=== PATIENT | male | born 1950 | race Caucasian/White ===

== ENCOUNTER 2016-06-30 15:03 | Inpatient (IN) | payer OTHER ==
[2016-06-30 15:26] VITALS: BMI 39.7
--- NOTE | 2016-06-30 22:45 | HP ---
Admitting History and Physical - Admission Chief Complaint: Lt heel ulcer History of Present Illness: Pt is a 66 y/o morbidly obese male who was transferred from [facility] where he jis being treated fro chronic osteo of lt heel on IV zosyn(bacteroides) . Pt has had this chronic heel ulcer for at least 3 years. He has also been followed by vascular surgeon and it has been recommended that he have a LT BKA wc he has refused in the past but has now agreed. Pt denies any fever/chills. 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 (Peripheral neuropathy) Cardiovascular: Yes: HTN, Hyperlipdemia Gastrointestinal: Yes: GERD Heme/Onc: Yes: Anemia Infectious Disease: Yes: Other (Chronic osteomyelitis) Psych: Yes: Depression Endocrine: Yes: Diabetes Insipidus - Past Surgical History Additional Past Surgical History: LT TKR Cysto/TURP - Advance Directives Advance Directives: Yes: Health Care Proxy - Smoking History Smoking history: Former smoker Have you smoked in the past 12 months: No Aproximately how many cigarettes per day: 0 - Alcohol/Substance Use Hx Alcohol Use: No <Christina Peralta - Last Filed: 07/06/16 13:20> Home Medications <Dominic Levy - Last Filed: 07/04/16 12:16> <Christina Peralta - Last Filed: 07/06/16 13:20> - Allergies Allergies/Adverse Reactions: Allergies Allergy/AdvReac Type Severity Reaction Status Date / Time No Known Allergies Allergy Unverified 02/04/16 16:49 - Home Medications Home Medications: Ambulatory Orders Acetaminophen [Tylenol] 650 mg PO PRN 06/30/16 Amino Acids/Protein Hydrolys [Pro-Stat Sugar Free Liquid Pkt] 30 ml PO TID 06/30 Atorvastatin Calcium [Lipitor] 10 mg PO DAILY 06/30/16 Clonazepam [KlonoPIN -] 1 mg PO BID 06/30/16 Docusate Sodium [Colace -] 300 mg PO HS 06/30/16 Heparin - 5,000 unit SQ BID 06/30/16 Insulin Lispro [Humalog] 12 units SQ TID 06/30/16 Lactobacillus Acidophilus [Acidophilus] 1 each PO BID 06/30/16 Multivit-Min/Iron Fum/Folic AC [Dpoue-Nhungbs-Pdnuptyl Tablet] 1 each PO DAILY 06/30/16 Nifedipine [Procardia Capsule -] 10 mg PO BID 06/30/16 Pantoprazole Sodium [Protonix -] 40 mg PO DAILY 06/30/16 Piperacillin Sodium/Tazobactam [Piperacil-Tazobact 3.375 gm Vl] 3.375 gm IV Q6H 06/30/16 Polyethylene Glycol 3350 [Miralax 119 gm Btl -] 17 gm PO PRN 06/30/16 Quetiapine Fumarate [Seroquel -] 200 mg PO HS 06/30/16 Sennosides [Senokot] 2 tab PO DAILY 06/30/16 Family Disease History - Family Disease History Family History: Unremarkable <Christina Peralta - Last Filed: 07/06/16 13:20> Review of Systems - Review of Systems Constitutional: reports: Malaise HENT: reports: No Symptoms Neck: reports: No Symptoms Cardiovascular: reports: No Symptoms Respiratory: reports: No Symptoms Gastrointestinal: reports: No Symptoms Musculoskeletal: reports: Other (Lt heel ulcer) <Christina Peralta - Last Filed: 07/06/16 13:20> Physical Examination Vital Signs: Vital Signs Temperature 97.4 F L 07/04/16 08:49 Pulse Rate 52 L 07/04/16 08:49 Respiratory Rate 18 07/04/16 08:49 Blood Pressure 121/61 07/04/16 09:08 O2 Sat by Pulse Oximetry (%) 96 07/03/16 21:00 Labs: CBC, BMP 07/03/16 06:30 07/04/16 06:45 <Dominic Levy - Last Filed: 07/04/16 12:16> Vital Signs: Vital Signs Temperature 98.1 F 06/30/16 17:32 Pulse Rate 61 06/30/16 21:44 Respiratory Rate 20 06/30/16 17:32 Blood Pressure 142/80 06/30/16 21:44 O2 Sat by Pulse Oximetry (%) 98 06/30/16 15:35 Constitutional: Yes: Obese Neck: Yes: Supple Cardiovascular: Yes: WNL, Regular Rate and Rhythm Respiratory: Yes: WNL, Regular, CTA Bilaterally Gastrointestinal: Yes: WNL, Normal Bowel Sounds, Soft Musculoskeletal: Yes: Other (Lt heel ulcer about 3 cm) Edema: Yes Edema: LLE: Trace, RLE: Trace Neurological: Yes: WNL, Alert, Oriented <Christina Peralta - Last Filed: 07/06/16 13:20> Problem List - Problems (1) Chronic osteomyelitis involving lower leg Assessment/Plan: ID/surgical consults Cont IV zosyn Cont wound care Code(s): M86.669 - OTHER CHRONIC OSTEOMYELITIS, UNSPECIFIED TIBIA AND FIBULA (2) Diabetes Assessment/Plan: Cont humalog Cont sliding scale Code(s): E11.9 - TYPE 2 DIABETES MELLITUS WITHOUT COMPLICATIONS (3) Diabetic ulcer of ankle associated with type 1 diabetes mellitus Code(s): E10.622 - TYPE 1 DIABETES MELLITUS WITH OTHER SKIN ULCER L97.309 - NON-PRESSURE CHRONIC ULCER OF UNSP ANKLE WITH UNSP SEVERITY (4) HLD (hyperlipidemia) Assessment/Plan: Cont lipitor Code(s): E78.5 - HYPERLIPIDEMIA, UNSPECIFIED (5) HTN (hypertension) Assessment/Plan: Cont procardia Code(s): I10 - ESSENTIAL (PRIMARY) HYPERTENSION (6) Morbid obesity Code(s): E66.01 - MORBID (SEVERE) OBESITY DUE TO EXCESS CALORIES <Christina Peralta - Last Filed: 07/06/16 13:20>
[2016-06-30] MEDS ORDERED: ACETAMINOPHEN 325 MG TABLET (FP) PO SCH (23:00)
[2016-06-30] MEDS ORDERED: [UNRECOGNIZED DRUG - OTHER] IV SCH (23:00)
[2016-06-30] MEDS ORDERED: POLYETHYLENE GLYCOL 3350 119 GM BTL PO SCH (23:00)
[2016-06-30] MEDS ORDERED: NIFEdipine 10 MG CAPSULE (FP) PO SCH (23:15)
[2016-06-30] MEDS ORDERED: PIPERACILLIN/TAZOB 3.375 GM/50 ML PRE-DOCKED IVPB ONE (23:15)
[2016-06-30] MEDS ORDERED: clonazePAM 2 MG TABLET PO SCH (23:15)
[2016-07-01] MEDS: clonazePAM 0.5 MG TABLET PO SCH ×3 (00:26→21:15)
[2016-07-01] MEDS: DOCUSATE SODIUM 100 MG CAPSULE (FP) PO SCH ×2 (00:27→21:16)
[2016-07-01] MEDS: QUEtiapine FUMARATE 200 MG TABLET PO SCH ×2 (00:27→21:15)
[2016-07-01] MEDS ORDERED: PIPERACILLIN/TAZOB 3.375 GM/50 ML PRE-DOCKED IVPB SCH (03:00)
[2016-07-01] MEDS: AMINO ACIDS/PROTEIN HYDROLYS SUGAR-FREE 30 ML PACKET PO SCH ×3 (06:41→21:16)
[2016-07-01] MEDS: INSULIN (NOVOLOG) ASPART 100 UNITS/ML 10ML VIAL SQ SCH ×3 (06:42→16:43)
[2016-07-01 08:08] LABS: BASOPHIL 0.7 % (0-2.0); EOSINOPHIL 4.3 % (0-4.5); MCH 25.8 pg (25.7-33.7); MCHC 32.1 g/dl (32.0-35.9); MEAN CELL VOLUME 80.6 fl (80-96); MEAN PLT VOLUME 8.2 fl (7.5-11.1); NEUTROPHILS 58.6 % (42.8-82.8); PLATELET COUNT 205 K/MM3 (134-434); RDW 16.8 % (11.9-15.9); WHITE BLOOD COUNT 4.6 K/mm3 (4.0-10.0)
--- NOTE | 2016-07-01 08:34 | PN ---
Progress Note (short form) - Note Progress Note: ID Large diabetic left heel ulcer with underlying chronic osteomyelitis calcaneus Transfer to see Dr Wagner advised amputation Selected Entries 07/01/16 05:46 Temperature 97.6 F Pulse Rate 60 Respiratory 20 Rate Blood Pressure 130/70 Laboratory Tests 07/01/16 06:15 WBC 4.6 Hgb 11.3 L D Plt Count 205 D Assessment As above multiple PICC lines Incurable infection over 3 years left heel Plan Agree with amputation No antibiotics need be given now Dr Wagner to see Ishaan LEWIS Problem List - Problems (1) Chronic osteomyelitis involving lower leg Code(s): M86.669 - OTHER CHRONIC OSTEOMYELITIS, UNSPECIFIED TIBIA AND FIBULA (2) Diabetic ulcer of ankle associated with type 1 diabetes mellitus Code(s): E10.622 - TYPE 1 DIABETES MELLITUS WITH OTHER SKIN ULCER L97.309 - NON-PRESSURE CHRONIC ULCER OF UNSP ANKLE WITH UNSP SEVERITY
[2016-07-01 09:17] LABS: BILIRUBIN,TOTAL 0.3 mg/dL (0.2-1.0); CALCIUM 9.1 mg/dL (8.5-10.1); CREATININE 1.3 mg/dL (0.7-1.3); TOT PROT 7.2 g/dl (6.4-8.2)
--- NOTE | 2016-07-01 09:24 | CONS ---
DATE OF CONSULTATION: HISTORY: This is a 66-year-old insulin-dependent diabetic male who I am asked to see after being transferred from [facility] for continued management of a severe left heel chronic soft tissue infection. He is a known insulin diabetic with a history of a chronic osteomyelitis of the left heel, which over the last 3 years has failed to heal despite extensive wound care efforts along with multiple PICC lines for treatment with long-term antibiotics. He was admitted now to [facility] where cultures were obtained, and he was found to be positive for Bacteroides fragilis in the blood. He also had a wound culture with mixed kojo including gram-negative organisms including Morganella, Staphylococcus aureus, and Corynebacterium. He was treated with Infectious Disease input with Zosyn, and given the timing of the blood cultures and initiation of antibiotics on the , now would currently be considered day 9 or 10 of therapy. He is afebrile at this time and basically says he was transferred to [facility] as Dr. Wagner is his wound care physician, and the patient has been advised amputation in the past and now appears accepting of this option. Again, he is not febrile with no chills and was sitting up in bed when I saw him. PAST MEDICAL HISTORY: Includes diabetes, hypertension, morbid obesity, peripheral neuropathy, coronary artery disease, congestive heart failure. MEDICATIONS: Insulin, Flovent, Zyrtec, Coumadin, Zocor, Hytrin, Procardia, Dilaudid, simvastatin, Vasotec. ALLERGIES: None known. SOCIAL HISTORY: . Lives in [place]. Formerly worked for the [employer]. Now retired. No pets. No travel. No HIV risk factors. Former smoker. No history of alcohol abuse. FAMILY HISTORY: Reviewed and noncontributory. REVIEW OF SYSTEMS: Respiratory: No cough or shortness of breath. Cardiac: No chest pain or palpitations. Gastrointestinal: No nausea, vomiting, or diarrhea. Genitourinary: No dysuria, hematuria, urinary frequency. PHYSICAL EXAMINATION: General: He is an obese male weighing 285 pounds in no distress. Vital Signs: Temperature 97.6, pulse 60, blood pressure 136, respirations 20. Neck: Supple. Lungs: Clear to P and A. Heart: S1, S2. Regular rhythm without murmur. Abdomen: Soft and nontender without hepatosplenomegaly. Extremities: With bilateral lower extremity edema. A large, necrotic ulcer involving the left heel, which is deep to probe with minimal drainage. No cellulitis seen. Measuring approximately 7 x 8 cm. No labs currently available though most recent BUN 21, creatinine 1.24, GFR 60, glucose 165. ASSESSMENT: Chronic osteomyelitis of the left heel with recent flare up with complicating bacteremia with Bacteroides fragilis now on Zosyn approximately day 9 or 10. At this point, he may or may not need continuous antibiotics for the bacteremia, but I will continue them through the weekend and plan on stopping in 48-72 hours. Surgical consultation for amputation with Dr. Wagner will be requested. Complete labs have been ordered but not yet available in the medical record as of his transfer here. SABINA PALOMARES M.D. [id number]
[2016-07-01] MEDS: PANTOPRAZOLE 40 MG TABLET (FP) PO SCH (09:28)
[2016-07-01] MEDS: LACTOBACILLUS ACIDOPHILUS 1 EACH TAB (FP) PO SCH ×2 (09:28→21:16)
[2016-07-01] MEDS: ATORVASTATIN CA 10 MG TABLET (FP) PO SCH (09:28)
[2016-07-01] MEDS: PIPERACILLIN/TAZOB 3.375 GM 50 ML IVPB SCH ×3 (09:29→21:05)
[2016-07-01] MEDS: MULTIVITAMINS (DAILY MVI) TABLET (FP) PO SCH (09:29)
[2016-07-01] MEDS: HEPARIN NA (PORCINE) 5,000 UNITS/ML 1ML VIAL SQ SCH ×2 (09:29→21:15)
[2016-07-01] MEDS: SENNOSIDES 8.6MG TABLET (FP) PO SCH (09:29)
[2016-07-01] MEDS ORDERED: NIFEdipine 10 MG CAPSULE (FP) PO SCH (10:00)
[2016-07-01] MEDS ORDERED: INSULIN (NOVOLOG) ASPART 100 UNITS/ML 10ML VIAL ONE ×2 (11:08→16:42)
[2016-07-01] MEDS ORDERED: PT OWN MED DRAWER 7, Y5N ONE (20:58)
[2016-07-01] MEDS ORDERED: DOCUSATE SODIUM 100 MG CAPSULE (FP) PO SCH (22:00)
--- NOTE | 2016-07-01 22:38 | PN ---
Progress Note, Physician History of Present Illness: No new complaints - Current Medication List Current Medications: Active Medications Acetaminophen (Tylenol -) 650 mg PO PRN [facility] Amino Acids (Prostat Sugar-Free Packet -) 30 ml PO TID [facility] Last Admin: 07/01/16 21:16 Dose: Not Given Atorvastatin Calcium (Lipitor -) 10 mg PO DAILY [facility] Last Admin: 07/01/16 09:28 Dose: 10 mg Clonazepam (Klonopin -) 1 mg PO BID [facility] Last Admin: 07/01/16 21:15 Dose: 1 mg Docusate Sodium (Colace -) 300 mg PO HS [facility] Last Admin: 07/01/16 21:16 Dose: 300 mg Heparin Sodium (Porcine) (Heparin -) 5,000 unit SQ BID [facility] Last Admin: 07/01/16 21:15 Dose: 5,000 unit Piperacillin Sod/Tazobactam Sod (Zosyn 3.375gm Ivpb (Pre-Docked)) 50 mls @ 100 mls/hr IVPB Q6H-IV [facility] Last Admin: 07/01/16 21:05 Dose: 100 mls/hr Insulin Aspart (Novolog Vial) 12 units SQ TIDAC [facility] Last Admin: 07/01/16 16:43 Dose: 12 units Lactobacillus Acidophilus (Bacid -) 1 tab PO BID [facility] Last Admin: 07/01/16 21:16 Dose: 1 tab Multivitamins/Minerals/Vitamin C (Tab-A-Vit -) 1 tab PO DAILY [facility] Last Admin: 07/01/16 09:29 Dose: 1 tab Nifedipine (Procardia Capsule -) 10 mg PO BID [facility] Pantoprazole Sodium (Protonix -) 40 mg PO DAILY [facility] Last Admin: 07/01/16 09:28 Dose: 40 mg Polyethylene Glycol (Miralax (For Daily Use) -) 17 gm PO PRN [facility] Quetiapine Fumarate (Seroquel -) 200 mg PO HS [facility] Last Admin: 07/01/16 21:15 Dose: 200 mg Senna (Senna -) 2 tab PO DAILY [facility] Last Admin: 07/01/16 09:29 Dose: Not Given - Objective Vital Signs: Vital Signs Temperature 98.2 F 07/01/16 18:00 Pulse Rate 51 L 07/01/16 18:00 Respiratory Rate 20 07/01/16 18:00 Blood Pressure 124/67 07/01/16 18:00 O2 Sat by Pulse Oximetry (%) 98 06/30/16 21:00 Constitutional: Yes: Well Nourished Cardiovascular: Yes: WNL, Regular Rate and Rhythm Respiratory: Yes: WNL, Regular, CTA Bilaterally Gastrointestinal: Yes: WNL, Normal Bowel Sounds, Soft, Abdomen, Obese Extremities: Yes: Other (Dressing on Lt heel w/ some oozing) Labs: CBC, BMP 07/01/16 06:15 07/01/16 06:15 Problem List - Problems (1) Chronic osteomyelitis involving lower leg Assessment/Plan: ID consult appreciated Vascular consult Probable amputation Cont IV zosyn Code(s): M86.669 - OTHER CHRONIC OSTEOMYELITIS, UNSPECIFIED TIBIA AND FIBULA (2) Diabetic ulcer of ankle associated with type 1 diabetes mellitus Code(s): E10.622 - TYPE 1 DIABETES MELLITUS WITH OTHER SKIN ULCER L97.309 - NON-PRESSURE CHRONIC ULCER OF UNSP ANKLE WITH UNSP SEVERITY
[2016-07-02] MEDS: PIPERACILLIN/TAZOB 3.375 GM 50 ML IVPB SCH ×4 (03:28→21:05)
[2016-07-02] MEDS: AMINO ACIDS/PROTEIN HYDROLYS SUGAR-FREE 30 ML PACKET PO SCH ×3 (06:28→21:19)
[2016-07-02] MEDS: INSULIN (NOVOLOG) ASPART 100 UNITS/ML 10ML VIAL SQ SCH ×3 (06:28→17:13)
[2016-07-02] MEDS: MULTIVITAMINS (DAILY MVI) TABLET (FP) PO SCH (09:13)
[2016-07-02] MEDS: HEPARIN NA (PORCINE) 5,000 UNITS/ML 1ML VIAL SQ SCH ×2 (09:13→21:19)
[2016-07-02] MEDS: clonazePAM 0.5 MG TABLET PO SCH ×2 (09:13→21:18)
[2016-07-02] MEDS: ATORVASTATIN CA 10 MG TABLET (FP) PO SCH (09:13)
[2016-07-02] MEDS: LACTOBACILLUS ACIDOPHILUS 1 EACH TAB (FP) PO SCH ×2 (09:13→21:18)
[2016-07-02] MEDS: PANTOPRAZOLE 40 MG TABLET (FP) PO SCH (09:13)
[2016-07-02] MEDS: SENNOSIDES 8.6MG TABLET (FP) PO SCH (09:13)
--- NOTE | 2016-07-02 09:33 | CONSULT ---
Addendum entered and electronically signed by Karel Collins PA 07/03/16 11:14: f/u LLE tib/fib xray to identify tibial stem (h/o TKR) Original Note: - Consultation REQUESTING PROVIDER: Bryant Wagner - Vascular Surgery / Wound Care CONSULT REQUEST: We have been asked to surgically evaluate this patient for diabetic left heel ulcer. PCP: Christina Peralta HISTORY OF PRESENT ILLNESS: Called to eval 66yo male with PMHx noted below. Admitted to [facility] with chronic left heel (diabteic ulcer). Patient states he's had this ulcer for 3 years and still hasn't been able to close. He informs me that he has had multiple PICC lines to treat the associated calcaneal osteomyelitis. He tried wound VAC therapy without success. ID note appreciated. Patient states he's had a converation with Dr. Wagner regarding LLE BKA and wishes to proceed if it's deemed the most prudent. A elizabeth cath was placed in Er as he was in retention. He ambulates with a walker. Denies: diaphoresis, n/v/f, cough, SOB, DUFF, hematuria, flank pain PMHx: Diabetes, peripheral neuropathy, chronic left heel dm ulcer x3 yrs, hyperlipidemia PSHx: Left total knee replacement, Cysto/TURP HOME MEDS Acetaminophen [Tylenol] 650 mg PO PRN 06/30/16 Amino Acids/Protein Hydrolys [Pro-Stat Sugar Free Liquid Pkt] 30 ml PO TID 06/30 Atorvastatin Calcium [Lipitor] 10 mg PO DAILY 06/30/16 Clonazepam [KlonoPIN -] 1 mg PO BID 06/30/16 Docusate Sodium [Colace -] 300 mg PO HS 06/30/16 Heparin - 5,000 unit SQ BID 06/30/16 Insulin Lispro [Humalog] 12 units SQ TID 06/30/16 Lactobacillus Acidophilus [Acidophilus] 1 each PO BID 06/30/16 Multivit-Min/Iron Fum/Folic AC [Goxmd-Hxuzoss-Kegphuqh Tablet] 1 each PO DAILY 06/30/16 Nifedipine [Procardia Capsule -] 10 mg PO BID 06/30/16 Pantoprazole Sodium [Protonix -] 40 mg PO DAILY 06/30/16 Piperacillin Sodium/Tazobactam [Piperacil-Tazobact 3.375 gm Vl] 3.375 gm IV Q6H 06/30/16 Polyethylene Glycol 3350 [Miralax 119 gm Btl -] 17 gm PO PRN 06/30/16 Quetiapine Fumarate [Seroquel -] 200 mg PO HS 06/30/16 Sennosides [Senokot] 2 tab PO DAILY 06/30/16 Allergies: NKDA ROS: CONSTITUTIONAL: Absent: See above. generalized weakness, malaise, loss of appetite, weight change CARDIOVASCULAR: Absent: See above. irregular heart rate, lightheadedness RESPIRATORY: Absent: See above. wheezing, stridor, hemoptysis GASTROINTESTINAL: Absent: See above. abdominal pain, abdominal distension, constipation, melena, hematochezia GENITOURINARY: Absent: See above. dysuria, frequency, urgency, hesitancy, genital pain MUSCULOSKELETAL: Absent: myalgia, arthralgia, joint swelling, back pain, neck pain SKIN: Absent: rash, itching, pallor HEMATOLOGIC/IMMUNOLOGIC: Absent: easy bleeding, easy bruising, lymphadenopathy NEUROLOGIC: Absent: See above. headache, focal weakness, paresthesias, dizziness , seizure, mental status changes PSYCHIATRIC: Absent: anxiety, depression, suicidal or homicidal ideation, hallucinations. PE: GENERAL: Awake, alert, and fully oriented, in no acute distress. HEAD: Normal with no signs of trauma. EYES: PERRL, sclera anicteric, conjunctiva clear. NECK: Normal ROM, supple without lymphadenopathy, JVD, or masses. LUNGS: CTA b/l anteriorly HEART: RRR ABDOMEN: Obese. Soft, nt. nd. MUSCULOSKELETAL: Normal ROM at all joints. No bony deformities or tenderness. No CVA tenderness. UE: 2+ pulses, warm, well-perfused. No cyanosis. Cap refill <2 seconds. No peripheral edema. LE: 2+ pulses, warm, well-perfused. No calf tenderness. No peripheral edema. Chronic left heel dm ulcer, pink granulation tissue to base. Centrally, it probes down to calcaneous. Little bit of slough to center of wound. Evidence of wound contacture to edges. No foul odor. No induration bogginess appreciated. No purulent drainage. NEUROLOGICAL: Normal speech, gait not observed. PSYCH: Cooperative. Good eye contact. Appropriate mood and affect. SKIN: Warm, dry, normal turgor, no rashes or lesions noted. Last Vital Signs Temp Pulse Resp BP Pulse Ox 97.6 F 54 L 20 110/60 99 07/02/16 05:49 07/02/16 05:49 07/02/16 05:49 07/02/16 05:49 07/01/16 21:00 Lab Results WBC 4.6 K/mm3 (4.0-10.0) 07/01/16 06:15 RBC 4.37 M/mm3 (4.00-5.60) 07/01/16 06:15 Hgb 11.3 GM/dL (11.7-16.9) L D 07/01/16 06:15 Hct 35.2 % (35.4-49) L 07/01/16 06:15 MCV 80.6 fl (80-96) 07/01/16 06:15 MCHC 32.1 g/dl (32.0-35.9) 07/01/16 06:15 RDW 16.8 % (11.9-15.9) H 07/01/16 06:15 Plt Count 205 K/MM3 (134-434) D 07/01/16 06:15 Sodium 138 mmol/L (136-145) 07/01/16 06:15 Potassium 4.7 mmol/L (3.5-5.1) 07/01/16 06:15 Chloride 98 mmol/L (98-107) 07/01/16 06:15 Carbon Dioxide 32 mmol/L (21-32) 07/01/16 06:15 Anion Gap 8 (8-16) 07/01/16 06:15 BUN 26 mg/dL (7-18) H D 07/01/16 06:15 Creatinine 1.3 mg/dL (0.7-1.3) 07/01/16 06:15 Random Glucose 148 mg/dL (74-106) H 07/01/16 06:15 Calcium 9.1 mg/dL (8.5-10.1) 07/01/16 06:15 Problem List - Problems (1) Chronic osteomyelitis involving lower leg Assessment/Plan: Daily dressing changes with santyl to central portion. Offload all pressure sensitive areas ID note appreciated Cont medical management at this time. Cardio clearance Type and screen [facility] Medical optimization / clearance for possible LLE BKA Above plan discussed with Dr. Wagner states he will see patient first thing in the morning and decide on definitive plan. Code(s): M86.669 - OTHER CHRONIC OSTEOMYELITIS, UNSPECIFIED TIBIA AND FIBULA Visit type - Case Type Case Type: ED Admission - Emergency Emergency Visit: Yes ED Registration Date: 06/30/16 Care time: The patient presented to the Emergency Department on the above date and was hospitalized for further evaluation of their emergent condition. - New patient This patient is new to me today: Yes Date on this admission: 07/02/16
[2016-07-02] MEDS ORDERED: INSULIN (NOVOLOG) ASPART 100 UNITS/ML 10ML VIAL ONE (11:03)
--- NOTE | 2016-07-02 11:33 | PN ---
Progress Note, Physician History of Present Illness: Awake, alert No c/o heel pain No fever/ chills - Current Medication List Current Medications: Active Medications Acetaminophen (Tylenol -) 650 mg PO PRN [facility] Amino Acids (Prostat Sugar-Free Packet -) 30 ml PO TID [facility] Last Admin: 07/02/16 06:28 Dose: Not Given Atorvastatin Calcium (Lipitor -) 10 mg PO DAILY [facility] Last Admin: 07/02/16 09:13 Dose: 10 mg Clonazepam (Klonopin -) 1 mg PO BID [facility] Last Admin: 07/02/16 09:13 Dose: 1 mg Docusate Sodium (Colace -) 300 mg PO HS [facility] Last Admin: 07/01/16 21:16 Dose: 300 mg Heparin Sodium (Porcine) (Heparin -) 5,000 unit SQ BID [facility] Last Admin: 07/02/16 09:13 Dose: 5,000 unit Piperacillin Sod/Tazobactam Sod (Zosyn 3.375gm Ivpb (Pre-Docked)) 50 mls @ 100 mls/hr IVPB Q6H-IV [facility] Last Admin: 07/02/16 09:13 Dose: 100 mls/hr Insulin Aspart (Novolog Vial) 12 units SQ TIDAC [facility] Last Admin: 07/02/16 11:04 Dose: 12 units Lactobacillus Acidophilus (Bacid -) 1 tab PO BID [facility] Last Admin: 07/02/16 09:13 Dose: 1 tab Multivitamins/Minerals/Vitamin C (Tab-A-Vit -) 1 tab PO DAILY [facility] Last Admin: 07/02/16 09:13 Dose: 1 tab Nifedipine (Procardia Capsule -) 10 mg PO BID [facility] Pantoprazole Sodium (Protonix -) 40 mg PO DAILY [facility] Last Admin: 07/02/16 09:13 Dose: 40 mg Polyethylene Glycol (Miralax (For Daily Use) -) 17 gm PO PRN [facility] Quetiapine Fumarate (Seroquel -) 200 mg PO HS [facility] Last Admin: 07/01/16 21:15 Dose: 200 mg Senna (Senna -) 2 tab PO DAILY [facility] Last Admin: 07/02/16 09:13 Dose: Not Given - Objective Vital Signs: Vital Signs Temperature 97.9 F 07/02/16 10:00 Pulse Rate 83 07/02/16 10:00 Respiratory Rate 20 07/02/16 10:00 Blood Pressure 121/68 07/02/16 10:00 O2 Sat by Pulse Oximetry (%) 99 07/01/16 21:00 Constitutional: Yes: No Distress, Obese Eyes: Yes: Conjunctiva Clear Cardiovascular: Yes: Regular Rate and Rhythm, S1, S2 Respiratory: Yes: CTA Bilaterally Gastrointestinal: Yes: Normal Bowel Sounds, Soft, Abdomen, Obese. No: Tenderness Edema: Yes Integumentary: Yes: Other (+ L heel ulcer ; no purulent drainage) Labs: CBC, BMP 07/01/16 06:15 07/01/16 06:15 Assessment/Plan Infected non-healing L heel ulcer Chronic osteomyelitis L heel Bacteroides bacteremia by hx IDDM Continue Zosyn Local wound care Surgical follow up
[2016-07-02 13:21] LABS: INR 1.16 (0.82-1.09); PROTHROMBIN TIME (PATIENT) 12.8 SEC (9.98-11.88)
--- NOTE | 2016-07-02 20:44 | PN ---
Progress Note, Physician History of Present Illness: No new complaints - Current Medication List Current Medications: Active Medications Acetaminophen (Tylenol -) 650 mg PO PRN [facility] Amino Acids (Prostat Sugar-Free Packet -) 30 ml PO TID [facility] Last Admin: 07/02/16 13:36 Dose: Not Given Atorvastatin Calcium (Lipitor -) 10 mg PO DAILY [facility] Last Admin: 07/02/16 09:13 Dose: 10 mg Clonazepam (Klonopin -) 1 mg PO BID [facility] Last Admin: 07/02/16 09:13 Dose: 1 mg Docusate Sodium (Colace -) 300 mg PO HS [facility] Last Admin: 07/01/16 21:16 Dose: 300 mg Heparin Sodium (Porcine) (Heparin -) 5,000 unit SQ BID [facility] Last Admin: 07/02/16 09:13 Dose: 5,000 unit Piperacillin Sod/Tazobactam Sod (Zosyn 3.375gm Ivpb (Pre-Docked)) 50 mls @ 100 mls/hr IVPB Q6H-IV [facility] Last Admin: 07/02/16 15:05 Dose: 100 mls/hr Insulin Aspart (Novolog Vial) 12 units SQ TIDAC [facility] Last Admin: 07/02/16 17:13 Dose: 12 units Lactobacillus Acidophilus (Bacid -) 1 tab PO BID [facility] Last Admin: 07/02/16 09:13 Dose: 1 tab Multivitamins/Minerals/Vitamin C (Tab-A-Vit -) 1 tab PO DAILY [facility] Last Admin: 07/02/16 09:13 Dose: 1 tab Nifedipine (Procardia Capsule -) 10 mg PO BID [facility] Pantoprazole Sodium (Protonix -) 40 mg PO DAILY [facility] Last Admin: 07/02/16 09:13 Dose: 40 mg Polyethylene Glycol (Miralax (For Daily Use) -) 17 gm PO PRN [facility] Quetiapine Fumarate (Seroquel -) 200 mg PO HS [facility] Last Admin: 07/01/16 21:15 Dose: 200 mg Senna (Senna -) 2 tab PO DAILY [facility] Last Admin: 07/02/16 09:13 Dose: Not Given - Objective Vital Signs: Vital Signs Temperature 97.7 F 07/02/16 18:00 Pulse Rate 62 07/02/16 18:00 Respiratory Rate 20 07/02/16 18:00 Blood Pressure 98/54 07/02/16 18:00 O2 Sat by Pulse Oximetry (%) 99 07/01/16 21:00 Constitutional: Yes: Well Nourished Neck: Yes: Supple Cardiovascular: Yes: WNL, Regular Rate and Rhythm Respiratory: Yes: WNL, Regular, CTA Bilaterally Gastrointestinal: Yes: WNL, Normal Bowel Sounds, Soft Musculoskeletal: Yes: Other (LT heel ulcer) Labs: CBC, BMP 07/01/16 06:15 07/01/16 06:15 INR, PTT INR 1.16 (0.82-1.09) H 07/02/16 12:40 Problem List - Problems (1) Chronic osteomyelitis involving lower leg Assessment/Plan: ID/surgical consults appreciated Probable amputation Cont IV zosyn Will get cardio consult for clearance Check echo Code(s): M86.669 - OTHER CHRONIC OSTEOMYELITIS, UNSPECIFIED TIBIA AND FIBULA (2) Diabetic ulcer of ankle associated with type 1 diabetes mellitus Code(s): E10.622 - TYPE 1 DIABETES MELLITUS WITH OTHER SKIN ULCER L97.309 - NON-PRESSURE CHRONIC ULCER OF UNSP ANKLE WITH UNSP SEVERITY Assessment/Plan 1.HTN BP stable Check echo DC asa for surgery 2.HLD Cont lipitor 3.Diabetes Cont novalog/sliding scale 4.Morbid obesity 5.Depression Cont seroquel
[2016-07-02] MEDS ORDERED: PT OWN MED DRAWER 7, Y5N ONE (21:00)
[2016-07-02] MEDS: DOCUSATE SODIUM 100 MG CAPSULE (FP) PO SCH (21:18)
[2016-07-02] MEDS: QUEtiapine FUMARATE 200 MG TABLET PO SCH (21:18)
[2016-07-03] MEDS: PIPERACILLIN/TAZOB 3.375 GM 50 ML IVPB SCH ×2 (02:36→09:10)
[2016-07-03] MEDS: AMINO ACIDS/PROTEIN HYDROLYS SUGAR-FREE 30 ML PACKET PO SCH ×3 (06:13→21:32)
[2016-07-03] MEDS: INSULIN (NOVOLOG) ASPART 100 UNITS/ML 10ML VIAL SQ SCH ×3 (06:15→17:20)
[2016-07-03 07:24] LABS: EOSINOPHIL 5.2 % (0-4.5); MEAN PLT VOLUME 7.9 fl (7.5-11.1); NEUTROPHILS 68.9 % (42.8-82.8); PLATELET COUNT 180 K/MM3 (134-434); RDW 17.4 % (11.9-15.9); WHITE BLOOD COUNT 5.7 K/mm3 (4.0-10.0)
[2016-07-03] MEDS: PANTOPRAZOLE 40 MG TABLET (FP) PO SCH (09:13)
[2016-07-03] MEDS: SENNOSIDES 8.6MG TABLET (FP) PO SCH (09:13)
[2016-07-03] MEDS: LACTOBACILLUS ACIDOPHILUS 1 EACH TAB (FP) PO SCH ×2 (09:13→21:31)
[2016-07-03] MEDS: MULTIVITAMINS (DAILY MVI) TABLET (FP) PO SCH (09:13)
[2016-07-03] MEDS: ATORVASTATIN CA 10 MG TABLET (FP) PO SCH (09:13)
[2016-07-03] MEDS: HEPARIN NA (PORCINE) 5,000 UNITS/ML 1ML VIAL SQ SCH ×2 (09:14→21:32)
[2016-07-03] MEDS: clonazePAM 0.5 MG TABLET PO SCH ×2 (09:14→21:31)
--- NOTE | 2016-07-03 09:26 | CON.CARD ---
Consult Consult Specialty:: Cardiology Reason for Consultation:: preop clearence - History of Present Illness History of Present Illness: 66yo male with PMHx Diabetes, peripheral neuropathy, chronic left heel dm ulcer x3 yrs, hyperlipidemia. Admitted to [facility] with chronic left heel (diabteic ulcer) . Patient states he's had this ulcer for 3 years and still hasn't been able to close. He informs me that he has had multiple PICC lines to treat the associated calcaneal osteomyelitis. He tried wound VAC therapy without success. ID note appreciated. Patient states he's had a converation with Dr. Wagner regarding LLE BKA and wishes to proceed if it's deemed the most prudent. A elizabeth cath was placed in [place] as he was in retention. He ambulates with a walker. - Past Medical History Cardio/Vascular: Yes: HTN, Hyperlipdemia - Alcohol/Substance Use Hx Alcohol Use: No - Smoking History Smoking history: Former smoker Have you smoked in the past 12 months: No Aproximately how many cigarettes per day: 0 Home Medications - Allergies Allergies/Adverse Reactions: Allergies Allergy/AdvReac Type Severity Reaction Status Date / Time No Known Allergies Allergy Unverified 02/04/16 16:49 - Home Medications Home Medications: Ambulatory Orders Acetaminophen [Tylenol] 650 mg PO PRN 06/30/16 Amino Acids/Protein Hydrolys [Pro-Stat Sugar Free Liquid Pkt] 30 ml PO TID 06/30 Atorvastatin Calcium [Lipitor] 10 mg PO DAILY 06/30/16 Clonazepam [KlonoPIN -] 1 mg PO BID 06/30/16 Docusate Sodium [Colace -] 300 mg PO HS 06/30/16 Heparin - 5,000 unit SQ BID 06/30/16 Insulin Lispro [Humalog] 12 units SQ TID 06/30/16 Lactobacillus Acidophilus [Acidophilus] 1 each PO BID 06/30/16 Multivit-Min/Iron Fum/Folic AC [Ecnha-Kagnepe-Yhkcghhf Tablet] 1 each PO DAILY 06/30/16 Nifedipine [Procardia Capsule -] 10 mg PO BID 06/30/16 Pantoprazole Sodium [Protonix -] 40 mg PO DAILY 06/30/16 Piperacillin Sodium/Tazobactam [Piperacil-Tazobact 3.375 gm Vl] 3.375 gm IV Q6H 06/30/16 Polyethylene Glycol 3350 [Miralax 119 gm Btl -] 17 gm PO PRN 06/30/16 Quetiapine Fumarate [Seroquel -] 200 mg PO HS 06/30/16 Sennosides [Senokot] 2 tab PO DAILY 06/30/16 Review of Systems - Review of Systems Constitutional: reports: No Symptoms Eyes: reports: No Symptoms HENT: reports: No Symptoms Neck: reports: No Symptoms Cardiovascular: reports: Edema Gastrointestinal: reports: No Symptoms Genitourinary: reports: No Symptoms Breasts: reports: No Symptoms Reported Musculoskeletal: reports: No Symptoms Integumentary: reports: No Symptoms Neurological: reports: No Symptoms Endocrine: reports: No Symptoms Hematology/Lymphatic: reports: No Symptoms Psychiatric: reports: No Symptoms Vital Signs: Vital Signs Temperature 97.1 F L 07/03/16 08:07 Pulse Rate 56 L 07/03/16 08:07 Respiratory Rate 20 07/03/16 08:07 Blood Pressure 118/69 07/03/16 08:07 O2 Sat by Pulse Oximetry (%) 99 07/01/16 21:00 - Other Data Labs, Other Data: CBC, BMP 07/03/16 06:30 07/01/16 06:15 INR, PTT INR 1.16 (0.82-1.09) H 07/02/16 12:40 Imaging - Results Chest X-ray: Pending EKG: Pending Problem List - Problems (1) Chronic osteomyelitis involving lower leg Code(s): M86.669 - OTHER CHRONIC OSTEOMYELITIS, UNSPECIFIED TIBIA AND FIBULA (2) Diabetic ulcer of ankle associated with type 1 diabetes mellitus Code(s): E10.622 - TYPE 1 DIABETES MELLITUS WITH OTHER SKIN ULCER L97.309 - NON-PRESSURE CHRONIC ULCER OF UNSP ANKLE WITH UNSP SEVERITY (3) Closed head injury Code(s): S09.90XA - UNSPECIFIED INJURY OF HEAD, INITIAL ENCOUNTER (4) Osteomyelitis Code(s): M86.9 - OSTEOMYELITIS, UNSPECIFIED Qualifiers: Osteomyelitis location: foot Laterality: left Chronicity: chronic Qualified Code(s): M86.672 - Other chronic osteomyelitis, left ankle and foot (5) Pseudomonas aeruginosa infection Code(s): A49.8 - OTHER BACTERIAL INFECTIONS OF UNSPECIFIED SITE Assessment/Plan ostio dm htn hld r/o ashd preop eval for possible LL ext BKA Plan echo ekg lipid profile - keep ldl below 70 persantine MIBI stress test
--- NOTE | 2016-07-03 10:49 | PN ---
Progress Note, Physician Chief Complaint: ID Zosyn day 12 therapy IV antibiotics for bacteremia Bacteroides Remains stable - Current Medication List Current Medications: Active Medications Acetaminophen (Tylenol -) 650 mg PO PRN [facility] Amino Acids (Prostat Sugar-Free Packet -) 30 ml PO TID [facility] Last Admin: 07/03/16 06:13 Dose: Not Given Atorvastatin Calcium (Lipitor -) 10 mg PO DAILY [facility] Last Admin: 07/03/16 09:13 Dose: 10 mg Clonazepam (Klonopin -) 1 mg PO BID [facility] Last Admin: 07/03/16 09:14 Dose: Not Given Docusate Sodium (Colace -) 300 mg PO HS [facility] Last Admin: 07/02/16 21:18 Dose: 300 mg Heparin Sodium (Porcine) (Heparin -) 5,000 unit SQ BID [facility] Last Admin: 07/03/16 09:14 Dose: 5,000 unit Piperacillin Sod/Tazobactam Sod (Zosyn 3.375gm Ivpb (Pre-Docked)) 50 mls @ 100 mls/hr IVPB Q6H-IV [facility] Last Admin: 07/03/16 09:10 Dose: 100 mls/hr Insulin Aspart (Novolog Vial) 12 units SQ TIDAC [facility] Last Admin: 07/03/16 06:15 Dose: 12 units Lactobacillus Acidophilus (Bacid -) 1 tab PO BID [facility] Last Admin: 07/03/16 09:13 Dose: 1 tab Multivitamins/Minerals/Vitamin C (Tab-A-Vit -) 1 tab PO DAILY [facility] Last Admin: 07/03/16 09:13 Dose: 1 tab Nifedipine (Procardia Capsule -) 10 mg PO BID [facility] Pantoprazole Sodium (Protonix -) 40 mg PO DAILY [facility] Last Admin: 07/03/16 09:13 Dose: 40 mg Polyethylene Glycol (Miralax (For Daily Use) -) 17 gm PO PRN [facility] Quetiapine Fumarate (Seroquel -) 200 mg PO HS [facility] Last Admin: 07/02/16 21:18 Dose: 200 mg Senna (Senna -) 2 tab PO DAILY [facility] Last Admin: 07/03/16 09:13 Dose: 2 tab - Objective Vital Signs: Vital Signs Temperature 97.1 F L 07/03/16 08:07 Pulse Rate 56 L 07/03/16 08:07 Respiratory Rate 20 07/03/16 08:07 Blood Pressure 118/69 07/03/16 08:07 O2 Sat by Pulse Oximetry (%) 99 07/01/16 21:00 Constitutional: Yes: Well Nourished, No Distress, Obese Neck: Yes: WNL, Supple Cardiovascular: Yes: Regular Rate and Rhythm, S1, S2 Respiratory: Yes: WNL, Regular, CTA Bilaterally Gastrointestinal: Yes: WNL, Normal Bowel Sounds, Soft. No: Tenderness, Tenderness, Rebound Extremities: Yes: Other (LE chronic nonhealing wound heel) Labs: CBC, BMP 07/03/16 06:30 07/01/16 06:15 INR, PTT INR 1.16 (0.82-1.09) H 07/02/16 12:40 Problem List - Problems (1) Chronic osteomyelitis involving lower leg Code(s): M86.669 - OTHER CHRONIC OSTEOMYELITIS, UNSPECIFIED TIBIA AND FIBULA (2) Diabetic ulcer of ankle associated with type 1 diabetes mellitus Code(s): E10.622 - TYPE 1 DIABETES MELLITUS WITH OTHER SKIN ULCER L97.309 - NON-PRESSURE CHRONIC ULCER OF UNSP ANKLE WITH UNSP SEVERITY Assessment/Plan Laboratory Tests 07/01/16 07/02/16 07/03/16 06:15 06:20 06:30 WBC 5.7 Hgb 11.3 L Hct 35.2 L Plt Count 180 ESR 66 H BUN 26 H D Creatinine 1.3 Assessment Chronically infected heel wound calcaneous with underlying osteomyelitis 2-3 years with this and multiple PICC lines to no avail. Recent episode of bactermia sepsis at [place]. Plan Stop antibiotics Vascular consult I feel the wound not going to heel and consideration to be given to an amputation Ishaan LEWIS
--- NOTE | 2016-07-03 17:01 | PN ---
Progress Note (short form) - Note Progress Note: Vascular Surgery Pt seen and examined. Left heel Diabetic foot ulcer with chronic osteo. Pt has had this for 2-3 years. Spoke to pt about risks and benefits of amputation. Pt asked me if he can get hyperbaric along with apligraf skin grafts. He has not had those treatments as of yet. He has had insurance issues covering him for these modalities. Hospital looking into his insurance and his secondary. Can consider HBO and apligraf. If that does not help him, he understands he needs a bka. Bryant Wagner DO
[2016-07-03] MEDS ORDERED: INSULIN (NOVOLOG) ASPART 100 UNITS/ML 10ML VIAL ONE (17:17)
--- NOTE | 2016-07-03 19:32 | PN ---
Progress Note, Physician History of Present Illness: Pt w/ wound on lt thumb from hot water burn - Current Medication List Current Medications: Active Medications Acetaminophen (Tylenol -) 650 mg PO PRN [facility] Amino Acids (Prostat Sugar-Free Packet -) 30 ml PO TID [facility] Last Admin: 07/03/16 13:20 Dose: Not Given Atorvastatin Calcium (Lipitor -) 10 mg PO DAILY [facility] Last Admin: 07/03/16 09:13 Dose: 10 mg Clonazepam (Klonopin -) 1 mg PO BID [facility] Last Admin: 07/03/16 09:14 Dose: Not Given Collagenase (Santyl -) 1 applic TP DAILY [facility] Docusate Sodium (Colace -) 300 mg PO HS [facility] Last Admin: 07/02/16 21:18 Dose: 300 mg Heparin Sodium (Porcine) (Heparin -) 5,000 unit SQ BID [facility] Last Admin: 07/03/16 09:14 Dose: 5,000 unit Insulin Aspart (Novolog Vial) 12 units SQ TIDAC [facility] Last Admin: 07/03/16 17:20 Dose: 12 units Lactobacillus Acidophilus (Bacid -) 1 tab PO BID [facility] Last Admin: 07/03/16 09:13 Dose: 1 tab Multivitamins/Minerals/Vitamin C (Tab-A-Vit -) 1 tab PO DAILY [facility] Last Admin: 07/03/16 09:13 Dose: 1 tab Nifedipine (Procardia Capsule -) 10 mg PO BID [facility] Pantoprazole Sodium (Protonix -) 40 mg PO DAILY [facility] Last Admin: 07/03/16 09:13 Dose: 40 mg Polyethylene Glycol (Miralax (For Daily Use) -) 17 gm PO PRN [facility] Quetiapine Fumarate (Seroquel -) 200 mg PO HS [facility] Last Admin: 07/02/16 21:18 Dose: 200 mg Senna (Senna -) 2 tab PO DAILY [facility] Last Admin: 07/03/16 09:13 Dose: 2 tab Silver Sulfadiazine (Silvadene -) 1 applic TP BID [facility] - Objective Vital Signs: Vital Signs Temperature 97.7 F 07/03/16 13:48 Pulse Rate 72 07/03/16 13:48 Respiratory Rate 20 07/03/16 08:07 Blood Pressure 129/74 07/03/16 13:48 O2 Sat by Pulse Oximetry (%) 99 07/01/16 21:00 Constitutional: Yes: Well Nourished Neck: Yes: Supple Cardiovascular: Yes: WNL, Regular Rate and Rhythm Respiratory: Yes: WNL, Regular Gastrointestinal: Yes: WNL, Normal Bowel Sounds, Soft Extremities: Yes: Other (LT heel ulcer (+) burn lt thumb w/ dressing) Labs: CBC, BMP 07/03/16 06:30 07/01/16 06:15 INR, PTT INR 1.16 (0.82-1.09) H 07/02/16 12:40 Problem List - Problems (1) Chronic osteomyelitis involving lower leg Assessment/Plan: ID/surgical consults appreciated Vascular recommendations probably apligraf/HBO first and if treatment failure than amputation However will need approval by insurance Will start PT kimberly frey dc'ed Code(s): M86.669 - OTHER CHRONIC OSTEOMYELITIS, UNSPECIFIED TIBIA AND FIBULA (2) 1St deg burn finger Assessment/Plan: Cont silvadene/dressing/wound care Code(s): T23.129A - BURN FIRST DEGREE OF UNSP SINGLE FINGER EXCEPT THUMB, INIT (3) Diabetic ulcer of ankle associated with type 1 diabetes mellitus Code(s): E10.622 - TYPE 1 DIABETES MELLITUS WITH OTHER SKIN ULCER L97.309 - NON-PRESSURE CHRONIC ULCER OF UNSP ANKLE WITH UNSP SEVERITY (4) HTN (hypertension) Code(s): I10 - ESSENTIAL (PRIMARY) HYPERTENSION (5) Diabetes Code(s): E11.9 - TYPE 2 DIABETES MELLITUS WITHOUT COMPLICATIONS (6) HLD (hyperlipidemia) Code(s): E78.5 - HYPERLIPIDEMIA, UNSPECIFIED (7) Morbid obesity Code(s): E66.01 - MORBID (SEVERE) OBESITY DUE TO EXCESS CALORIES
[2016-07-03] MEDS: QUEtiapine FUMARATE 200 MG TABLET PO SCH (21:31)
[2016-07-03] MEDS: DOCUSATE SODIUM 100 MG CAPSULE (FP) PO SCH (21:32)
[2016-07-03] MEDS: COLLAGENASE CLOSTRIDIUM HIST. 30 GRAMS TUBE TP SCH (22:28)
[2016-07-03] MEDS: SILVER SULFADIAZINE 1% TOP CREAM 50 GM JAR TP SCH (22:29)
--- NOTE | 2016-07-04 00:24 | EKG ---
Test Reason : Blood Pressure : / mmHG Vent. Rate : 075 BPM Atrial Rate : 075 BPM P-R Int : 160 ms QRS Dur : 098 ms QT Int : 396 ms P-R-T Axes : 020 -38 036 degrees QTc Int : 442 ms NORMAL SINUS RHYTHM LEFT AXIS DEVIATION MODERATE VOLTAGE CRITERIA FOR LVH, MAY BE NORMAL VARIANT ABNORMAL ECG WHEN COMPARED WITH ECG OF 04-FEB-2016 20:30, NO SIGNIFICANT CHANGE WAS FOUND Confirmed by UBALDO LEWIS, ADRIÁN ([id number]) on 07/04/2016 12:24:28 AM Referred By: SONY LOZANO Confirmed By:ADRIÁN CONNER MD
[2016-07-04] MEDS: AMINO ACIDS/PROTEIN HYDROLYS SUGAR-FREE 30 ML PACKET PO SCH ×3 (06:25→21:34)
[2016-07-04] MEDS: INSULIN (NOVOLOG) ASPART 100 UNITS/ML 10ML VIAL SQ SCH ×3 (06:28→17:01)
[2016-07-04 08:39] LABS: ALK PHOS 112 U/L (45-117); ANION GAP 8 (8-16); BILIRUBIN,TOTAL 0.3 mg/dL (0.2-1.0); CALCIUM 9.1 mg/dL (8.5-10.1); CO2 30 mmol/L (21-32); CREATININE 1.2 mg/dL (0.7-1.3); GLUCOSE,RANDOM 182 mg/dL (74-106); SGOT/AST 15 U/L (15-37); SGPT/ALT 17 U/L (12-78); TOT PROT 6.9 g/dl (6.4-8.2)
[2016-07-04] MEDS ORDERED: DIPYRIDAMOLE STRESS TEST 50 MG in DEXTROSE 5%-WATER - 40 ML IVPB ONE (10:00)
--- NOTE | 2016-07-04 12:15 | PN ---
Progress Note, Physician Chief Complaint: Pt returned from Stress MIBI; no chest pain or dyspnea. - Current Medication List Current Medications: Active Medications Acetaminophen (Tylenol -) 650 mg PO PRN [facility] Amino Acids (Prostat Sugar-Free Packet -) 30 ml PO TID [facility] Last Admin: 07/04/16 06:25 Dose: Not Given Atorvastatin Calcium (Lipitor -) 10 mg PO DAILY [facility] Last Admin: 07/03/16 09:13 Dose: 10 mg Clonazepam (Klonopin -) 1 mg PO BID [facility] Last Admin: 07/03/16 21:31 Dose: 1 mg Collagenase (Santyl -) 1 applic TP DAILY [facility] Last Admin: 07/03/16 22:28 Dose: 1 applic Docusate Sodium (Colace -) 300 mg PO HS [facility] Last Admin: 07/03/16 21:32 Dose: 300 mg Heparin Sodium (Porcine) (Heparin -) 5,000 unit SQ BID [facility] Last Admin: 07/03/16 21:32 Dose: 5,000 unit Insulin Aspart (Novolog Vial) 12 units SQ TIDAC [facility] Last Admin: 07/04/16 06:28 Dose: Not Given Lactobacillus Acidophilus (Bacid -) 1 tab PO BID [facility] Last Admin: 07/03/16 21:31 Dose: 1 tab Multivitamins/Minerals/Vitamin C (Tab-A-Vit -) 1 tab PO DAILY [facility] Last Admin: 07/03/16 09:13 Dose: 1 tab Nifedipine (Procardia Capsule -) 10 mg PO BID [facility] Pantoprazole Sodium (Protonix -) 40 mg PO DAILY [facility] Last Admin: 07/03/16 09:13 Dose: 40 mg Polyethylene Glycol (Miralax (For Daily Use) -) 17 gm PO PRN [facility] Quetiapine Fumarate (Seroquel -) 200 mg PO HS [facility] Last Admin: 07/03/16 21:31 Dose: 200 mg Senna (Senna -) 2 tab PO DAILY [facility] Last Admin: 07/03/16 09:13 Dose: 2 tab Silver Sulfadiazine (Silvadene -) 1 applic TP BID [facility] Last Admin: 07/03/16 22:29 Dose: 1 applic - Objective Vital Signs: Vital Signs Temperature 97.4 F L 07/04/16 08:49 Pulse Rate 52 L 07/04/16 08:49 Respiratory Rate 18 07/04/16 08:49 Blood Pressure 121/61 07/04/16 09:08 O2 Sat by Pulse Oximetry (%) 96 07/03/16 21:00 Constitutional: Yes: Calm, Obese Eyes: Yes: WNL HENT: Yes: WNL Neck: Yes: WNL Cardiovascular: Yes: Regular Rate and Rhythm Respiratory: Yes: Regular Gastrointestinal: Yes: Soft, Abdomen, Obese ...Rectal Exam: Yes: Deferred Genitourinary: No: Anuria Breast(s): Yes: WNL Musculoskeletal: Yes: Other Extremities: Yes: Cool Peripheral Pulses WNL: Yes Peripheral Pulses: Right Dorsalis Pedis: 1+ Integumentary: Yes: Other Wound/Incision: Yes: Dressing Dry and Intact (left heel) Neurological: Yes: Alert, Oriented, Unsteady Gait, Weakness Psychiatric: Yes: Alert, Oriented Labs: CBC, BMP 07/03/16 06:30 07/04/16 06:45 INR, PTT INR 1.16 (0.82-1.09) H 07/02/16 12:40 Abnormal Lab Results 07/04/16 06:45 BUN 26 H Random Glucose 182 H D Albumin 3.0 L - ....Imaging Ultrasound: Report Reviewed (ECHO: normal LVEF; mild TR; trace MR; borderline LVH.) Problem List - Problems (1) Chronic osteomyelitis involving lower leg Assessment/Plan: as noted by Dr. Wagner, vascular surgeon, pt may have trial of hyperbaric therapy and apligraft skin graft; if this is unsuccessful, will require BKA of LLE. Code(s): M86.669 - OTHER CHRONIC OSTEOMYELITIS, UNSPECIFIED TIBIA AND FIBULA (2) Diabetes Code(s): E11.9 - TYPE 2 DIABETES MELLITUS WITHOUT COMPLICATIONS (3) HLD (hyperlipidemia) Assessment/Plan: on statin; total cholesterol 110 mg/dL , with LDL cholesterol 70 mg/dL on 02/11. Code(s): E78.5 - HYPERLIPIDEMIA, UNSPECIFIED (4) HTN (hypertension) Assessment/Plan: Change nifedipine to lisinopril (HTN; DM); f/u serial BP; BUN/Cr and electrolytes. Code(s): I10 - ESSENTIAL (PRIMARY) HYPERTENSION (5) Morbid obesity Assessment/Plan: diet modification, portion control. (Pt has done almost no exercise for years; blames it on neuropathy that started years before being diagnosed with DM, and espeically from LE issues he has been having). Code(s): E66.01 - MORBID (SEVERE) OBESITY DUE TO EXCESS CALORIES (6) Terry cardiac risk >20% in next 10 years Assessment/Plan: On statin. Started lisinopril. ECHO: normal LVEF; borderline LVH. Stress MIBI results pending. Code(s): Z91.89 - OTH PERSONAL RISK FACTORS, NOT ELSEWHERE CLASSIFIED
[2016-07-04] MEDS: PANTOPRAZOLE 40 MG TABLET (FP) PO SCH (12:29)
[2016-07-04] MEDS: clonazePAM 0.5 MG TABLET PO SCH ×2 (12:29→21:34)
[2016-07-04] MEDS: HEPARIN NA (PORCINE) 5,000 UNITS/ML 1ML VIAL SQ SCH ×2 (12:29→21:34)
[2016-07-04] MEDS: MULTIVITAMINS (DAILY MVI) TABLET (FP) PO SCH (12:29)
[2016-07-04] MEDS: LACTOBACILLUS ACIDOPHILUS 1 EACH TAB (FP) PO SCH ×2 (12:29→21:32)
[2016-07-04] MEDS: ATORVASTATIN CA 10 MG TABLET (FP) PO SCH (12:29)
[2016-07-04] MEDS: SENNOSIDES 8.6MG TABLET (FP) PO SCH (12:30)
[2016-07-04] MEDS: SILVER SULFADIAZINE 1% TOP CREAM 50 GM JAR TP SCH ×2 (15:19→21:34)
[2016-07-04] MEDS: COLLAGENASE CLOSTRIDIUM HIST. 30 GRAMS TUBE TP SCH (15:21)
--- NOTE | 2016-07-04 15:28 | PN ---
Progress Note, Physician History of Present Illness: No c/o heel pain No fever/ chills Off antibiotics- BKA planned per pt - Current Medication List Current Medications: Active Medications Acetaminophen (Tylenol -) 650 mg PO PRN [facility] Amino Acids (Prostat Sugar-Free Packet -) 30 ml PO TID [facility] Last Admin: 07/04/16 15:21 Dose: Not Given Atorvastatin Calcium (Lipitor -) 10 mg PO DAILY [facility] Last Admin: 07/04/16 12:29 Dose: 10 mg Clonazepam (Klonopin -) 1 mg PO BID [facility] Last Admin: 07/04/16 12:29 Dose: 1 mg Collagenase (Santyl -) 1 applic TP DAILY [facility] Last Admin: 07/04/16 15:21 Dose: 1 applic Docusate Sodium (Colace -) 300 mg PO HS [facility] Last Admin: 07/03/16 21:32 Dose: 300 mg Heparin Sodium (Porcine) (Heparin -) 5,000 unit SQ BID [facility] Last Admin: 07/04/16 12:29 Dose: 5,000 unit Insulin Aspart (Novolog Vial) 12 units SQ TIDAC [facility] Last Admin: 07/04/16 12:30 Dose: 12 units Lactobacillus Acidophilus (Bacid -) 1 tab PO BID [facility] Last Admin: 07/04/16 12:29 Dose: 1 tab Lisinopril (Prinivil) 5 mg PO DAILY [facility] Multivitamins/Minerals/Vitamin C (Tab-A-Vit -) 1 tab PO DAILY [facility] Last Admin: 07/04/16 12:29 Dose: 1 tab Pantoprazole Sodium (Protonix -) 40 mg PO DAILY [facility] Last Admin: 07/04/16 12:29 Dose: 40 mg Polyethylene Glycol (Miralax (For Daily Use) -) 17 gm PO PRN [facility] Quetiapine Fumarate (Seroquel -) 200 mg PO HS [facility] Last Admin: 07/03/16 21:31 Dose: 200 mg Senna (Senna -) 2 tab PO DAILY [facility] Last Admin: 07/04/16 12:30 Dose: Not Given Silver Sulfadiazine (Silvadene -) 1 applic TP BID [facility] Last Admin: 07/04/16 15:19 Dose: 1 applic - Objective Vital Signs: Vital Signs Temperature 97.5 F L 07/04/16 14:16 Pulse Rate 54 L 07/04/16 14:16 Respiratory Rate 18 07/04/16 09:00 Blood Pressure 123/63 07/04/16 14:16 O2 Sat by Pulse Oximetry (%) 96 07/04/16 09:00 Constitutional: Yes: No Distress, Obese Cardiovascular: Yes: Regular Rate and Rhythm, S1, S2 Respiratory: Yes: CTA Bilaterally Gastrointestinal: Yes: Normal Bowel Sounds, Soft. No: Tenderness Extremities: Yes: Other (L heel ulcer with granulation tissue; no purulent drainage) Labs: CBC, BMP 07/03/16 06:30 07/04/16 06:45 INR, PTT INR 1.16 (0.82-1.09) H 07/02/16 12:40 Assessment/Plan Infected non-healing L heel ulcer Chronic osteomyelitis L heel Bacteroides bacteremia by hx IDDM Off antibiotics BKA planned per pt Local wound care Surgical follow up
[2016-07-04] MEDS: LISINOPRIL 5 MG TABLET (FP) PO SCH (15:52)
[2016-07-04] MEDS: DOCUSATE SODIUM 100 MG CAPSULE (FP) PO SCH (21:32)
[2016-07-04] MEDS: QUEtiapine FUMARATE 200 MG TABLET PO SCH (21:34)
--- NOTE | 2016-07-04 23:15 | PN ---
Progress Note, Physician History of Present Illness: No new change - Current Medication List Current Medications: Active Medications Acetaminophen (Tylenol -) 650 mg PO PRN [facility] Amino Acids (Prostat Sugar-Free Packet -) 30 ml PO TID [facility] Last Admin: 07/04/16 21:34 Dose: Not Given Atorvastatin Calcium (Lipitor -) 10 mg PO DAILY [facility] Last Admin: 07/04/16 12:29 Dose: 10 mg Clonazepam (Klonopin -) 1 mg PO BID [facility] Last Admin: 07/04/16 21:34 Dose: 1 mg Collagenase (Santyl -) 1 applic TP DAILY [facility] Last Admin: 07/04/16 15:21 Dose: 1 applic Docusate Sodium (Colace -) 300 mg PO HS [facility] Last Admin: 07/04/16 21:32 Dose: 300 mg Heparin Sodium (Porcine) (Heparin -) 5,000 unit SQ BID [facility] Last Admin: 07/04/16 21:34 Dose: 5,000 unit Insulin Aspart (Novolog Vial) 12 units SQ TIDAC [facility] Last Admin: 07/04/16 17:01 Dose: 12 units Lactobacillus Acidophilus (Bacid -) 1 tab PO BID [facility] Last Admin: 07/04/16 21:32 Dose: 1 tab Lisinopril (Prinivil) 5 mg PO DAILY [facility] Last Admin: 07/04/16 15:52 Dose: 5 mg Multivitamins/Minerals/Vitamin C (Tab-A-Vit -) 1 tab PO DAILY [facility] Last Admin: 07/04/16 12:29 Dose: 1 tab Pantoprazole Sodium (Protonix -) 40 mg PO DAILY [facility] Last Admin: 07/04/16 12:29 Dose: 40 mg Polyethylene Glycol (Miralax (For Daily Use) -) 17 gm PO PRN [facility] Quetiapine Fumarate (Seroquel -) 200 mg PO HS [facility] Last Admin: 07/04/16 21:34 Dose: 200 mg Senna (Senna -) 2 tab PO DAILY [facility] Last Admin: 07/04/16 12:30 Dose: Not Given Silver Sulfadiazine (Silvadene -) 1 applic TP BID [facility] Last Admin: 07/04/16 21:34 Dose: Not Given - Objective Vital Signs: Vital Signs Temperature 97.7 F 07/04/16 19:37 Pulse Rate 48 L 07/04/16 19:37 Respiratory Rate 21 07/04/16 19:37 Blood Pressure 128/63 07/04/16 19:37 O2 Sat by Pulse Oximetry (%) 96 07/04/16 09:00 Neck: Yes: Supple Cardiovascular: Yes: WNL, Regular Rate and Rhythm Respiratory: Yes: WNL, Regular, CTA Bilaterally Gastrointestinal: Yes: WNL, Normal Bowel Sounds, Soft Labs: CBC, BMP 07/03/16 06:30 07/04/16 06:45 INR, PTT INR 1.16 (0.82-1.09) H 07/02/16 12:40 Problem List - Problems (1) Chronic osteomyelitis involving lower leg Assessment/Plan: ID/surgical consults appreciated Vascular recommendations probably apligraf/HBO first and if treatment failure than amputation However will need approval by insurance Code(s): M86.669 - OTHER CHRONIC OSTEOMYELITIS, UNSPECIFIED TIBIA AND FIBULA (2) 1St deg burn finger Assessment/Plan: Cont silvadene/dressing/wound care Code(s): T23.129A - BURN FIRST DEGREE OF UNSP SINGLE FINGER EXCEPT THUMB, INIT (3) Diabetic ulcer of ankle associated with type 1 diabetes mellitus Code(s): E10.622 - TYPE 1 DIABETES MELLITUS WITH OTHER SKIN ULCER L97.309 - NON-PRESSURE CHRONIC ULCER OF UNSP ANKLE WITH UNSP SEVERITY (4) HTN (hypertension) Code(s): I10 - ESSENTIAL (PRIMARY) HYPERTENSION (5) Diabetes Code(s): E11.9 - TYPE 2 DIABETES MELLITUS WITHOUT COMPLICATIONS (6) HLD (hyperlipidemia) Code(s): E78.5 - HYPERLIPIDEMIA, UNSPECIFIED (7) Morbid obesity Code(s): E66.01 - MORBID (SEVERE) OBESITY DUE TO EXCESS CALORIES
[2016-07-05] MEDS: AMINO ACIDS/PROTEIN HYDROLYS SUGAR-FREE 30 ML PACKET PO SCH ×3 (06:03→21:14)
[2016-07-05] MEDS: INSULIN (NOVOLOG) ASPART 100 UNITS/ML 10ML VIAL SQ SCH ×3 (06:22→17:08)
[2016-07-05] MEDS: LACTOBACILLUS ACIDOPHILUS 1 EACH TAB (FP) PO SCH ×2 (09:44→21:12)
[2016-07-05] MEDS: clonazePAM 0.5 MG TABLET PO SCH ×2 (09:44→21:10)
[2016-07-05] MEDS: PANTOPRAZOLE 40 MG TABLET (FP) PO SCH (09:44)
[2016-07-05] MEDS: MULTIVITAMINS (DAILY MVI) TABLET (FP) PO SCH (09:44)
[2016-07-05] MEDS: ATORVASTATIN CA 10 MG TABLET (FP) PO SCH (09:44)
[2016-07-05] MEDS: SENNOSIDES 8.6MG TABLET (FP) PO SCH (09:45)
[2016-07-05] MEDS: LISINOPRIL 5 MG TABLET (FP) PO SCH (09:45)
[2016-07-05] MEDS: HEPARIN NA (PORCINE) 5,000 UNITS/ML 1ML VIAL SQ SCH ×2 (10:48→21:40)
[2016-07-05] MEDS: COLLAGENASE CLOSTRIDIUM HIST. 30 GRAMS TUBE TP SCH (11:02)
[2016-07-05] MEDS: SILVER SULFADIAZINE 1% TOP CREAM 50 GM JAR TP SCH ×2 (11:02→21:13)
--- NOTE | 2016-07-05 13:07 | PN ---
Progress Note, Physician History of Present Illness: 66yo male with PMHx Diabetes, peripheral neuropathy, chronic left heel dm ulcer x3 yrs, hyperlipidemia. Admitted to [facility] with chronic left heel (diabteic ulcer) . Patient states he's had this ulcer for 3 years and still hasn't been able to close. He informs me that he has had multiple PICC lines to treat the associated calcaneal osteomyelitis. He tried wound VAC therapy without success. ID note appreciated. Patient states he's had a converation with Dr. Wagner regarding LLE BKA and wishes to proceed if it's deemed the most prudent. A elizabeth cath was placed in Er as he was in retention. He ambulates with a walker. - Current Medication List Current Medications: Active Medications Acetaminophen (Tylenol -) 650 mg PO PRN [facility] Amino Acids (Prostat Sugar-Free Packet -) 30 ml PO TID [facility] Last Admin: 07/05/16 06:03 Dose: Not Given Atorvastatin Calcium (Lipitor -) 10 mg PO DAILY [facility] Last Admin: 07/05/16 09:44 Dose: 10 mg Clonazepam (Klonopin -) 1 mg PO BID [facility] Last Admin: 07/05/16 09:44 Dose: Not Given Collagenase (Santyl -) 1 applic TP DAILY [facility] Last Admin: 07/05/16 11:02 Dose: 1 applic Docusate Sodium (Colace -) 300 mg PO HS [facility] Last Admin: 07/04/16 21:32 Dose: 300 mg Heparin Sodium (Porcine) (Heparin -) 5,000 unit SQ BID [facility] Last Admin: 07/05/16 10:48 Dose: 5,000 unit Insulin Aspart (Novolog Vial) 12 units SQ TIDAC [facility] Last Admin: 07/05/16 11:00 Dose: 12 units Lactobacillus Acidophilus (Bacid -) 1 tab PO BID [facility] Last Admin: 07/05/16 09:44 Dose: 1 tab Lisinopril (Prinivil) 5 mg PO DAILY [facility] [place] Last Admin: 07/05/16 09:45 Dose: Not Given Multivitamins/Minerals/Vitamin C (Tab-A-Vit -) 1 tab PO DAILY [facility] Last Admin: 07/05/16 09:44 Dose: 1 tab Pantoprazole Sodium (Protonix -) 40 mg PO DAILY [facility] [place] Last Admin: 07/05/16 09:44 Dose: 40 mg Polyethylene Glycol (Miralax (For Daily Use) -) 17 gm PO PRN [facility] [place] Quetiapine Fumarate (Seroquel -) 200 mg PO HS [facility] [place] Last Admin: 07/04/16 21:34 Dose: 200 mg Senna (Senna -) 2 tab PO DAILY [facility] [place] Last Admin: 07/05/16 09:45 Dose: Not Given Silver Sulfadiazine (Silvadene -) 1 applic TP BID [facility] Last Admin: 07/05/16 11:02 Dose: 1 applic - Objective Vital Signs: Vital Signs Temperature 97.6 F 07/05/16 13:03 Pulse Rate 64 07/05/16 13:03 Respiratory Rate 18 07/05/16 13:03 Blood Pressure 113/48 07/05/16 13:03 O2 Sat by Pulse Oximetry (%) 98 07/05/16 09:00 Eyes: Yes: WNL, Conjunctiva Clear, EOM Intact HENT: Yes: WNL, Atraumatic, Normocephalic Neck: Yes: WNL, Supple, Trachea Midline Cardiovascular: Yes: WNL, Regular Rate and Rhythm Respiratory: Yes: WNL, Regular, CTA Bilaterally Gastrointestinal: Yes: WNL, Normal Bowel Sounds Genitourinary: Yes: WNL Musculoskeletal: Yes: WNL Extremities: Yes: WNL Edema: No Edema: RLE: 2+ Integumentary: Yes: WNL Neurological: Yes: WNL, Alert, Oriented ...Motor Strength: WNL Psychiatric: Yes: WNL Labs: CBC, BMP 07/03/16 06:30 07/04/16 06:45 INR, PTT INR 1.16 (0.82-1.09) H 07/02/16 12:40 Problem List - Problems (1) Chronic osteomyelitis involving lower leg Code(s): M86.669 - OTHER CHRONIC OSTEOMYELITIS, UNSPECIFIED TIBIA AND FIBULA (2) Diabetic ulcer of ankle associated with type 1 diabetes mellitus Code(s): E10.622 - TYPE 1 DIABETES MELLITUS WITH OTHER SKIN ULCER L97.309 - NON-PRESSURE CHRONIC ULCER OF UNSP ANKLE WITH UNSP SEVERITY (3) Closed head injury Code(s): S09.90XA - UNSPECIFIED INJURY OF HEAD, INITIAL ENCOUNTER (4) Osteomyelitis Code(s): M86.9 - OSTEOMYELITIS, UNSPECIFIED Qualifiers: Osteomyelitis location: foot Laterality: left Chronicity: chronic Qualified Code(s): M86.672 - Other chronic osteomyelitis, left ankle and foot (5) Pseudomonas aeruginosa infection Code(s): A49.8 - OTHER BACTERIAL INFECTIONS OF UNSPECIFIED SITE Assessment/Plan (1) Chronic osteomyelitis involving lower leg Assessment/Plan: as noted by Dr. Wagner, vascular surgeon, pt may have trial of hyperbaric therapy and apligraft skin graft; if this is unsuccessful, will require BKA of LLE. Code(s): M86.669 - OTHER CHRONIC OSTEOMYELITIS, UNSPECIFIED TIBIA AND FIBULA (2) Diabetes Code(s): E11.9 - TYPE 2 DIABETES MELLITUS WITHOUT COMPLICATIONS (3) HLD (hyperlipidemia) Assessment/Plan: on statin; total cholesterol 110 mg/dL , with LDL cholesterol 70 mg/dL on 02/11. Code(s): E78.5 - HYPERLIPIDEMIA, UNSPECIFIED (4) HTN (hypertension) Assessment/Plan: Change nifedipine to lisinopril (HTN; DM); f/u serial BP; BUN/Cr and electrolytes. Code(s): I10 - ESSENTIAL (PRIMARY) HYPERTENSION (5) Morbid obesity Assessment/Plan: diet modification, portion control. (Pt has done almost no exercise for years; blames it on neuropathy that started years before being diagnosed with DM, and espeically from LE issues he has been having). Code(s): E66.01 - MORBID (SEVERE) OBESITY DUE TO EXCESS CALORIES (6) [place] cardiac risk >20% in next 10 years Assessment/Plan: On statin. Started lisinopril. ECHO: normal LVEF; borderline LVH. MIBI stress test mild inferior wall ischemia Patient is moderate risks for BKA and cleared for the procedure. Coronary evaluation/c cath after BKA when infection resolves.
--- NOTE | 2016-07-05 17:23 | SPA.PREOP ---
- PRE-OP NOTE Dx: Chronic calcaneal osteomylitis (Left heel) Planned Procedure: Left BKA Surgeon: Bryant Wagner Consent: To be obtained surgeon after he explains all risks, benefits and alternatives. Last Vital Signs Temp Pulse Resp BP Pulse Ox 97.6 F 64 18 113/48 98 07/05/16 13:03 07/05/16 13:03 07/05/16 13:03 07/05/16 13:03 07/05/16 09:00 Lab Results WBC 5.7 K/mm3 (4.0-10.0) 07/03/16 06:30 RBC 4.34 M/mm3 (4.00-5.60) 07/03/16 06:30 Hgb 11.3 GM/dL (11.7-16.9) L 07/03/16 06:30 Hct 35.2 % (35.4-49) L 07/03/16 06:30 MCV 81.0 fl (80-96) 07/03/16 06:30 MCHC 32.0 g/dl (32.0-35.9) 07/03/16 06:30 RDW 17.4 % (11.9-15.9) H 07/03/16 06:30 Plt Count 180 K/MM3 (134-434) 07/03/16 06:30 Sodium 138 mmol/L (136-145) 07/04/16 06:45 Potassium 4.5 mmol/L (3.5-5.1) 07/04/16 06:45 Chloride 100 mmol/L (98-107) 07/04/16 06:45 Carbon Dioxide 30 mmol/L (21-32) 07/04/16 06:45 Anion Gap 8 (8-16) 07/04/16 06:45 BUN 26 mg/dL (7-18) H 07/04/16 06:45 Creatinine 1.2 mg/dL (0.7-1.3) 07/04/16 06:45 Random Glucose 182 mg/dL (74-106) H D 07/04/16 06:45 Calcium 9.1 mg/dL (8.5-10.1) 07/04/16 06:45 Blood Type A POSITIVE 07/02/16 12:55 Antibody Screen Negative 07/02/16 12:40 INR 1.16 (0.82-1.09) H 07/02/16 12:40 - ASSESSMENT/PLAN 1. Make NPO after midnight except po meds 2. GI/DVT PPX 3. Medical optimization / clearance Problem List - Problems (1) Chronic osteomyelitis involving lower leg Assessment/Plan: 1. NPO after midnight except po meds 2. gi/dvt ppx 3. medical optimization/clearance Code(s): M86.669 - OTHER CHRONIC OSTEOMYELITIS, UNSPECIFIED TIBIA AND FIBULA Visit type - Case Type Case Type: ED Admission - New patient This patient is new to me today: No
--- NOTE | 2016-07-05 18:52 | CON.PSY ---
Psychiatry Consult Chief Complaint: Asked to see this patient, a 66 year old male who is scheduled for a BKA in the am History of Present Problem: Patient reports that he is tired of going to clinics, hospitals and different MD and they all same the same thing i.e he should amputate. He verbalizes that his quality of life has deteriorated and he now has concrete plans now to sell his home and travel after he gets better post surgery He is able to speak Khmer and he expressed an understanding of the surgery and that he is looking forward to a prosthesis in the near future Patient responses at one time was delayed but he is awake, alert and fully oriented Symptoms: reports: Other (Neutral mood appropriate affect) - Reason for Previous Treatment Reason for Previous Treatment: Other - Current Medications Current Medications: Active Medications Acetaminophen (Tylenol -) 650 mg PO PRN [facility] Amino Acids (Prostat Sugar-Free Packet -) 30 ml PO TID [facility] Last Admin: 07/05/16 14:14 Dose: Not Given Atorvastatin Calcium (Lipitor -) 10 mg PO DAILY [facility] Last Admin: 07/05/16 09:44 Dose: 10 mg Clonazepam (Klonopin -) 1 mg PO BID [facility] Last Admin: 07/05/16 09:44 Dose: Not Given Collagenase (Santyl -) 1 applic TP DAILY [facility] Last Admin: 07/05/16 11:02 Dose: 1 applic Docusate Sodium (Colace -) 300 mg PO HS [facility] Last Admin: 07/04/16 21:32 Dose: 300 mg Heparin Sodium (Porcine) (Heparin -) 5,000 unit SQ BID [facility] Last Admin: 07/05/16 10:48 Dose: 5,000 unit Insulin Aspart (Novolog Vial) 12 units SQ TIDAC [facility] Last Admin: 07/05/16 17:08 Dose: 12 units Lactobacillus Acidophilus (Bacid -) 1 tab PO BID [facility] Last Admin: 07/05/16 09:44 Dose: 1 tab Lisinopril (Prinivil) 5 mg PO DAILY [facility] Last Admin: 07/05/16 09:45 Dose: Not Given Multivitamins/Minerals/Vitamin C (Tab-A-Vit -) 1 tab PO DAILY [facility] Last Admin: 07/05/16 09:44 Dose: 1 tab Pantoprazole Sodium (Protonix -) 40 mg PO DAILY [facility] Last Admin: 07/05/16 09:44 Dose: 40 mg Polyethylene Glycol (Miralax (For Daily Use) -) 17 gm PO PRN [facility] Quetiapine Fumarate (Seroquel -) 200 mg PO HS [facility] Last Admin: 07/04/16 21:34 Dose: 200 mg Senna (Senna -) 2 tab PO DAILY [facility] Last Admin: 07/05/16 09:45 Dose: Not Given Silver Sulfadiazine (Silvadene -) 1 applic TP BID [facility] Last Admin: 07/05/16 11:02 Dose: 1 applic - Allergies Allergies: Allergies Allergy/AdvReac Type Severity Reaction Status Date / Time No Known Allergies Allergy Unverified 02/04/16 16:49 - Current Living Status Usual Living Arrangement: With Significant Other (clean and tidy in appearance) - Current Mental Status Evaluation Attitude: Cooperative - Affect Affect: Constrictive - Mood Mood: Other (neutral mood) - Speech/Language Expressive: Coherent Receptive: Age Appropriate Comprehension of Spoken Words - Psychomotor Activity Psychomotor Activity: Normal - Thought Process Thought Process: Intact - Thought Content Hallucinations: Absent Delusions: Absent - Self Perception Self Perception: No Impairment - Cognition Attention: Alert Orientation: Time, Person, Place Memory, Short Term: 2/3 - Abstraction Proverb Interpretation: Intact Judgement: Intact - Insight Insight: Intact - Suicidal Ideation Suicidal Ideation: No - Homicidal Ideation Homicidal Ideation: No Assessment/Plan Patient has the capacity to make his own decisions with regard to his health care and surgery pending in am He expressed relief that he has finally made the decision to amputate
--- NOTE | 2016-07-05 19:30 | PN ---
Progress Note (short form) - Note Progress Note: Vascular Surgery Psychiatry note appreciated. Will do amputation tomorrow. Pt has capacity to sign his own consent. NPO past midnight. Bryant Wagner DO
--- NOTE | 2016-07-05 20:00 | HOSP ---
Physical Examination Vital Signs: Vital Signs Temperature 97.6 F 07/05/16 13:03 Pulse Rate 64 07/05/16 13:03 Respiratory Rate 18 07/05/16 13:03 Blood Pressure 113/48 07/05/16 13:03 O2 Sat by Pulse Oximetry (%) 98 07/05/16 09:00 Labs: CBC, BMP 07/03/16 06:30 07/04/16 06:45 Hospitalist Encounter Assessment: HOSPITALIST ENCOUNTER on 07/01/2016. Was paged by the nurse to inform that patient burned the top of the hand while having a cup of tea. Immediately went to examine the patient. A/c to the patient , he has a h/o peripheral neuropathy (more than 15 years). Usually pours 1/2 a glass at a time since he is unable to hold a full glass of liquid. But unfortunately, he forgot and tried to picker tender the full cup of tea, squeezed the cup and burned the top the the upper right thumb. On Examination Vitals:BP- 100/57 mmHg P- 82bpm RR-20 Temp-97.7 General: Patient sitting on bed, awake, alert, oriented x 3, in no respiratory distress HEAD: Normal with no signs of trauma. EYES: PERRL, sclera anicteric, conjunctiva clear. NECK: Normal ROM, supple without lymphadenopathy, JVD, or masses. LUNGS: B/L lungs clear, no wheeze or added sounds HEART: regular rate and rhythm, S1, S2 ABDOMEN: Obese. Soft, nt. nd. MUSCULOSKELETAL: Erythema over the right dorsal area,no blisters, tender to touch, normal range of motion at all joints. No bony deformities or tenderness. No CVA tenderness. A/P Superficial Burn Apply cold compression on the involved area. Please call if pain is severe. Plan of care explained to the patient. He verbalized understanding. Case discussed with Dr. Tse. Visit type - Emergency Visit Emergency Visit: Yes ED Registration Date: 06/30/16 Care time: The patient presented to the Emergency Department on the above date and was hospitalized for further evaluation of their emergent condition. - New Patient This patient is new to me today: Yes Date on this admission: 07/01/16 - Critical Care Critical Care patient: No
[2016-07-05] MEDS ORDERED: PT OWN MED DRAWER 7, Y5N ONE (21:09)
[2016-07-05] MEDS: DOCUSATE SODIUM 100 MG CAPSULE (FP) PO SCH (21:10)
[2016-07-05] MEDS: QUEtiapine FUMARATE 200 MG TABLET PO SCH (21:12)
--- NOTE | 2016-07-05 23:59 | PN ---
Progress Note, Physician History of Present Illness: No new change - Current Medication List Current Medications: Active Medications Acetaminophen (Tylenol -) 650 mg PO PRN [facility] Amino Acids (Prostat Sugar-Free Packet -) 30 ml PO TID [facility] Last Admin: 07/05/16 21:14 Dose: Not Given Atorvastatin Calcium (Lipitor -) 10 mg PO DAILY [facility] Last Admin: 07/05/16 09:44 Dose: 10 mg Clonazepam (Klonopin -) 1 mg PO BID [facility] Last Admin: 07/05/16 21:10 Dose: 1 mg Collagenase (Santyl -) 1 applic TP DAILY [facility] Last Admin: 07/05/16 11:02 Dose: 1 applic Docusate Sodium (Colace -) 300 mg PO HS [facility] Last Admin: 07/05/16 21:10 Dose: 300 mg Heparin Sodium (Porcine) (Heparin -) 5,000 unit SQ BID [facility] Last Admin: 07/05/16 21:40 Dose: 5,000 unit Insulin Aspart (Novolog Vial) 12 units SQ TIDAC [facility] Last Admin: 07/05/16 17:08 Dose: 12 units Lactobacillus Acidophilus (Bacid -) 1 tab PO BID [facility] Last Admin: 07/05/16 21:12 Dose: 1 tab Lisinopril (Prinivil) 5 mg PO DAILY [facility] Last Admin: 07/05/16 09:45 Dose: Not Given Multivitamins/Minerals/Vitamin C (Tab-A-Vit -) 1 tab PO DAILY [facility] Last Admin: 07/05/16 09:44 Dose: 1 tab Pantoprazole Sodium (Protonix -) 40 mg PO DAILY [facility] Last Admin: 07/05/16 09:44 Dose: 40 mg Polyethylene Glycol (Miralax (For Daily Use) -) 17 gm PO PRN [facility] Quetiapine Fumarate (Seroquel -) 200 mg PO HS [facility] Last Admin: 07/05/16 21:12 Dose: 200 mg Senna (Senna -) 2 tab PO DAILY [facility] Last Admin: 07/05/16 09:45 Dose: Not Given Silver Sulfadiazine (Silvadene -) 1 applic TP BID [facility] Last Admin: 07/05/16 21:13 Dose: 1 applic - Objective Vital Signs: Vital Signs Temperature 97.3 F L 07/05/16 22:46 Pulse Rate 53 L 07/05/16 22:46 Respiratory Rate 21 07/05/16 22:46 Blood Pressure 130/75 07/05/16 22:46 O2 Sat by Pulse Oximetry (%) 98 07/05/16 20:32 Constitutional: Yes: Obese Neck: Yes: Supple Cardiovascular: Yes: WNL, Regular Rate and Rhythm Respiratory: Yes: WNL, Regular, CTA Bilaterally Gastrointestinal: Yes: WNL, Normal Bowel Sounds, Soft, Abdomen, Obese Extremities: Yes: Other ((+) lt heel ulcer) Labs: CBC, BMP 07/03/16 06:30 07/04/16 06:45 INR, PTT INR 1.16 (0.82-1.09) H 07/02/16 12:40 Problem List - Problems (1) Chronic osteomyelitis involving lower leg Assessment/Plan: At this point will need to determine if pt to have amputation? Pt is off antibxs Cont wound care As per vascular surgery Code(s): M86.669 - OTHER CHRONIC OSTEOMYELITIS, UNSPECIFIED TIBIA AND FIBULA (2) 1St deg burn finger Assessment/Plan: Cont silvadene/dressing/wound care Code(s): T23.129A - BURN FIRST DEGREE OF UNSP SINGLE FINGER EXCEPT THUMB, INIT (3) Diabetic ulcer of ankle associated with type 1 diabetes mellitus Code(s): E10.622 - TYPE 1 DIABETES MELLITUS WITH OTHER SKIN ULCER L97.309 - NON-PRESSURE CHRONIC ULCER OF UNSP ANKLE WITH UNSP SEVERITY (4) HTN (hypertension) Assessment/Plan: Cont procardia Code(s): I10 - ESSENTIAL (PRIMARY) HYPERTENSION (5) Diabetes Assessment/Plan: Cont humalog Cont sliding scale Code(s): E11.9 - TYPE 2 DIABETES MELLITUS WITHOUT COMPLICATIONS (6) HLD (hyperlipidemia) Assessment/Plan: Cont lipitor Code(s): E78.5 - HYPERLIPIDEMIA, UNSPECIFIED (7) Morbid obesity Code(s): E66.01 - MORBID (SEVERE) OBESITY DUE TO EXCESS CALORIES
[2016-07-06] MEDS: INSULIN (NOVOLOG) ASPART 100 UNITS/ML 10ML VIAL SQ SCH ×4 (06:21→17:39)
[2016-07-06] MEDS: AMINO ACIDS/PROTEIN HYDROLYS SUGAR-FREE 30 ML PACKET PO SCH ×4 (06:21→17:39)
[2016-07-06] MEDS: clonazePAM 0.5 MG TABLET PO SCH ×2 (09:09→21:33)
[2016-07-06] MEDS: HEPARIN NA (PORCINE) 5,000 UNITS/ML 1ML VIAL SQ SCH ×2 (09:09→21:34)
[2016-07-06] MEDS: ATORVASTATIN CA 10 MG TABLET (FP) PO SCH (09:09)
[2016-07-06] MEDS: LACTOBACILLUS ACIDOPHILUS 1 EACH TAB (FP) PO SCH ×2 (09:09→21:33)
[2016-07-06] MEDS: SENNOSIDES 8.6MG TABLET (FP) PO SCH (09:10)
[2016-07-06] MEDS: MULTIVITAMINS (DAILY MVI) TABLET (FP) PO SCH (09:10)
[2016-07-06] MEDS: LISINOPRIL 5 MG TABLET (FP) PO SCH (09:10)
[2016-07-06] MEDS: PANTOPRAZOLE 40 MG TABLET (FP) PO SCH (09:10)
[2016-07-06] MEDS ORDERED: ceFAZolin SODIUM 1 GM VIAL IVPB ONE ×2 (11:15)
[2016-07-06] MEDS: COLLAGENASE CLOSTRIDIUM HIST. 30 GRAMS TUBE TP SCH (11:24)
[2016-07-06] MEDS: SILVER SULFADIAZINE 1% TOP CREAM 50 GM JAR TP SCH ×2 (11:25→21:38)
--- NOTE | 2016-07-06 13:58 | OP ---
Operative Note - Note: Operative Date: 07/06/16 Pre-Operative Diagnosis: Left foot chronic osteomyelitis/diabetic foot ulcer Operation: Left below knee amputation Post-Operative Diagnosis: Same as Pre-op Surgeon: Bryant Wagner Anesthesia: General Estimated Blood Loss (mls): 600 Blood Volume Replaced (mls): 250 Operative Report Dictated: Yes
[2016-07-06] MEDS: HYDROmorphone HCL CARPU-JECT 2 MG/1 ML DISP.SYRIN IVPUSH PRN ×3 (14:00→14:30)
[2016-07-06] MEDS ORDERED: HYDROmorphone HCL CARPU-JECT 2 MG/1 ML DISP.SYRIN ONE ×2 (14:00→14:11)
[2016-07-06] MEDS ORDERED: HYDROmorphone HCL CARPU-JECT 2 MG/1 ML DISP.SYRIN IVPB PRN (14:02)
[2016-07-06] MEDS ORDERED: LORAZEPAM CARPU-JECT 2 MG/ML DISP.SYRIN ONE (14:06)
[2016-07-06] MEDS ORDERED: POLYETHYLENE GLYCOL 3350 119 GM BTL PO SCH (14:10)
[2016-07-06] MEDS ORDERED: LORAZEPAM CARPU-JECT 2 MG/ML DISP.SYRIN IVPUSH ONE (14:15)
--- NOTE | 2016-07-06 14:31 | PN ---
Progress Note, Physician Chief Complaint: Pt s/p left BKA today. History of Present Illness: Pt is a 66 y/o morbidly obese white male who was transferred from [facility] where he jis being treated fro chronic osteo of lt heel on IV zosyn( bacteroides). Pt has had this chronic heel ulcer for at least 3 years. He has also been followed by vascular surgeon and it has been recommended that he have a LT BKA wc he has refused in the past but has now agreed. Pt denies any fever/ chills. - Past Medical History PRODUCT TESTER: Yes: Other (Peripheral neuropathy) Cardiovascular: Yes: HTN, Hyperlipdemia - Current Medication List Current Medications: Active Medications Acetaminophen (Tylenol -) 650 mg PO PRN [facility] Amino Acids (Prostat Sugar-Free Packet -) 30 ml PO TIDCM [facility] Atorvastatin Calcium (Lipitor -) 10 mg PO DAILY [facility] Clonazepam (Klonopin -) 1 mg PO BID [facility] Collagenase (Santyl -) 1 applic TP DAILY [facility] Docusate Sodium (Colace -) 300 mg PO HS [facility] Heparin Sodium (Porcine) (Heparin -) 5,000 unit SQ BID [facility] Hydromorphone HCl (Dilaudid Injection -) 2 mg IVPB Q4H PRN PRN Reason: PAIN Hydromorphone HCl (Dilaudid Community Services Manager -) 0 mg BARREL WASHER BARREL WASHER [facility] PRN Reason: Protocol Stop: 07/09/16 14:20 Hydromorphone HCl (Dilaudid Injection -) 2 mg IVPUSH [id number] PRN PRN Reason: PAIN Stop: 07/09/16 14:20 Lactated Ringer's (Lactated Ringers Solution) 1,000 mls @ 75 mls/hr IV ASDIR [facility] Insulin Aspart (Novolog Vial) 12 units SQ TIDAC [facility] Lactobacillus Acidophilus (Bacid -) 1 tab PO BID [facility] Lisinopril (Prinivil) 5 mg PO DAILY [facility] Multivitamins/Minerals/Vitamin C (Tab-A-Vit -) 1 tab PO DAILY [facility] Pantoprazole Sodium (Protonix -) 40 mg PO DAILY [facility] Polyethylene Glycol (Miralax (For Daily Use) -) 17 gm PO PRN [facility] Quetiapine Fumarate (Seroquel -) 200 mg PO HS [facility] Senna (Senna -) 2 tab PO DAILY [facility] Silver Sulfadiazine (Silvadene -) 1 applic TP BID [facility] - Objective Vital Signs: Vital Signs Temperature 97.8 F 07/06/16 09:39 Pulse Rate 66 07/06/16 09:39 Respiratory Rate 20 07/06/16 09:39 Blood Pressure 134/76 07/06/16 09:39 O2 Sat by Pulse Oximetry (%) 98 07/06/16 09:00 Constitutional: Yes: No Distress Eyes: Yes: WNL HENT: Yes: WNL Neck: Yes: WNL Cardiovascular: Yes: Regular Rate and Rhythm Respiratory: Yes: Regular Gastrointestinal: Yes: Soft, Abdomen, Obese ...Rectal Exam: Yes: Deferred Genitourinary: No: Anuria Breast(s): Yes: WNL Musculoskeletal: Yes: Muscle Weakness Extremities: Yes: Amputation Edema: Yes Edema: RLE: Trace Peripheral Pulses WNL: No Peripheral Pulses: Right Dorsalis Pedis: 1+ Integumentary: Yes: Venous Stasis Changes Wound/Incision: Yes: Dressing Dry and Intact Neurological: Yes: Alert, Oriented, Weakness Psychiatric: Yes: Alert, Oriented Labs: CBC, BMP 07/03/16 06:30 07/04/16 06:45 INR, PTT INR 1.16 (0.82-1.09) H 07/02/16 12:40 Problem List - Problems (1) Chronic osteomyelitis involving lower leg Assessment/Plan: S/p Lt BKA today. Code(s): M86.669 - OTHER CHRONIC OSTEOMYELITIS, UNSPECIFIED TIBIA AND FIBULA (2) Diabetes Code(s): E11.9 - TYPE 2 DIABETES MELLITUS WITHOUT COMPLICATIONS (3) HLD (hyperlipidemia) Assessment/Plan: on statin; total cholesterol 110 mg/dL , with LDL cholesterol 70 mg/dL on 02/11. Code(s): E78.5 - HYPERLIPIDEMIA, UNSPECIFIED (4) HTN (hypertension) Assessment/Plan: Change nifedipine to lisinopril (HTN; DM); f/u serial BP; BUN/Cr and electrolytes. Code(s): I10 - ESSENTIAL (PRIMARY) HYPERTENSION (5) Morbid obesity Assessment/Plan: diet modification, portion control. (Pt has done almost no exercise for years; blames it on neuropathy that started years before being diagnosed with DM, and espeically from LE issues he has been having). Code(s): E66.01 - MORBID (SEVERE) OBESITY DUE TO EXCESS CALORIES (6) [place] cardiac risk >20% in next 10 years Assessment/Plan: On statin. Started lisinopril. ECHO: normal LVEF; borderline LVH. Stress MIBI: small area of mild myocardial ischemia (base to apex). Aggressive control of lipids, BP, diet, weight. Physical rehabilitation post left BKA, with goal of regular aerobic exercise. Code(s): Z91.89 - OTH PERSONAL RISK FACTORS, NOT ELSEWHERE CLASSIFIED
[2016-07-06] MEDS ORDERED: HYDROmorphone *PCA* 10MG/50ML DISP.SYRIN PCA ONE (15:05)
[2016-07-06] MEDS: LACTATED RINGERS SOLUTION 1,000 ML IV SCH (15:15)
[2016-07-06] MEDS: HYDROmorphone *PCA* 10MG/50ML DISP.SYRIN PCA SCH (15:15)
[2016-07-06] MEDS ORDERED: PT OWN MED DRAWER 7, Y5N ONE (21:11)
[2016-07-06] MEDS: DOCUSATE SODIUM 100 MG CAPSULE (FP) PO SCH (21:34)
[2016-07-06] MEDS: QUEtiapine FUMARATE 200 MG TABLET PO SCH (21:34)
--- NOTE | 2016-07-06 23:15 | PN ---
Progress Note, Physician - Current Medication List Current Medications: Active Medications Acetaminophen (Tylenol -) 650 mg PO PRN [facility] Amino Acids (Prostat Sugar-Free Packet -) 30 ml PO TIDCM [facility] Last Admin: 07/06/16 17:39 Dose: Not Given Atorvastatin Calcium (Lipitor -) 10 mg PO DAILY [facility] Clonazepam (Klonopin -) 1 mg PO BID [facility] Last Admin: 07/06/16 21:33 Dose: 1 mg Collagenase (Santyl -) 1 applic TP DAILY [facility] Docusate Sodium (Colace -) 300 mg PO HS [facility] Last Admin: 07/06/16 21:34 Dose: 300 mg Heparin Sodium (Porcine) (Heparin -) 5,000 unit SQ BID [facility] Last Admin: 07/06/16 21:34 Dose: 5,000 unit Hydromorphone HCl (Dilaudid Injection -) 2 mg IVPB Q4H PRN PRN Reason: PAIN Hydromorphone HCl (Dilaudid Vending Machine Repairer -) 0 mg PARTS DELIVERY DRIVER PARTS DELIVERY DRIVER [facility] PRN Reason: Protocol Stop: 07/09/16 14:20 Last Admin: 07/06/16 15:15 Dose: 10 mg Hydromorphone HCl (Dilaudid Injection -) 2 mg IVPUSH [id number] PRN PRN Reason: PAIN Stop: 07/09/16 14:20 Last Admin: 07/06/16 14:30 Dose: 1 mg Lactated Ringer's (Lactated Ringers Solution) 1,000 mls @ 75 mls/hr IV ASDIR [facility] Last Admin: 07/06/16 15:15 Dose: 65 mls Insulin Aspart (Novolog Vial) 12 units SQ TIDAC [facility] Last Admin: 07/06/16 17:39 Dose: 12 units Lactobacillus Acidophilus (Bacid -) 1 tab PO BID [facility] Last Admin: 07/06/16 21:33 Dose: 1 tab Lisinopril (Prinivil) 5 mg PO DAILY [facility] Multivitamins/Minerals/Vitamin C (Tab-A-Vit -) 1 tab PO DAILY [facility] Pantoprazole Sodium (Protonix -) 40 mg PO DAILY [facility] Polyethylene Glycol (Miralax (For Daily Use) -) 17 gm PO PRN [facility] Quetiapine Fumarate (Seroquel -) 200 mg PO HS [facility] Last Admin: 07/06/16 21:34 Dose: 200 mg Senna (Senna -) 2 tab PO DAILY [facility] Silver Sulfadiazine (Silvadene -) 1 applic TP BID [facility] Last Admin: 07/06/16 21:38 Dose: 1 applic - Objective Vital Signs: Vital Signs Temperature 98.0 F 07/06/16 16:24 Pulse Rate 92 H 07/06/16 16:24 Respiratory Rate 18 07/06/16 20:38 Blood Pressure 107/71 07/06/16 16:24 O2 Sat by Pulse Oximetry (%) 99 07/06/16 20:38 Labs: CBC, BMP 07/03/16 06:30 07/04/16 06:45 INR, PTT INR 1.16 (0.82-1.09) H 07/02/16 12:40 Problem List - Problems (1) Chronic osteomyelitis involving lower leg Code(s): M86.669 - OTHER CHRONIC OSTEOMYELITIS, UNSPECIFIED TIBIA AND FIBULA (2) Diabetes Code(s): E11.9 - TYPE 2 DIABETES MELLITUS WITHOUT COMPLICATIONS (3) Diabetic ulcer of ankle associated with type 1 diabetes mellitus Code(s): E10.622 - TYPE 1 DIABETES MELLITUS WITH OTHER SKIN ULCER L97.309 - NON-PRESSURE CHRONIC ULCER OF UNSP ANKLE WITH UNSP SEVERITY (4) HLD (hyperlipidemia) Code(s): E78.5 - HYPERLIPIDEMIA, UNSPECIFIED (5) HTN (hypertension) Code(s): I10 - ESSENTIAL (PRIMARY) HYPERTENSION (6) Morbid obesity Code(s): E66.01 - MORBID (SEVERE) OBESITY DUE TO EXCESS CALORIES
[2016-07-07] MEDS: LACTATED RINGERS SOLUTION 1,000 ML IV SCH ×2 (03:15→16:15)
[2016-07-07] MEDS: INSULIN (NOVOLOG) ASPART 100 UNITS/ML 10ML VIAL SQ SCH ×3 (06:39→17:37)
[2016-07-07 07:14] LABS: BASOPHIL 0.3 % (0-2.0); EOSINOPHIL 0.2 % (0-4.5); MCH 26.9 pg (25.7-33.7); MCHC 33.3 g/dl (32.0-35.9); MEAN CELL VOLUME 80.9 fl (80-96); MEAN PLT VOLUME 8.9 fl (7.5-11.1); NEUTROPHILS 71.7 % (42.8-82.8); PLATELET COUNT 151 K/MM3 (134-434); RDW 18.2 % (11.9-15.9); WHITE BLOOD COUNT 5.4 K/mm3 (4.0-10.0)
[2016-07-07] MEDS: AMINO ACIDS/PROTEIN HYDROLYS SUGAR-FREE 30 ML PACKET PO SCH ×3 (09:32→17:18)
[2016-07-07] MEDS: COLLAGENASE CLOSTRIDIUM HIST. 30 GRAMS TUBE TP SCH (09:32)
[2016-07-07] MEDS: HEPARIN NA (PORCINE) 5,000 UNITS/ML 1ML VIAL SQ SCH ×2 (09:38→21:47)
[2016-07-07] MEDS: MULTIVITAMINS (DAILY MVI) TABLET (FP) PO SCH (09:39)
[2016-07-07] MEDS: ATORVASTATIN CA 10 MG TABLET (FP) PO SCH (09:39)
[2016-07-07] MEDS: LISINOPRIL 5 MG TABLET (FP) PO SCH (09:40)
[2016-07-07] MEDS: clonazePAM 0.5 MG TABLET PO SCH ×3 (09:40→21:48)
[2016-07-07] MEDS: LACTOBACILLUS ACIDOPHILUS 1 EACH TAB (FP) PO SCH ×2 (09:41→21:47)
[2016-07-07] MEDS: PANTOPRAZOLE 40 MG TABLET (FP) PO SCH (09:41)
[2016-07-07] MEDS: SENNOSIDES 8.6MG TABLET (FP) PO SCH (09:41)
--- NOTE | 2016-07-07 09:45 | PN ---
Progress Note (short form) - Note Progress Note: Patient seen and examined this morning. 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 He is tolerating his diet. Denies fever, chills , nausea, vomiting. Last Vital Signs Temp Pulse Resp BP Pulse Ox 98.0 F 88 20 114/64 98 07/07/16 08:04 07/07/16 08:04 07/07/16 08:04 07/07/16 08:04 07/07/16 09:00 CBC, BMP 07/07/16 05:35 07/04/16 06:45 Exam: Gen: NAD LLE: knee immobilizer in place, dressing clean/dry/intact Problem List - Problems (1) Chronic osteomyelitis involving lower leg Assessment/Plan: POD#1 Left below knee amputation Continue knee immobilizer, will take down dressing on POD#3 Pain control Code(s): M86.669 - OTHER CHRONIC OSTEOMYELITIS, UNSPECIFIED TIBIA AND FIBULA
[2016-07-07] MEDS: SILVER SULFADIAZINE 1% TOP CREAM 50 GM JAR TP SCH ×2 (09:52→21:51)
[2016-07-07] MEDS ORDERED: HYDROmorphone *PCA* 10MG/50ML DISP.SYRIN PCA ONE (11:03)
[2016-07-07] MEDS ORDERED: IBUPROFEN 800 MG/8 ML IJ IVPB PRN (12:52)
--- NOTE | 2016-07-07 12:52 | PN ---
Progress Note (short form) - Note Progress Note: Post op day#1.S/P Left BKA under GA uneventful.Patient stable and is on Dilaudid FLY RAISER LOCKSTITCH for pain management.Patient c/o pain score of 7-8/10.So will add iv caldolor to it.Will continue parts chaser and will f/u.
[2016-07-07] MEDS: HYDROmorphone *PCA* 10MG/50ML DISP.SYRIN PCA SCH (16:13)
--- NOTE | 2016-07-07 17:19 | PN ---
Progress Note, Physician Chief Complaint: Pt s/p left BKA; denies chest pain or dyspnea. No LE pain presently. History of Present Illness: Pt is a 66 y/o morbidly obese white male who was transferred from [facility] where he jis being treated fro chronic osteo of lt heel on IV zosyn( bacteroides). Pt has had this chronic heel ulcer for at least 3 years. He has also been followed by vascular surgeon and it has been recommended that he have a LT BKA wc he has refused in the past but has now agreed. Pt denies any fever/ chills. 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: Yes: Other (Peripheral neuropathy) Cardiovascular: Yes: HTN, Hyperlipdemia - Current Medication List Current Medications: Active Medications Acetaminophen (Tylenol -) 650 mg PO PRN [facility] Amino Acids (Prostat Sugar-Free Packet -) 30 ml PO TIDCM [facility] Last Admin: 07/07/16 17:18 Dose: Not Given Atorvastatin Calcium (Lipitor -) 10 mg PO DAILY [facility] Last Admin: 07/07/16 09:39 Dose: 10 mg Clonazepam (Klonopin -) 1 mg PO BID [facility] Last Admin: 07/07/16 09:49 Dose: Not Given Collagenase (Santyl -) 1 applic TP DAILY [facility] Last Admin: 07/07/16 09:32 Dose: Not Given Docusate Sodium (Colace -) 300 mg PO HS [facility] Last Admin: 07/06/16 21:34 Dose: 300 mg Heparin Sodium (Porcine) (Heparin -) 5,000 unit SQ BID [facility] Last Admin: 07/07/16 09:38 Dose: 5,000 unit Hydromorphone HCl (Dilaudid Injection -) 2 mg IVPB Q4H PRN PRN Reason: PAIN Hydromorphone HCl (Dilaudid Waist Cutter -) 0 mg RISK MANAGEMENT DIRECTOR RISK MANAGEMENT DIRECTOR [facility] PRN Reason: Protocol Stop: 07/09/16 14:20 Last Admin: 07/07/16 16:13 Dose: Not Given Hydromorphone HCl (Dilaudid Injection -) 2 mg IVPUSH [id number] PRN PRN Reason: PAIN Stop: 07/09/16 14:20 Last Admin: 07/06/16 14:30 Dose: 1 mg Lactated Ringer's (Lactated Ringers Solution) 1,000 mls @ 75 mls/hr IV ASDIR [facility] Last Admin: 07/07/16 16:15 Dose: 75 mls/hr Ibuprofen (Caldolor Injection -) 800 mg IVPB Q8H PRN PRN Reason: FEVER Stop: 07/10/16 12:51 Insulin Aspart (Novolog Vial) 12 units SQ TIDAC [facility] Last Admin: 07/07/16 12:19 Dose: 12 units Lactobacillus Acidophilus (Bacid -) 1 tab PO BID [facility] Last Admin: 07/07/16 09:41 Dose: 1 tab Lisinopril (Prinivil) 5 mg PO DAILY [facility] Last Admin: 07/07/16 09:40 Dose: 5 mg Multivitamins/Minerals/Vitamin C (Tab-A-Vit -) 1 tab PO DAILY [facility] Last Admin: 07/07/16 09:39 Dose: 1 tab Pantoprazole Sodium (Protonix -) 40 mg PO DAILY [facility] Last Admin: 07/07/16 09:41 Dose: 40 mg Polyethylene Glycol (Miralax (For Daily Use) -) 17 gm PO PRN [facility] Quetiapine Fumarate (Seroquel -) 200 mg PO HS [facility] Last Admin: 07/06/16 21:34 Dose: 200 mg Senna (Senna -) 2 tab PO DAILY [facility] Last Admin: 07/07/16 09:41 Dose: 2 tab Silver Sulfadiazine (Silvadene -) 1 applic TP BID [facility] Last Admin: 07/07/16 09:52 Dose: 1 applic - Objective Vital Signs: Vital Signs Temperature 97.7 F 07/07/16 14:26 Pulse Rate 66 07/07/16 16:13 Respiratory Rate 16 07/07/16 16:13 Blood Pressure 114/56 07/07/16 16:13 O2 Sat by Pulse Oximetry (%) 98 07/07/16 09:00 Constitutional: Yes: Calm Eyes: Yes: WNL HENT: Yes: WNL Neck: Yes: WNL Cardiovascular: Yes: Regular Rate and Rhythm Respiratory: Yes: Regular Gastrointestinal: Yes: Soft, Abdomen, Obese ...Rectal Exam: Yes: Deferred Genitourinary: Yes: Anuria Breast(s): Yes: WNL Musculoskeletal: Yes: Muscle Weakness Extremities: Yes: Amputation, Cool Edema: Yes Edema: RLE: Trace Peripheral Pulses WNL: No Peripheral Pulses: Right Dorsalis Pedis: 1+ Integumentary: Yes: Venous Stasis Changes Wound/Incision: Yes: Dressing Dry and Intact Neurological: Yes: Alert, Oriented, Weakness Psychiatric: Yes: Alert, Oriented Labs: CBC, BMP 07/07/16 05:35 07/04/16 06:45 INR, PTT INR 1.16 (0.82-1.09) H 07/02/16 12:40 Abnormal Lab Results 07/07/16 05:35 RBC 3.72 L Hgb 10.0 L D Hct 30.1 L RDW 18.2 H Monocytes % 10.9 H Problem List - Problems (1) Chronic osteomyelitis involving lower leg Assessment/Plan: S/p Lt BKA. Code(s): M86.669 - OTHER CHRONIC OSTEOMYELITIS, UNSPECIFIED TIBIA AND FIBULA (2) Diabetes Assessment/Plan: On Novolog. Diet modification; weight loss are important, but compliance has been difficult. Code(s): E11.9 - TYPE 2 DIABETES MELLITUS WITHOUT COMPLICATIONS (3) HLD (hyperlipidemia) Assessment/Plan: on statin; total cholesterol 110 mg/dL , with LDL cholesterol 70 mg/dL on 02/11. Code(s): E78.5 - HYPERLIPIDEMIA, UNSPECIFIED (4) HTN (hypertension) Assessment/Plan: Changed nifedipine to lisinopril (HTN; DM); f/u serial BP; BUN/Cr and electrolytes. Code(s): I10 - ESSENTIAL (PRIMARY) HYPERTENSION (5) Morbid obesity Assessment/Plan: diet modification, portion control. (Pt has done almost no exercise for years; blames it on neuropathy that started years before being diagnosed with DM, and espeically from LE issues he has been having). Code(s): E66.01 - MORBID (SEVERE) OBESITY DUE TO EXCESS CALORIES (6) [place] cardiac risk >20% in next 10 years Assessment/Plan: On statin. Started lisinopril. ECHO: normal LVEF; borderline LVH. Stress MIBI: small area of mild myocardial ischemia (base to apex). Aggressive control of lipids, glucose, BP, diet, weight. Physical rehabilitation post left BKA, with goal of regular aerobic exercise. Code(s): Z91.89 - OTH PERSONAL RISK FACTORS, NOT ELSEWHERE CLASSIFIED
[2016-07-07] MEDS: DOCUSATE SODIUM 100 MG CAPSULE (FP) PO SCH (21:47)
[2016-07-07] MEDS: QUEtiapine FUMARATE 200 MG TABLET PO SCH (21:47)
--- NOTE | 2016-07-08 03:16 | PN ---
Progress Note, Physician History of Present Illness: Pt seen and examined 07/07/16 however note is being entered now - Current Medication List Current Medications: Active Medications Acetaminophen (Tylenol -) 650 mg PO PRN [facility] Amino Acids (Prostat Sugar-Free Packet -) 30 ml PO TIDCM [facility] Last Admin: 07/07/16 17:18 Dose: Not Given Atorvastatin Calcium (Lipitor -) 10 mg PO DAILY [facility] Last Admin: 07/07/16 09:39 Dose: 10 mg Clonazepam (Klonopin -) 1 mg PO BID [facility] Last Admin: 07/07/16 21:48 Dose: 1 mg Collagenase (Santyl -) 1 applic TP DAILY [facility] Last Admin: 07/07/16 09:32 Dose: Not Given Docusate Sodium (Colace -) 300 mg PO HS [facility] Last Admin: 07/07/16 21:47 Dose: 300 mg Heparin Sodium (Porcine) (Heparin -) 5,000 unit SQ BID [facility] Last Admin: 07/07/16 21:47 Dose: 5,000 unit Hydromorphone HCl (Dilaudid Injection -) 2 mg IVPB Q4H PRN PRN Reason: PAIN Hydromorphone HCl (Dilaudid Counseling Services Director -) 0 mg BUILDING SERVICE WORKER BUILDING SERVICE WORKER [facility] PRN Reason: Protocol Stop: 07/09/16 14:20 Last Admin: 07/07/16 16:13 Dose: Not Given Hydromorphone HCl (Dilaudid Injection -) 2 mg IVPUSH [id number] PRN PRN Reason: PAIN Stop: 07/09/16 14:20 Last Admin: 07/06/16 14:30 Dose: 1 mg Lactated Ringer's (Lactated Ringers Solution) 1,000 mls @ 75 mls/hr IV ASDIR [facility] Last Admin: 07/07/16 16:15 Dose: 75 mls/hr Ibuprofen (Caldolor Injection -) 800 mg IVPB Q8H PRN PRN Reason: FEVER Stop: 07/10/16 12:51 Insulin Aspart (Novolog Vial) 12 units SQ TIDAC [facility] Last Admin: 07/07/16 17:37 Dose: 12 units Lactobacillus Acidophilus (Bacid -) 1 tab PO BID [facility] Last Admin: 07/07/16 21:47 Dose: 1 tab Lisinopril (Prinivil) 5 mg PO DAILY [facility] Last Admin: 07/07/16 09:40 Dose: 5 mg Multivitamins/Minerals/Vitamin C (Tab-A-Vit -) 1 tab PO DAILY [facility] Last Admin: 07/07/16 09:39 Dose: 1 tab Pantoprazole Sodium (Protonix -) 40 mg PO DAILY [facility] Last Admin: 07/07/16 09:41 Dose: 40 mg Polyethylene Glycol (Miralax (For Daily Use) -) 17 gm PO PRN [facility] Quetiapine Fumarate (Seroquel -) 200 mg PO HS [facility] Last Admin: 07/07/16 21:47 Dose: 200 mg Senna (Senna -) 2 tab PO DAILY [facility] Last Admin: 07/07/16 09:41 Dose: 2 tab Silver Sulfadiazine (Silvadene -) 1 applic TP BID [facility] Last Admin: 07/07/16 21:51 Dose: 1 applic - Objective Vital Signs: Vital Signs Temperature 98.3 F 07/07/16 18:38 Pulse Rate 65 07/07/16 18:38 Respiratory Rate 18 07/07/16 18:38 Blood Pressure 107/55 07/07/16 18:38 O2 Sat by Pulse Oximetry (%) 97 07/07/16 21:00 Labs: CBC, BMP 07/07/16 05:35 07/04/16 06:45 INR, PTT INR 1.16 (0.82-1.09) H 07/02/16 12:40 Problem List - Problems (1) Chronic osteomyelitis involving lower leg Code(s): M86.669 - OTHER CHRONIC OSTEOMYELITIS, UNSPECIFIED TIBIA AND FIBULA (2) Diabetes Code(s): E11.9 - TYPE 2 DIABETES MELLITUS WITHOUT COMPLICATIONS (3) Diabetic ulcer of ankle associated with type 1 diabetes mellitus Code(s): E10.622 - TYPE 1 DIABETES MELLITUS WITH OTHER SKIN ULCER L97.309 - NON-PRESSURE CHRONIC ULCER OF UNSP ANKLE WITH UNSP SEVERITY (4) HLD (hyperlipidemia) Code(s): E78.5 - HYPERLIPIDEMIA, UNSPECIFIED (5) HTN (hypertension) Code(s): I10 - ESSENTIAL (PRIMARY) HYPERTENSION (6) Morbid obesity Code(s): E66.01 - MORBID (SEVERE) OBESITY DUE TO EXCESS CALORIES
[2016-07-08] MEDS: INSULIN (NOVOLOG) ASPART 100 UNITS/ML 10ML VIAL SQ SCH ×3 (06:21→16:52)
[2016-07-08] MEDS: AMINO ACIDS/PROTEIN HYDROLYS SUGAR-FREE 30 ML PACKET PO SCH ×3 (08:12→16:48)
[2016-07-08] MEDS: LACTOBACILLUS ACIDOPHILUS 1 EACH TAB (FP) PO SCH ×2 (09:44→22:35)
[2016-07-08] MEDS: HEPARIN NA (PORCINE) 5,000 UNITS/ML 1ML VIAL SQ SCH ×2 (09:45→22:38)
[2016-07-08] MEDS: PANTOPRAZOLE 40 MG TABLET (FP) PO SCH (09:46)
[2016-07-08] MEDS: clonazePAM 0.5 MG TABLET PO SCH ×2 (09:46→22:37)
[2016-07-08] MEDS: ATORVASTATIN CA 10 MG TABLET (FP) PO SCH (09:47)
[2016-07-08] MEDS: COLLAGENASE CLOSTRIDIUM HIST. 30 GRAMS TUBE TP SCH (09:48)
[2016-07-08] MEDS: MULTIVITAMINS (DAILY MVI) TABLET (FP) PO SCH (09:48)
[2016-07-08] MEDS: SILVER SULFADIAZINE 1% TOP CREAM 50 GM JAR TP SCH ×2 (09:48→22:38)
[2016-07-08] MEDS: SENNOSIDES 8.6MG TABLET (FP) PO SCH (09:51)
[2016-07-08] MEDS: LISINOPRIL 5 MG TABLET (FP) PO SCH (09:54)
--- NOTE | 2016-07-08 10:20 | PN ---
Progress Note (short form) - Note Progress Note: Patient seen this morning. Patient is having some pain, using FLIGHT AGENT for pain control. Last Vital Signs Temp Pulse Resp BP Pulse Ox 98.5 F 83 18 108/59 97 07/08/16 09:08 07/08/16 09:08 07/08/16 09:08 07/08/16 09:08 07/07/16 21:00 Exam: Gen: NAD LLE: knee immobilizer in place, dressings clean/dry/intact Problem List - Problems (1) Chronic osteomyelitis involving lower leg Assessment/Plan: POD#2 Left below knee amputation Continue knee immobilizer, will take down dressing tomorrow Code(s): M86.669 - OTHER CHRONIC OSTEOMYELITIS, UNSPECIFIED TIBIA AND FIBULA
--- NOTE | 2016-07-08 10:34 | PN ---
Progress Note (short form) - Note Progress Note: POD #2 - s/p left below knee amputation under general anesthesia with dilaudid tone regulator for postop pain control. Pt. doing well, sitting up comfortably in bed. No complaints. Tolerating po, so will discontinue tone regulator and order po oxycodone at this time. Reconsult if needed.
[2016-07-08] MEDS: LACTATED RINGERS SOLUTION 1,000 ML IV SCH (14:30)
[2016-07-08] MEDS ORDERED: PT OWN MED DRAWER 7, Y5N ONE (22:21)
[2016-07-08] MEDS: ACETAMINOPHEN 325 MG TABLET (FP) PO SCH (22:35)
[2016-07-08] MEDS: oxyCODONE HCL 5 MG TABLET PO PRN (22:36)
[2016-07-08] MEDS: DOCUSATE SODIUM 100 MG CAPSULE (FP) PO SCH (22:36)
[2016-07-08] MEDS: QUEtiapine FUMARATE 200 MG TABLET PO SCH (22:37)
--- NOTE | 2016-07-08 23:58 | PN ---
Progress Note, Physician - Current Medication List Current Medications: Active Medications Acetaminophen (Tylenol -) 650 mg PO PRN [facility] Last Admin: 07/08/16 22:35 Dose: 650 mg Amino Acids (Prostat Sugar-Free Packet -) 30 ml PO TIDCM [facility] Last Admin: 07/08/16 16:48 Dose: Not Given Atorvastatin Calcium (Lipitor -) 10 mg PO DAILY [facility] Last Admin: 07/08/16 09:47 Dose: 10 mg Clonazepam (Klonopin -) 1 mg PO BID [facility] Last Admin: 07/08/16 22:37 Dose: 1 mg Collagenase (Santyl -) 1 applic TP DAILY [facility] Last Admin: 07/08/16 09:48 Dose: Not Given Docusate Sodium (Colace -) 300 mg PO HS [facility] Last Admin: 07/08/16 22:36 Dose: 300 mg Heparin Sodium (Porcine) (Heparin -) 5,000 unit SQ BID [facility] Last Admin: 07/08/16 22:38 Dose: 5,000 unit Hydromorphone HCl (Dilaudid Injection -) 2 mg IVPB Q4H PRN PRN Reason: PAIN Hydromorphone HCl (Dilaudid Injection -) 2 mg IVPUSH [id number] PRN PRN Reason: PAIN Stop: 07/09/16 14:20 Last Admin: 07/06/16 14:30 Dose: 1 mg Ibuprofen (Caldolor Injection -) 800 mg IVPB Q8H PRN PRN Reason: FEVER Stop: 07/10/16 12:51 Insulin Aspart (Novolog Vial) 12 units SQ TIDAC [facility] Last Admin: 07/08/16 16:52 Dose: 12 units Lactobacillus Acidophilus (Bacid -) 1 tab PO BID [facility] Last Admin: 07/08/16 22:35 Dose: 1 tab Lisinopril (Prinivil) 5 mg PO DAILY [facility] Last Admin: 07/08/16 09:54 Dose: Not Given Multivitamins/Minerals/Vitamin C (Tab-A-Vit -) 1 tab PO DAILY [facility] Last Admin: 07/08/16 09:48 Dose: 1 tab Oxycodone HCl (Roxicodone -) 10 mg PO Q4H PRN PRN Reason: PAIN Last Admin: 07/08/16 22:36 Dose: 10 mg Pantoprazole Sodium (Protonix -) 40 mg PO DAILY [facility] Last Admin: 07/08/16 09:46 Dose: 40 mg Polyethylene Glycol (Miralax (For Daily Use) -) 17 gm PO PRN [facility] Quetiapine Fumarate (Seroquel -) 200 mg PO HS [facility] Last Admin: 07/08/16 22:37 Dose: 200 mg Senna (Senna -) 2 tab PO DAILY [facility] Last Admin: 07/08/16 09:51 Dose: Not Given Silver Sulfadiazine (Silvadene -) 1 applic TP BID [facility] Last Admin: 07/08/16 22:38 Dose: 1 applic - Objective Vital Signs: Vital Signs Temperature 97.8 F 07/08/16 22:15 Pulse Rate 69 07/08/16 22:15 Respiratory Rate 20 07/08/16 22:15 Blood Pressure 134/60 07/08/16 22:15 O2 Sat by Pulse Oximetry (%) 94 L 07/08/16 09:00 Labs: CBC, BMP 07/07/16 05:35 07/04/16 06:45 INR, PTT INR 1.16 (0.82-1.09) H 07/02/16 12:40 Problem List - Problems (1) Chronic osteomyelitis involving lower leg Code(s): M86.669 - OTHER CHRONIC OSTEOMYELITIS, UNSPECIFIED TIBIA AND FIBULA (2) Diabetes Code(s): E11.9 - TYPE 2 DIABETES MELLITUS WITHOUT COMPLICATIONS (3) Diabetic ulcer of ankle associated with type 1 diabetes mellitus Code(s): E10.622 - TYPE 1 DIABETES MELLITUS WITH OTHER SKIN ULCER L97.309 - NON-PRESSURE CHRONIC ULCER OF UNSP ANKLE WITH UNSP SEVERITY (4) HLD (hyperlipidemia) Code(s): E78.5 - HYPERLIPIDEMIA, UNSPECIFIED (5) HTN (hypertension) Code(s): I10 - ESSENTIAL (PRIMARY) HYPERTENSION (6) Morbid obesity Code(s): E66.01 - MORBID (SEVERE) OBESITY DUE TO EXCESS CALORIES
[2016-07-09] MEDS: INSULIN (NOVOLOG) ASPART 100 UNITS/ML 10ML VIAL SQ SCH ×3 (06:52→17:07)
[2016-07-09] MEDS: AMINO ACIDS/PROTEIN HYDROLYS SUGAR-FREE 30 ML PACKET PO SCH ×3 (08:20→17:31)
[2016-07-09] MEDS ORDERED: PT OWN MED DRAWER 7, Y5N ONE (09:14)
[2016-07-09] MEDS: ACETAMINOPHEN 325 MG TABLET (FP) PO SCH (09:26)
[2016-07-09] MEDS: MULTIVITAMINS (DAILY MVI) TABLET (FP) PO SCH (09:27)
[2016-07-09] MEDS: PANTOPRAZOLE 40 MG TABLET (FP) PO SCH (09:27)
[2016-07-09] MEDS: oxyCODONE HCL 5 MG TABLET PO PRN ×3 (09:27→23:22)
[2016-07-09] MEDS: clonazePAM 0.5 MG TABLET PO SCH ×2 (09:27→22:21)
[2016-07-09] MEDS: SENNOSIDES 8.6MG TABLET (FP) PO SCH (09:27)
[2016-07-09] MEDS: LACTOBACILLUS ACIDOPHILUS 1 EACH TAB (FP) PO SCH ×2 (09:28→22:22)
[2016-07-09] MEDS: ATORVASTATIN CA 10 MG TABLET (FP) PO SCH (09:28)
[2016-07-09] MEDS: HEPARIN NA (PORCINE) 5,000 UNITS/ML 1ML VIAL SQ SCH ×2 (09:28→22:22)
[2016-07-09] MEDS: LISINOPRIL 5 MG TABLET (FP) PO SCH (09:28)
[2016-07-09] MEDS: SILVER SULFADIAZINE 1% TOP CREAM 50 GM JAR TP SCH ×2 (09:32→23:25)
--- NOTE | 2016-07-09 11:51 | PN ---
Progress Note (short form) - Note Progress Note: Vascular Surgery- Dr. Wagner Patient seen and examined this morning. Patient states he is having some pain, about to receive Oxycodone. Patient is tolerating his diet. Denies fever,chills , nausea, vomiting. Last Vital Signs Temp Pulse Resp BP Pulse Ox 97.8 F 66 16 128/66 98 07/09/16 10:00 07/09/16 10:00 07/09/16 10:00 07/09/16 10:00 07/09/16 09:00 Exam: Gen: NAD LLE: s/p left BKA, dressing taken down on rounds, staple line intact with drainage, erythema, or hematoma. Good cap refill. Skin irritation noted over patella from knee immobilizer- ABD placed for padding, knee immobilizer replaced Problem List - Problems (1) Chronic osteomyelitis involving lower leg Assessment/Plan: POD#3 s/p left BKA Dressing removed and changed on rounds Continue knee immobilizer Pain control Discussed with Dr. Wagner Code(s): M86.669 - OTHER CHRONIC OSTEOMYELITIS, UNSPECIFIED TIBIA AND FIBULA
[2016-07-09] MEDS: QUEtiapine FUMARATE 200 MG TABLET PO SCH (22:21)
[2016-07-09] MEDS: DOCUSATE SODIUM 100 MG CAPSULE (FP) PO SCH (22:22)
[2016-07-09 22:58] LABS: URINE APPEARANCE CLEAR; URINE BILIRUBIN NEGATIVE (NEGATIVE); URINE BLOOD 3+ (NEGATIVE); URINE COLOR YELLOW; URINE GLUCOSE (UA) NEGATIVE (NEGATIVE); URINE KETONE NEGATIVE (NEGATIVE); URINE LEUK ESTERASE TRACE (NEGATIVE); URINE NITRITE NEGATIVE (NEGATIVE); URINE PROTEIN 1+ (NEGATIVE); URINE UROBILINOGEN NEGATIVE E.U./dl (0.2-1.0)
[2016-07-09 23:07] LABS: URINE BACTERIA RARE /hpf (NONE SEEN); URINE MUCUS RARE; URINE RBC 234 /hpf (0-3); URINE WBC 10 /hpf (3-5)
--- NOTE | 2016-07-09 23:43 | PN ---
Progress Note, Physician - Current Medication List Current Medications: Active Medications Acetaminophen (Tylenol -) 650 mg PO PRN [facility] Last Admin: 07/09/16 09:26 Dose: 650 mg Amino Acids (Prostat Sugar-Free Packet -) 30 ml PO TIDCM [facility] Last Admin: 07/09/16 17:31 Dose: Not Given Atorvastatin Calcium (Lipitor -) 10 mg PO DAILY [facility] Last Admin: 07/09/16 09:28 Dose: 10 mg Clonazepam (Klonopin -) 1 mg PO BID [facility] Last Admin: 07/09/16 22:21 Dose: 1 mg Docusate Sodium (Colace -) 300 mg PO HS [facility] Last Admin: 07/09/16 22:22 Dose: 300 mg Heparin Sodium (Porcine) (Heparin -) 5,000 unit SQ BID [facility] Last Admin: 07/09/16 22:22 Dose: 5,000 unit Ibuprofen (Caldolor Injection -) 800 mg IVPB Q8H PRN PRN Reason: FEVER Stop: 07/10/16 12:51 Insulin Aspart (Novolog Vial) 12 units SQ TIDAC [facility] Last Admin: 07/09/16 17:07 Dose: 12 units Lactobacillus Acidophilus (Bacid -) 1 tab PO BID [facility] Last Admin: 07/09/16 22:22 Dose: 1 tab Lisinopril (Prinivil) 5 mg PO DAILY [facility] Last Admin: 07/09/16 09:28 Dose: 5 mg Multivitamins/Minerals/Vitamin C (Tab-A-Vit -) 1 tab PO DAILY [facility] Last Admin: 07/09/16 09:27 Dose: 1 tab Oxycodone HCl (Roxicodone -) 10 mg PO Q4H PRN PRN Reason: PAIN Last Admin: 07/09/16 23:22 Dose: 10 mg Pantoprazole Sodium (Protonix -) 40 mg PO DAILY [facility] Last Admin: 07/09/16 09:27 Dose: 40 mg Polyethylene Glycol (Miralax (For Daily Use) -) 17 gm PO PRN [facility] Quetiapine Fumarate (Seroquel -) 200 mg PO HS [facility] Last Admin: 07/09/16 22:21 Dose: 200 mg Senna (Senna -) 2 tab PO DAILY [facility] Last Admin: 07/09/16 09:27 Dose: 2 tab Silver Sulfadiazine (Silvadene -) 1 applic TP BID [facility] Last Admin: 07/09/16 23:25 Dose: Not Given - Objective Vital Signs: Vital Signs Temperature 97.8 F 07/09/16 18:42 Pulse Rate 47 L 07/09/16 18:42 Respiratory Rate 18 07/09/16 18:42 Blood Pressure 117/52 07/09/16 18:42 O2 Sat by Pulse Oximetry (%) 98 07/09/16 09:00 Labs: CBC, BMP 07/07/16 05:35 07/04/16 06:45 INR, PTT INR 1.16 (0.82-1.09) H 07/02/16 12:40 Problem List - Problems (1) Chronic osteomyelitis involving lower leg Code(s): M86.669 - OTHER CHRONIC OSTEOMYELITIS, UNSPECIFIED TIBIA AND FIBULA (2) Diabetes Code(s): E11.9 - TYPE 2 DIABETES MELLITUS WITHOUT COMPLICATIONS (3) Diabetic ulcer of ankle associated with type 1 diabetes mellitus Code(s): E10.622 - TYPE 1 DIABETES MELLITUS WITH OTHER SKIN ULCER L97.309 - NON-PRESSURE CHRONIC ULCER OF UNSP ANKLE WITH UNSP SEVERITY (4) HLD (hyperlipidemia) Code(s): E78.5 - HYPERLIPIDEMIA, UNSPECIFIED (5) HTN (hypertension) Code(s): I10 - ESSENTIAL (PRIMARY) HYPERTENSION (6) Morbid obesity Code(s): E66.01 - MORBID (SEVERE) OBESITY DUE TO EXCESS CALORIES
[2016-07-10] MEDS: INSULIN (NOVOLOG) ASPART 100 UNITS/ML 10ML VIAL SQ SCH ×3 (06:32→16:20)
[2016-07-10] MEDS: oxyCODONE HCL 5 MG TABLET PO PRN ×2 (06:32→20:21)
[2016-07-10] MEDS: AMINO ACIDS/PROTEIN HYDROLYS SUGAR-FREE 30 ML PACKET PO SCH ×3 (08:36→17:12)
[2016-07-10] MEDS: LISINOPRIL 5 MG TABLET (FP) PO SCH (10:13)
[2016-07-10] MEDS: MULTIVITAMINS (DAILY MVI) TABLET (FP) PO SCH (10:13)
[2016-07-10] MEDS: HEPARIN NA (PORCINE) 5,000 UNITS/ML 1ML VIAL SQ SCH ×2 (10:13→21:19)
[2016-07-10] MEDS: clonazePAM 0.5 MG TABLET PO SCH ×2 (10:13→21:19)
[2016-07-10] MEDS: PANTOPRAZOLE 40 MG TABLET (FP) PO SCH (10:13)
[2016-07-10] MEDS: LACTOBACILLUS ACIDOPHILUS 1 EACH TAB (FP) PO SCH ×2 (10:13→21:19)
[2016-07-10] MEDS: ATORVASTATIN CA 10 MG TABLET (FP) PO SCH (10:13)
[2016-07-10] MEDS: SENNOSIDES 8.6MG TABLET (FP) PO SCH (10:14)
--- NOTE | 2016-07-10 13:29 | PN ---
Progress Note (short form) - Note Progress Note: Vascular Surgery S/P Left BKA Dressing changed. Incision is clean dry and intact. Cont present care. Will go to SNF soon. Will need to follow up in wound care clinic in one week. call for appt upon DC -- [phone] Bryant Wagner DO
[2016-07-10] MEDS: SILVER SULFADIAZINE 1% TOP CREAM 50 GM JAR TP SCH ×2 (13:46→21:22)
--- NOTE | 2016-07-10 13:54 | PATH ---
Surgical Pathology Report Patient Name: GOSIA RATLIFF [facility]. Rec. #: [id number] /Age/Gender: 1950 (Age: 66) / M Account: [id number] Location: [address] [place] [address]/[facility] Taken: 07/06/2016 Received: 07/07/2016 Reported: 07/10/2016 Physicians: Bryant Peralta M.D. Specimen(s) Received BELOW KNEE AMPUTATION LEFT Clinical History Chronic osteomyelitis Final Diagnosis LEG, LEFT, BELOW KNEE AMPUTATION: ULCERATED AND NECROTIC SKIN AND UNDERLYING SOFT TISSUE WITH CHRONIC INFLAMMATION AND FIBROSIS. UNDERLYING BONE WITH CHRONIC OSTEOMYELITIS. 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 SKIN AND SOFT TISSUE AT RESECTION MARGIN APPEAR VIABLE. BONE AT RESECTION MARGIN APPEARS VIABLE. Electronically Signed Jameel Adame M.D. Gross Description Received fresh, labeled "left below knee amputation" is a 28 cm in length portion of a left below the knee amputation specimen. There is a 5 cm in length exposed portion of tibia and a 6 cm in length exposed portion of fibula at the proximal end of the specimen. The foot measures 27.5 cm from heel to toe. The heel displays a 6.5 x 6.0 cm ulcerated lesion possibly involving the underlying bone. There is a 0.6 x 0.4 cm valerio, crusted epidermal lesion on the dorsal aspect of the fourth toe. Additionally, there is a 2.8 x 2.5 cm valerio-brown, crusted lesion on the dorsal aspect of the foot. Sectioning of the vasculature displays focal, segmental, mild to moderate atherosclerosis. Faro Dealer sections are submitted in 9 cassettes as follows: 1-heel ulcer; 2-bone underlying heel ulcer, following decalcification; 3-fourth toe lesion; 4-dorsal foot lesion; 5-skin and soft tissue margin; 6-bone margin, following decalcification; 7-anterior tibial artery; 8-posterior tibial artery; 9-dorsalis pedis. /07/07/201607/07/2016
--- NOTE | 2016-07-10 14:53 | PN ---
Progress Note, Physician History of Present Illness: 66yo male with PMHx Diabetes, peripheral neuropathy, chronic left heel dm ulcer x3 yrs, hyperlipidemia. Admitted to [facility] with chronic left heel (diabteic ulcer) . Patient states he's had this ulcer for 3 years and still hasn't been able to close. He informs me that he has had multiple PICC lines to treat the associated calcaneal osteomyelitis. He tried wound VAC therapy without success. ID note appreciated. Patient states he's had a converation with Dr. Wagner regarding LLE BKA and wishes to proceed if it's deemed the most prudent. A elizabeth cath was placed in Er as he was in retention. He ambulates with a walker. - Current Medication List Current Medications: Active Medications Acetaminophen (Tylenol -) 650 mg PO PRN [facility] Last Admin: 07/09/16 09:26 Dose: 650 mg Amino Acids (Prostat Sugar-Free Packet -) 30 ml PO TIDCM [facility] Last Admin: 07/10/16 13:06 Dose: Not Given Atorvastatin Calcium (Lipitor -) 10 mg PO DAILY [facility] Last Admin: 07/10/16 10:13 Dose: 10 mg Clonazepam (Klonopin -) 1 mg PO BID [facility] Last Admin: 07/10/16 10:13 Dose: 1 mg Docusate Sodium (Colace -) 300 mg PO HS [facility] Last Admin: 07/09/16 22:22 Dose: 300 mg Heparin Sodium (Porcine) (Heparin -) 5,000 unit SQ BID [facility] Last Admin: 07/10/16 10:13 Dose: 5,000 unit Insulin Aspart (Novolog Vial) 12 units SQ TIDAC [facility] Last Admin: 07/10/16 11:27 Dose: 12 units Lactobacillus Acidophilus (Bacid -) 1 tab PO BID [facility] Last Admin: 07/10/16 10:13 Dose: 1 tab Lisinopril (Prinivil) 5 mg PO DAILY [facility] Last Admin: 07/10/16 10:13 Dose: 5 mg Multivitamins/Minerals/Vitamin C (Tab-A-Vit -) 1 tab PO DAILY [facility] Last Admin: 07/10/16 10:13 Dose: 1 tab Oxycodone HCl (Roxicodone -) 10 mg PO Q4H PRN PRN Reason: PAIN Last Admin: 07/10/16 06:32 Dose: 10 mg Pantoprazole Sodium (Protonix -) 40 mg PO DAILY [facility] Last Admin: 07/10/16 10:13 Dose: 40 mg Polyethylene Glycol (Miralax (For Daily Use) -) 17 gm PO PRN [facility] Quetiapine Fumarate (Seroquel -) 200 mg PO HS [facility] Last Admin: 07/09/16 22:21 Dose: 200 mg Senna (Senna -) 2 tab PO DAILY [facility] Last Admin: 07/10/16 10:14 Dose: Not Given Silver Sulfadiazine (Silvadene -) 1 applic TP BID [facility] Last Admin: 07/10/16 13:46 Dose: 1 applic - Objective Vital Signs: Vital Signs Temperature 97.7 F 07/10/16 08:56 Pulse Rate 86 07/10/16 08:56 Respiratory Rate 18 07/10/16 08:56 Blood Pressure 140/80 07/10/16 08:56 O2 Sat by Pulse Oximetry (%) 98 07/10/16 09:00 Eyes: Yes: WNL, Conjunctiva Clear, EOM Intact HENT: Yes: WNL, Atraumatic, Normocephalic Neck: Yes: WNL, Supple, Trachea Midline Cardiovascular: Yes: WNL, Regular Rate and Rhythm Respiratory: Yes: WNL, Regular, CTA Bilaterally Gastrointestinal: Yes: WNL, Normal Bowel Sounds Genitourinary: Yes: WNL Musculoskeletal: Yes: WNL Extremities: Yes: WNL Edema: No Integumentary: Yes: WNL Neurological: Yes: WNL, Alert, Oriented ...Motor Strength: WNL Psychiatric: Yes: WNL Labs: CBC, BMP 07/07/16 05:35 07/04/16 06:45 INR, PTT INR 1.16 (0.82-1.09) H 07/02/16 12:40 Problem List - Problems (1) Chronic osteomyelitis involving lower leg Code(s): M86.669 - OTHER CHRONIC OSTEOMYELITIS, UNSPECIFIED TIBIA AND FIBULA (2) Diabetic ulcer of ankle associated with type 1 diabetes mellitus Code(s): E10.622 - TYPE 1 DIABETES MELLITUS WITH OTHER SKIN ULCER L97.309 - NON-PRESSURE CHRONIC ULCER OF UNSP ANKLE WITH UNSP SEVERITY (3) Closed head injury Code(s): S09.90XA - UNSPECIFIED INJURY OF HEAD, INITIAL ENCOUNTER (4) Osteomyelitis Code(s): M86.9 - OSTEOMYELITIS, UNSPECIFIED Qualifiers: Osteomyelitis location: foot Laterality: left Chronicity: chronic Qualified Code(s): M86.672 - Other chronic osteomyelitis, left ankle and foot (5) Pseudomonas aeruginosa infection Code(s): A49.8 - OTHER BACTERIAL INFECTIONS OF UNSPECIFIED SITE Assessment/Plan - Problems (1) Chronic osteomyelitis involving lower leg Assessment/Plan: S/p Lt BKA. Code(s): M86.669 - OTHER CHRONIC OSTEOMYELITIS, UNSPECIFIED TIBIA AND FIBULA (2) Diabetes Assessment/Plan: On Novolog. Diet modification; weight loss are important, but compliance has been difficult. Code(s): E11.9 - TYPE 2 DIABETES MELLITUS WITHOUT COMPLICATIONS (3) HLD (hyperlipidemia) Assessment/Plan: on statin; total cholesterol 110 mg/dL , with LDL cholesterol 70 mg/dL on 02/11. Code(s): E78.5 - HYPERLIPIDEMIA, UNSPECIFIED (4) HTN (hypertension) Assessment/Plan: Changed nifedipine to lisinopril (HTN; DM); f/u serial BP; BUN/Cr and electrolytes. Code(s): I10 - ESSENTIAL (PRIMARY) HYPERTENSION (5) Morbid obesity Assessment/Plan: diet modification, portion control. (Pt has done almost no exercise for years; blames it on neuropathy that started years before being diagnosed with DM, and espeically from LE issues he has been having). Code(s): E66.01 - MORBID (SEVERE) OBESITY DUE TO EXCESS CALORIES (6) [place] cardiac risk >20% in next 10 years Assessment/Plan: On statin. Started lisinopril. ECHO: normal LVEF; borderline LVH. Stress MIBI: small area of mild myocardial ischemia (base to apex). ASA 325 qd if OK by surgery Aggressive control of lipids, glucose, BP, diet, weight. Physical rehabilitation post left BKA, with goal of regular aerobic exercise. Code(s): Z91.89 - OTH PERSONAL RISK FACTORS, NOT ELSEWHERE CLASSIFIED
[2016-07-10] MEDS: QUEtiapine FUMARATE 200 MG TABLET PO SCH (21:19)
[2016-07-10] MEDS: DOCUSATE SODIUM 100 MG CAPSULE (FP) PO SCH (21:19)
[2016-07-10] MEDS ORDERED: LACTULOSE 20 GM/30 ML UDC (FOR ORAL USE ONLY) PO ONE (22:00)
--- NOTE | 2016-07-10 22:28 | PN ---
Progress Note, Physician History of Present Illness: No new change Pt is constipated - Current Medication List Current Medications: Active Medications Acetaminophen (Tylenol -) 650 mg PO PRN [facility] Last Admin: 07/09/16 09:26 Dose: 650 mg Amino Acids (Prostat Sugar-Free Packet -) 30 ml PO TIDCM [facility] Last Admin: 07/10/16 17:12 Dose: Not Given Atorvastatin Calcium (Lipitor -) 10 mg PO DAILY [facility] Last Admin: 07/10/16 10:13 Dose: 10 mg Clonazepam (Klonopin -) 1 mg PO BID [facility] Last Admin: 07/10/16 21:19 Dose: 1 mg Docusate Sodium (Colace -) 300 mg PO HS [facility] Last Admin: 07/10/16 21:19 Dose: 300 mg Heparin Sodium (Porcine) (Heparin -) 5,000 unit SQ BID [facility] Last Admin: 07/10/16 21:19 Dose: 5,000 unit Insulin Aspart (Novolog Vial) 12 units SQ TIDAC [facility] Last Admin: 07/10/16 16:20 Dose: 12 units Lactobacillus Acidophilus (Bacid -) 1 tab PO BID [facility] Last Admin: 07/10/16 21:19 Dose: 1 tab Lisinopril (Prinivil) 5 mg PO DAILY [facility] Last Admin: 07/10/16 10:13 Dose: 5 mg Multivitamins/Minerals/Vitamin C (Tab-A-Vit -) 1 tab PO DAILY [facility] Last Admin: 07/10/16 10:13 Dose: 1 tab Oxycodone HCl (Roxicodone -) 10 mg PO Q4H PRN PRN Reason: PAIN Last Admin: 07/10/16 20:21 Dose: 10 mg Pantoprazole Sodium (Protonix -) 40 mg PO DAILY [facility] Last Admin: 07/10/16 10:13 Dose: 40 mg Polyethylene Glycol (Miralax (For Daily Use) -) 17 gm PO PRN [facility] Quetiapine Fumarate (Seroquel -) 200 mg PO HS [facility] Last Admin: 07/10/16 21:19 Dose: 200 mg Senna (Senna -) 2 tab PO DAILY [facility] Last Admin: 07/10/16 10:14 Dose: Not Given Silver Sulfadiazine (Silvadene -) 1 applic TP BID [facility] Last Admin: 07/10/16 21:22 Dose: 1 applic - Objective Vital Signs: Vital Signs Temperature 98.6 F 07/10/16 21:30 Pulse Rate 84 07/10/16 21:30 Respiratory Rate 20 07/10/16 21:30 Blood Pressure 140/82 07/10/16 21:30 O2 Sat by Pulse Oximetry (%) 97 07/10/16 20:59 Constitutional: Yes: Well Nourished Neck: Yes: Supple Cardiovascular: Yes: WNL, Regular Rate and Rhythm Respiratory: Yes: WNL, Regular, CTA Bilaterally Gastrointestinal: Yes: Normal Bowel Sounds, Soft, Abdomen, Obese Extremities: Yes: Other (Lt BKA) Labs: CBC, BMP 07/07/16 05:35 07/04/16 06:45 INR, PTT INR 1.16 (0.82-1.09) H 07/02/16 12:40 Problem List - Problems (1) Chronic osteomyelitis involving lower leg Assessment/Plan: S/P BKA Pt toelrating PT Pt still requiring pain meds Will probably need STR Constipation probably due to opoids Will increase bowel regimen Code(s): M86.669 - OTHER CHRONIC OSTEOMYELITIS, UNSPECIFIED TIBIA AND FIBULA (2) Diabetes Assessment/Plan: Cont humalog Cont sliding scale Code(s): E11.9 - TYPE 2 DIABETES MELLITUS WITHOUT COMPLICATIONS (3) HTN (hypertension) Assessment/Plan: Cont procardia Code(s): I10 - ESSENTIAL (PRIMARY) HYPERTENSION (4) HLD (hyperlipidemia) Assessment/Plan: Cont lipitor Code(s): E78.5 - HYPERLIPIDEMIA, UNSPECIFIED (5) Morbid obesity Code(s): E66.01 - MORBID (SEVERE) OBESITY DUE TO EXCESS CALORIES
[2016-07-11] MEDS: INSULIN (NOVOLOG) ASPART 100 UNITS/ML 10ML VIAL SQ SCH ×3 (06:35→16:50)
[2016-07-11 08:24] LABS: ALBUMIN 2.5 g/dl (3.4-5.0); ANION GAP 8 (8-16); CALCIUM 8.6 mg/dL (8.5-10.1); CO2 30 mmol/L (21-32); GLUCOSE,RANDOM 151 mg/dL (74-106)
[2016-07-11 08:28] LABS: ALK PHOS 89 U/L (45-117); BILIRUBIN,TOTAL 0.4 mg/dL (0.2-1.0); CREATININE 1.1 mg/dL (0.7-1.3); SGOT/AST 9 U/L (15-37); SGPT/ALT 11 U/L (12-78); TOT PROT 6.3 g/dl (6.4-8.2)
[2016-07-11] MEDS: AMINO ACIDS/PROTEIN HYDROLYS SUGAR-FREE 30 ML PACKET PO SCH ×3 (08:49→17:07)
[2016-07-11 08:55] LABS: BASOPHIL 0.8 % (0-2.0); EOSINOPHIL 9.1 % (0-4.5); MCH 26.4 pg (25.7-33.7); MEAN CELL VOLUME 82.3 fl (80-96); MEAN PLT VOLUME 9.1 fl (7.5-11.1); NEUTROPHILS 51.8 % (42.8-82.8); PLATELET COUNT 158 K/MM3 (134-434); RDW 17.9 % (11.9-15.9); WHITE BLOOD COUNT 4.2 K/mm3 (4.0-10.0)
[2016-07-11] MEDS: PANTOPRAZOLE 40 MG TABLET (FP) PO SCH (09:36)
[2016-07-11] MEDS: HEPARIN NA (PORCINE) 5,000 UNITS/ML 1ML VIAL SQ SCH ×2 (09:36→21:49)
[2016-07-11] MEDS: LACTOBACILLUS ACIDOPHILUS 1 EACH TAB (FP) PO SCH ×2 (09:36→21:48)
[2016-07-11] MEDS: MULTIVITAMINS (DAILY MVI) TABLET (FP) PO SCH (09:36)
[2016-07-11] MEDS: ATORVASTATIN CA 10 MG TABLET (FP) PO SCH (09:36)
[2016-07-11] MEDS: clonazePAM 0.5 MG TABLET PO SCH ×2 (09:36→21:48)
[2016-07-11] MEDS: LISINOPRIL 5 MG TABLET (FP) PO SCH (09:36)
[2016-07-11] MEDS: POLYETHYLENE GLYCOL 3350 119 GM BTL PO SCH ×4 (09:36→11:22)
[2016-07-11] MEDS: SENNOSIDES 8.6MG TABLET (FP) PO SCH (09:37)
[2016-07-11] MEDS: oxyCODONE HCL 5 MG TABLET PO PRN ×3 (09:43→21:49)
[2016-07-11] MEDS: SILVER SULFADIAZINE 1% TOP CREAM 50 GM JAR TP SCH ×2 (11:47→21:53)
--- NOTE | 2016-07-11 15:04 | PN ---
Progress Note, Physician Chief Complaint: Pt A&Ox3; s/p left BKA; denies chest pain or dyspnea. History of Present Illness: Pt is a 66 y/o morbidly obese white male who was transferred from [facility] where he jis being treated fro chronic osteo of lt heel on IV zosyn( bacteroides). Pt has had this chronic heel ulcer for at least 3 years. He has also been followed by vascular surgeon and it has been recommended that he have a LT BKA wc he has refused in the past but has now agreed. Pt denies any fever/ chills. - Past Medical History VASCULAR MANAGER: Yes: Other (Peripheral neuropathy) Cardiovascular: Yes: HTN, Hyperlipdemia - Current Medication List Current Medications: Active Medications Acetaminophen (Tylenol -) 650 mg PO PRN [facility] Last Admin: 07/09/16 09:26 Dose: 650 mg Amino Acids (Prostat Sugar-Free Packet -) 30 ml PO TIDCM [facility] Last Admin: 07/11/16 11:31 Dose: Not Given Atorvastatin Calcium (Lipitor -) 10 mg PO DAILY [facility] Last Admin: 07/11/16 09:36 Dose: 10 mg Clonazepam (Klonopin -) 1 mg PO BID [facility] Last Admin: 07/11/16 09:36 Dose: 1 mg Docusate Sodium (Colace -) 300 mg PO HS [facility] Last Admin: 07/10/16 21:19 Dose: 300 mg Heparin Sodium (Porcine) (Heparin -) 5,000 unit SQ BID [facility] Last Admin: 07/11/16 09:36 Dose: 5,000 unit Insulin Aspart (Novolog Vial) 12 units SQ TIDAC [facility] Last Admin: 07/11/16 11:09 Dose: 12 units Lactobacillus Acidophilus (Bacid -) 1 tab PO BID [facility] Last Admin: 07/11/16 09:36 Dose: 1 tab Lisinopril (Prinivil) 5 mg PO DAILY [facility] Last Admin: 07/11/16 09:36 Dose: 5 mg Multivitamins/Minerals/Vitamin C (Tab-A-Vit -) 1 tab PO DAILY [facility] Last Admin: 07/11/16 09:36 Dose: 1 tab Pantoprazole Sodium (Protonix -) 40 mg PO DAILY [facility] Last Admin: 07/11/16 09:36 Dose: 40 mg Polyethylene Glycol (Miralax (For Daily Use) -) 17 gm PO DAILY [facility] Last Admin: 07/11/16 11:22 Dose: 17 grams Quetiapine Fumarate (Seroquel -) 200 mg PO HS [facility] Last Admin: 07/10/16 21:19 Dose: 200 mg Senna (Senna -) 2 tab PO DAILY [facility] Last Admin: 07/11/16 09:37 Dose: Not Given Silver Sulfadiazine (Silvadene -) 1 applic TP BID [facility] Last Admin: 07/11/16 11:47 Dose: 1 applic - Objective Vital Signs: Vital Signs Temperature 97.9 F 07/11/16 13:56 Pulse Rate 106 H 07/11/16 13:56 Respiratory Rate 22 07/11/16 13:56 Blood Pressure 105/66 07/11/16 06:00 O2 Sat by Pulse Oximetry (%) 97 07/11/16 09:00 Constitutional: Yes: Calm Eyes: Yes: WNL HENT: Yes: WNL Neck: Yes: WNL Cardiovascular: Yes: Regular Rate and Rhythm Respiratory: Yes: Regular Gastrointestinal: Yes: Soft ...Rectal Exam: Yes: Deferred Genitourinary: No: Anuria Breast(s): Yes: WNL Musculoskeletal: Yes: Muscle Pain, Muscle Weakness Extremities: Yes: Amputation, Cool Edema: No Peripheral Pulses WNL: No Integumentary: Yes: Incision Wound/Incision: Yes: Open to air Neurological: Yes: Alert, Oriented, Weakness Psychiatric: Yes: Other (addictive personality) Labs: CBC, BMP 07/11/16 08:28 07/11/16 07:25 INR, PTT INR 1.16 (0.82-1.09) H 07/02/16 12:40 Problem List - Problems (1) Chronic osteomyelitis involving lower leg Assessment/Plan: S/p Lt BKA. Code(s): M86.669 - OTHER CHRONIC OSTEOMYELITIS, UNSPECIFIED TIBIA AND FIBULA (2) Diabetes Assessment/Plan: On Novolog. Diet modification; weight loss are important, but compliance has been difficult. He says he has lost several pounds since being in hospital. Code(s): E11.9 - TYPE 2 DIABETES MELLITUS WITHOUT COMPLICATIONS (3) HLD (hyperlipidemia) Assessment/Plan: on statin; total cholesterol 110 mg/dL , with LDL cholesterol 70 mg/dL on 02/10. Code(s): E78.5 - HYPERLIPIDEMIA, UNSPECIFIED (4) HTN (hypertension) Assessment/Plan: Changed nifedipine to lisinopril (HTN; DM); f/u serial BP, BUN/Cr and electrolytes (all presently WNL). Code(s): I10 - ESSENTIAL (PRIMARY) HYPERTENSION (5) Morbid obesity Assessment/Plan: diet modification, portion control. (Pt has done almost no exercise for years; blames it on neuropathy that started years before being diagnosed with DM, and espeically from LE issues he has been having). Code(s): E66.01 - MORBID (SEVERE) OBESITY DUE TO EXCESS CALORIES (6) [place] cardiac risk >20% in next 10 years Assessment/Plan: On statin. Started lisinopril. ECHO: normal LVEF; borderline LVH. Stress MIBI: small area of mild myocardial ischemia (base to apex). Aggressive control of lipids, glucose, BP, diet, weight. Physical rehabilitation post left BKA, with goal of regular aerobic exercise. Code(s): Z91.89 - OTH PERSONAL RISK FACTORS, NOT ELSEWHERE CLASSIFIED (7) Opioid dependence Assessment/Plan: On dilaudid pump since 2009 for "peripheral neuropathy: he has had since his 20s. He is calm now, but nurse reports he c/o 10/10 pain at times even with the pump and additional pain medications. +chronic constipation. 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 He says his is also in favor of this plan. Code(s): F11.20 - OPIOID DEPENDENCE, UNCOMPLICATED
[2016-07-11] MEDS: DOCUSATE SODIUM 100 MG CAPSULE (FP) PO SCH (21:48)
[2016-07-11] MEDS: QUEtiapine FUMARATE 200 MG TABLET PO SCH (21:49)
--- NOTE | 2016-07-11 22:22 | PN ---
Progress Note, Physician History of Present Illness: No new change - Current Medication List Current Medications: Active Medications Acetaminophen (Tylenol -) 650 mg PO PRN [facility] Last Admin: 07/09/16 09:26 Dose: 650 mg Amino Acids (Prostat Sugar-Free Packet -) 30 ml PO TIDCM [facility] Last Admin: 07/11/16 17:07 Dose: Not Given Atorvastatin Calcium (Lipitor -) 10 mg PO DAILY [facility] Last Admin: 07/11/16 09:36 Dose: 10 mg Clonazepam (Klonopin -) 1 mg PO BID [facility] Last Admin: 07/11/16 21:48 Dose: 1 mg Docusate Sodium (Colace -) 300 mg PO HS [facility] Last Admin: 07/11/16 21:48 Dose: 300 mg Heparin Sodium (Porcine) (Heparin -) 5,000 unit SQ BID [facility] Last Admin: 07/11/16 21:49 Dose: 5,000 unit Insulin Aspart (Novolog Vial) 12 units SQ TIDAC [facility] Last Admin: 07/11/16 16:50 Dose: 12 units Lactobacillus Acidophilus (Bacid -) 1 tab PO BID [facility] Last Admin: 07/11/16 21:48 Dose: 1 tab Lisinopril (Prinivil) 5 mg PO DAILY [facility] Last Admin: 07/11/16 09:36 Dose: 5 mg Multivitamins/Minerals/Vitamin C (Tab-A-Vit -) 1 tab PO DAILY [facility] Last Admin: 07/11/16 09:36 Dose: 1 tab Oxycodone HCl (Roxicodone -) 10 mg PO Q4H PRN PRN Reason: PAIN Last Admin: 07/11/16 21:49 Dose: 10 mg Pantoprazole Sodium (Protonix -) 40 mg PO DAILY [facility] Last Admin: 07/11/16 09:36 Dose: 40 mg Polyethylene Glycol (Miralax (For Daily Use) -) 17 gm PO DAILY [facility] Last Admin: 07/11/16 11:22 Dose: 17 grams Quetiapine Fumarate (Seroquel -) 200 mg PO HS [facility] Last Admin: 07/11/16 21:49 Dose: 200 mg Senna (Senna -) 2 tab PO DAILY [facility] Last Admin: 07/11/16 09:37 Dose: Not Given Silver Sulfadiazine (Silvadene -) 1 applic TP BID [facility] Last Admin: 07/11/16 21:53 Dose: 1 applic - Objective Vital Signs: Vital Signs Temperature 97.8 F 07/11/16 19:51 Pulse Rate 90 07/11/16 19:51 Respiratory Rate 22 07/11/16 19:51 Blood Pressure 132/70 07/11/16 19:51 O2 Sat by Pulse Oximetry (%) 99 07/11/16 20:23 Neck: Yes: Supple Cardiovascular: Yes: WNL, Regular Rate and Rhythm Respiratory: Yes: WNL, Regular, CTA Bilaterally Gastrointestinal: Yes: WNL, Normal Bowel Sounds, Soft Extremities: Yes: Other ((+) Lt BKA) Labs: CBC, BMP 07/11/16 08:28 07/11/16 07:25 INR, PTT INR 1.16 (0.82-1.09) H 07/02/16 12:40 Problem List - Problems (1) Chronic osteomyelitis involving lower leg Assessment/Plan: S/P BKA DC planning for am Code(s): M86.669 - OTHER CHRONIC OSTEOMYELITIS, UNSPECIFIED TIBIA AND FIBULA (2) Diabetes Assessment/Plan: Cont humalog Cont sliding scale Code(s): E11.9 - TYPE 2 DIABETES MELLITUS WITHOUT COMPLICATIONS (3) HTN (hypertension) Code(s): I10 - ESSENTIAL (PRIMARY) HYPERTENSION (4) HLD (hyperlipidemia) Code(s): E78.5 - HYPERLIPIDEMIA, UNSPECIFIED (5) Morbid obesity Code(s): E66.01 - MORBID (SEVERE) OBESITY DUE TO EXCESS CALORIES
[2016-07-12] MEDS: INSULIN (NOVOLOG) ASPART 100 UNITS/ML 10ML VIAL SQ SCH ×3 (06:28→17:54)
[2016-07-12] MEDS: AMINO ACIDS/PROTEIN HYDROLYS SUGAR-FREE 30 ML PACKET PO SCH ×3 (08:40→17:54)
[2016-07-12] MEDS: oxyCODONE HCL 5 MG TABLET PO PRN ×2 (08:44→16:38)
[2016-07-12] MEDS ORDERED: PT OWN MED DRAWER 7, Y5N ONE (09:11)
[2016-07-12] MEDS: HEPARIN NA (PORCINE) 5,000 UNITS/ML 1ML VIAL SQ SCH (09:12)
[2016-07-12] MEDS: clonazePAM 0.5 MG TABLET PO SCH (09:12)
[2016-07-12] MEDS: LACTOBACILLUS ACIDOPHILUS 1 EACH TAB (FP) PO SCH (09:12)
[2016-07-12] MEDS: POLYETHYLENE GLYCOL 3350 119 GM BTL PO SCH (09:13)
[2016-07-12] MEDS: ATORVASTATIN CA 10 MG TABLET (FP) PO SCH (09:13)
[2016-07-12] MEDS: PANTOPRAZOLE 40 MG TABLET (FP) PO SCH (09:14)
[2016-07-12] MEDS: LISINOPRIL 5 MG TABLET (FP) PO SCH (09:14)
[2016-07-12] MEDS: SENNOSIDES 8.6MG TABLET (FP) PO SCH (09:14)
[2016-07-12] MEDS: MULTIVITAMINS (DAILY MVI) TABLET (FP) PO SCH (09:15)
[2016-07-12] MEDS: SILVER SULFADIAZINE 1% TOP CREAM 50 GM JAR TP SCH (09:15)
--- NOTE | 2016-07-12 09:29 | PN ---
Progress Note (short form) - Note Progress Note: Pt without complaints of pain. March is in place, he states that in the past he had problems with retention but not recently until this admission. Vital Signs Period Temp Pulse Resp BP Sys/Gardner Pulse Ox Last 24 Hr 97.5 F-97.9 F 52-106 20-22 118-135/66-73 99 PE: GEN: appears comfortable Left BKA stump: inc c/d/i with mary. Dressing with serous drainage. Edema to BKA flap with minimal erythema to lateral aspect. Over the patella region there is a 2x2 cm, circular scabbed area without erythema. Good range of motion, 90 degrees flexion and full extension. CBC, BMP // 08:28 07/11/ 07:25 Problem List - Problems (1) Below knee amputation status Assessment/Plan: POD#6 from left BKA Local wound care with xeroform/dry dressing and knee immobilizer Physical therapy Pain managment Will need trial of void, possible medications to help urinary retention Code(s): Z89.519 - ACQUIRED ABSENCE OF UNSPECIFIED LEG BELOW KNEE Qualifiers: Laterality: left Qualified Code(s): Z89.512 - Acquired absence of left leg below knee
[2016-07-12 09:39] VITALS: BP 112/58; TEMP 97.8
--- NOTE | 2016-07-12 11:47 | PN ---
Progress Note, Physician History of Present Illness: 66yo male with PMHx Diabetes, peripheral neuropathy, chronic left heel dm ulcer x3 yrs, hyperlipidemia. Admitted to [facility] with chronic left heel (diabteic ulcer) . Patient states he's had this ulcer for 3 years and still hasn't been able to close. He informs me that he has had multiple PICC lines to treat the associated calcaneal osteomyelitis. He tried wound VAC therapy without success. ID note appreciated. Patient states he's had a converation with Dr. Wagner regarding LLE BKA and wishes to proceed if it's deemed the most prudent. A elizabeth cath was placed in Er as he was in retention. He ambulates with a walker. - Current Medication List Current Medications: Active Medications Acetaminophen (Tylenol -) 650 mg PO PRN [facility] Last Admin: 07/09/16 09:26 Dose: 650 mg Amino Acids (Prostat Sugar-Free Packet -) 30 ml PO TIDCM [facility] Last Admin: 07/12/16 08:40 Dose: Not Given Atorvastatin Calcium (Lipitor -) 10 mg PO DAILY [facility] Last Admin: 07/12/16 09:13 Dose: 10 mg Clonazepam (Klonopin -) 1 mg PO BID [facility] Last Admin: 07/12/16 09:12 Dose: 1 mg Docusate Sodium (Colace -) 300 mg PO HS [facility] Last Admin: 07/11/16 21:48 Dose: 300 mg Heparin Sodium (Porcine) (Heparin -) 5,000 unit SQ BID [facility] Last Admin: 07/12/16 09:12 Dose: 5,000 unit Insulin Aspart (Novolog Vial) 12 units SQ TIDAC [facility] Last Admin: 07/12/16 11:42 Dose: 12 units Lactobacillus Acidophilus (Bacid -) 1 tab PO BID [facility] Last Admin: 07/12/16 09:12 Dose: 1 tab Lisinopril (Prinivil) 5 mg PO DAILY [facility] Last Admin: 07/12/16 09:14 Dose: 5 mg Multivitamins/Minerals/Vitamin C (Tab-A-Vit -) 1 tab PO DAILY [facility] Last Admin: 07/12/16 09:15 Dose: 1 tab Oxycodone HCl (Roxicodone -) 10 mg PO Q4H PRN PRN Reason: PAIN Last Admin: 07/12/16 08:44 Dose: 10 mg Pantoprazole Sodium (Protonix -) 40 mg PO DAILY [facility] Last Admin: 07/12/16 09:14 Dose: 40 mg Polyethylene Glycol (Miralax (For Daily Use) -) 17 gm PO DAILY [facility] Last Admin: 07/12/16 09:13 Dose: Not Given Quetiapine Fumarate (Seroquel -) 200 mg PO HS [facility] Last Admin: 07/11/16 21:49 Dose: 200 mg Senna (Senna -) 2 tab PO DAILY [facility] Last Admin: 07/12/16 09:14 Dose: Not Given Silver Sulfadiazine (Silvadene -) 1 applic TP BID [facility] Last Admin: 07/12/16 09:15 Dose: Not Given - Objective Vital Signs: Vital Signs Temperature 97.8 F 07/12/16 09:38 Pulse Rate 65 07/12/16 09:38 Respiratory Rate 20 07/12/16 09:38 Blood Pressure 112/58 07/12/16 09:38 O2 Sat by Pulse Oximetry (%) 99 07/11/16 20:23 Eyes: Yes: WNL, Conjunctiva Clear, EOM Intact HENT: Yes: WNL, Atraumatic, Normocephalic Neck: Yes: WNL, Supple, Trachea Midline Cardiovascular: Yes: WNL, Regular Rate and Rhythm Respiratory: Yes: WNL, Regular, CTA Bilaterally Gastrointestinal: Yes: WNL, Normal Bowel Sounds Genitourinary: Yes: WNL Musculoskeletal: Yes: WNL Extremities: Yes: Amputation Edema: No Integumentary: Yes: WNL Neurological: Yes: WNL, Alert, Oriented ...Motor Strength: WNL Psychiatric: Yes: WNL Labs: CBC, BMP 07/11/16 08:28 07/11/16 07:25 INR, PTT INR 1.16 (0.82-1.09) H 07/02/16 12:40 Problem List - Problems (1) Chronic osteomyelitis involving lower leg Code(s): M86.669 - OTHER CHRONIC OSTEOMYELITIS, UNSPECIFIED TIBIA AND FIBULA (2) Diabetic ulcer of ankle associated with type 1 diabetes mellitus Code(s): E10.622 - TYPE 1 DIABETES MELLITUS WITH OTHER SKIN ULCER L97.309 - NON-PRESSURE CHRONIC ULCER OF UNSP ANKLE WITH UNSP SEVERITY (3) Closed head injury Code(s): S09.90XA - UNSPECIFIED INJURY OF HEAD, INITIAL ENCOUNTER (4) Osteomyelitis Code(s): M86.9 - OSTEOMYELITIS, UNSPECIFIED Qualifiers: Osteomyelitis location: foot Laterality: left Chronicity: chronic Qualified Code(s): M86.672 - Other chronic osteomyelitis, left ankle and foot (5) Pseudomonas aeruginosa infection Code(s): A49.8 - OTHER BACTERIAL INFECTIONS OF UNSPECIFIED SITE Assessment/Plan - Problems (1) Chronic osteomyelitis involving lower leg Assessment/Plan: S/p Lt BKA. Code(s): M86.669 - OTHER CHRONIC OSTEOMYELITIS, UNSPECIFIED TIBIA AND FIBULA (2) Diabetes Assessment/Plan: On Novolog. Diet modification; weight loss are important, but compliance has been difficult. He says he has lost several pounds since being in hospital. Code(s): E11.9 - TYPE 2 DIABETES MELLITUS WITHOUT COMPLICATIONS (3) HLD (hyperlipidemia) Assessment/Plan: on statin; total cholesterol 110 mg/dL , with LDL cholesterol 70 mg/dL on 02/10. Code(s): E78.5 - HYPERLIPIDEMIA, UNSPECIFIED (4) HTN (hypertension) Assessment/Plan: Changed nifedipine to lisinopril (HTN; DM); f/u serial BP, BUN/Cr and electrolytes (all presently WNL). Code(s): I10 - ESSENTIAL (PRIMARY) HYPERTENSION (5) Morbid obesity Assessment/Plan: diet modification, portion control. (Pt has done almost no exercise for years; blames it on neuropathy that started years before being diagnosed with DM, and espeically from LE issues he has been having). Code(s): E66.01 - MORBID (SEVERE) OBESITY DUE TO EXCESS CALORIES (6) [place] cardiac risk >20% in next 10 years Assessment/Plan: On statin. Started lisinopril. ECHO: normal LVEF; borderline LVH. Stress MIBI: small area of mild myocardial ischemia (base to apex). Aggressive control of lipids, glucose, BP, diet, weight. Physical rehabilitation post left BKA, with goal of regular aerobic exercise. Code(s): Z91.89 - OTH PERSONAL RISK FACTORS, NOT ELSEWHERE CLASSIFIED (7) Opioid dependence Assessment/Plan: On dilaudid pump since 2009 for "peripheral neuropathy: he has had since his 20s. He is calm now, but nurse reports he c/o 10/10 pain at times even with the pump and additional pain medications. +chronic constipation. He says he plans to discuss the possiblilty of gradually coming off of the pump with his production painter when he returns home. He says his is also in favor of this plan. Code(s): F11.20 - OPIOID DEPENDENCE, UNCOMPLICATED
[2016-07-12] MEDS ORDERED: TAMSULOSIN HCL 0.4 MG CAP.ER.24H (FP) PO SCH (13:15)
[2016-07-12 14:07] VITALS: PULSE 59
[2016-07-12] MEDS ORDERED: CEFAZOLIN (PRE-DOCKED) 50 ML IVPB SCH (18:00)
[2016-07-12] MEDS ORDERED: CEFAZOLIN 1 GM/D5W 50 ML IVPB SCH (18:00)
--- NOTE | 2016-07-12 19:28 | PN ---
Progress Note, Physician - Current Medication List Current Medications: Active Medications Acetaminophen (Tylenol -) 650 mg PO PRN [facility] Last Admin: 07/09/16 09:26 Dose: 650 mg Amino Acids (Prostat Sugar-Free Packet -) 30 ml PO TIDCM [facility] Last Admin: 07/12/16 17:54 Dose: Not Given Atorvastatin Calcium (Lipitor -) 10 mg PO DAILY [facility] Last Admin: 07/12/16 09:13 Dose: 10 mg Clonazepam (Klonopin -) 1 mg PO BID [facility] Last Admin: 07/12/16 09:12 Dose: 1 mg Docusate Sodium (Colace -) 300 mg PO HS [facility] Last Admin: 07/11/16 21:48 Dose: 300 mg Heparin Sodium (Porcine) (Heparin -) 5,000 unit SQ BID [facility] Last Admin: 07/12/16 09:12 Dose: 5,000 unit Insulin Aspart (Novolog Vial) 12 units SQ TIDAC [facility] Last Admin: 07/12/16 17:54 Dose: 12 units Lactobacillus Acidophilus (Bacid -) 1 tab PO BID [facility] Last Admin: 07/12/16 09:12 Dose: 1 tab Lisinopril (Prinivil) 5 mg PO DAILY [facility] Last Admin: 07/12/16 09:14 Dose: 5 mg Multivitamins/Minerals/Vitamin C (Tab-A-Vit -) 1 tab PO DAILY [facility] Last Admin: 07/12/16 09:15 Dose: 1 tab Oxycodone HCl (Roxicodone -) 10 mg PO Q4H PRN PRN Reason: PAIN Last Admin: 07/12/16 16:38 Dose: 10 mg Pantoprazole Sodium (Protonix -) 40 mg PO DAILY [facility] Last Admin: 07/12/16 09:14 Dose: 40 mg Polyethylene Glycol (Miralax (For Daily Use) -) 17 gm PO DAILY [facility] Last Admin: 07/12/16 09:13 Dose: Not Given Quetiapine Fumarate (Seroquel -) 200 mg PO HS [facility] Last Admin: 07/11/16 21:49 Dose: 200 mg Senna (Senna -) 2 tab PO DAILY [facility] Last Admin: 07/12/16 09:14 Dose: Not Given Silver Sulfadiazine (Silvadene -) 1 applic TP BID [facility] Last Admin: 07/12/16 09:15 Dose: Not Given Tamsulosin HCl (Flomax -) 0.4 mg PO DAILY@0830 [facility] Last Admin: 07/12/16 13:21 Dose: 0.4 mg - Objective Vital Signs: Vital Signs Temperature 97.8 F 07/12/16 14:00 Pulse Rate 59 L 07/12/16 14:00 Respiratory Rate 17 07/12/16 14:00 Blood Pressure 112/58 07/12/16 09:38 O2 Sat by Pulse Oximetry (%) 100 07/12/16 09:00 Labs: CBC, BMP 07/11/16 08:28 07/11/16 07:25 INR, PTT INR 1.16 (0.82-1.09) H 07/02/16 12:40 Problem List - Problems (1) Chronic osteomyelitis involving lower leg Code(s): M86.669 - OTHER CHRONIC OSTEOMYELITIS, UNSPECIFIED TIBIA AND FIBULA (2) Diabetes Code(s): E11.9 - TYPE 2 DIABETES MELLITUS WITHOUT COMPLICATIONS (3) HTN (hypertension) Code(s): I10 - ESSENTIAL (PRIMARY) HYPERTENSION (4) HLD (hyperlipidemia) Code(s): E78.5 - HYPERLIPIDEMIA, UNSPECIFIED (5) Morbid obesity Code(s): E66.01 - MORBID (SEVERE) OBESITY DUE TO EXCESS CALORIES
== END 2016-07-12 22:04 | DRG 617 ==
LOC: J6S 15:03
PROVIDERS: ADMIT Internal Medicine; ATTEND Internal Medicine
PROC: 30233N1 Transfusion of Nonautologous Red Blood Cells into Peripheral Vein, Percutaneous Approach (ICD-10-PCS; 2016-07-05)
PROC: 0Y6G0ZZ Detachment at Left Knee Region, Open Approach (ICD-10-PCS; principal; 2016-07-06 11:30)
DX: E11.69 Type 2 diabetes mellitus with other specified complication (principal); M86.672 Other chronic osteomyelitis, left ankle and foot; L97.429 Non-pressure chronic ulcer of left heel and midfoot with unspecified severity; F11.20 Opioid dependence, uncomplicated; E11.621 Type 2 diabetes mellitus with foot ulcer; Z79.4 Long term (current) use of insulin; I10 Essential (primary) hypertension; E78.5 Hyperlipidemia, unspecified; E11.42 Type 2 diabetes mellitus with diabetic polyneuropathy; E66.01 Morbid (severe) obesity due to excess calories; Z68.39 Body mass index [BMI] 39.0-39.9, adult; Z71.3 Dietary counseling and surveillance; T23.111A Burn of first degree of right thumb (nail), initial encounter; X11.8XXA Contact with other hot tap-water, initial encounter; Y92.230 Patient room in hospital as the place of occurrence of the external cause; K59.00 Constipation, unspecified
CPT/HCPCS: 36415; 73590-TC-LT; 78452-TC; 80053; 81003; 81015; 84443; 85025; 85610; 85651; 86140; 86850; 86900; 86901; 86922; 87086; 88307-TC; 88311-TC; 93005; 93010; 93017; 93306-TC; 94760; 97116-GP; 97162-PG; A9502; J1245; J1644; P9058

== ENCOUNTER 2018-04-09 15:42 | Inpatient (IN) | payer OTHER ==
--- NOTE | 2018-04-09 16:17 | PDOC ---
Rapid Medical Evaluation Time Seen by Provider: 04/09/18 16:15 Medical Evaluation: Allergies Allergy/AdvReac Type Severity Reaction Status Date / Time No Known Allergies Allergy Unverified 02/04/16 16:49 I have performed a brief in-person evaluation of this patient. The patient presents with a chief complaint of: wound on right buttock x [address] norwood for admission for worsening wound Pertinent physical exam findings: did not assess in triage I have ordered the following: labs The patient will proceed to the ED for further evaluation. Discharge Disposition - Diagnosis Wound infection - Referrals Referrals: Richard Sommers MD [Primary Care Provider] - - Patient Instructions - Post Discharge Activity
[2018-04-09] MEDS ORDERED: VANCOMYCIN 1 GRAM (PRE-DOCKED) 1,000 MG/250 ML BAG IVPB ONE ×2 (16:43→17:29)
[2018-04-09] MEDS ORDERED: PIPERACILLIN/TAZOB 4.5 GM 4.5 GM in DEXTROSE 5%-WATER 100 ML IVPB ONE ×2 (16:43→23:45)
[2018-04-09 17:29] LABS: BASO % 0.6 % (0-2.0); EOS % 2.7 % (0-4.5); HEMATOCRIT 36.4 % (35.4-49); HEMOGLOBIN 11.6 GM/dL (11.7-16.9); LYMPH % 15.7 % (8-40); MCH 26.7 pg (25.7-33.7); MCHC 31.7 g/dl (32.0-35.9); MEAN CELL VOLUME 84.3 fl (80-96); MEAN PLT VOLUME 8.1 fl (7.5-11.1); MONO % 6.5 % (3.8-10.2); NEUT % 74.5 % (42.8-82.8); PLATELET COUNT 148 K/MM3 (134-434); RBC 4.32 M/mm3 (4.00-5.60); RDW 14.4 % (11.9-15.9); WHITE BLOOD COUNT 5.1 K/mm3 (4.0-10.0)
[2018-04-09] MEDS ORDERED: PIPERACILLIN/TAZOB 4.5 GM 4.5 GM/100 ML BAG IVPB ONE (17:29)
--- NOTE | 2018-04-09 17:31 | PDOC ---
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 Wagner's office for infected R buttock wound. No fevers, chills, N/V/D, CP, SOB, abd pain, headache, focal weakness or numbness. - Physicial Exam PE: 04/09/18 17:29 agree with resident exam - Medical Decision Making 04/09/18 17:29 67yo M hx MMP including DM presents to the ED from wound care for admission for infected R buttock wound. Wound is unstagable, with surrounding erythema, overlying eshcar. In light of DM and his osteo, will cover empirically with Vanc /Zosyn and admit. Dr. Wagner consulted. 04/09/18 18:15 Case signed out to hospitalist by Dr. Jacome Case discussed in detail with admitting physician including history, physical exam and ancillary studies. Admitting physician has assumed care for the patient, will follow all pending diagnostics and will complete the evaluation and treatment.
--- NOTE | 2018-04-09 17:32 | PDOC ---
History of Present Illness - General Chief Complaint: Wound Stated Complaint: WOUND, BUTTOCKS Time Seen by Provider: 04/09/18 16:15 History Source: Patient Exam Limitations: No Limitations - History of Present Illness Initial Comments: 04/09/18 17:24 Patient is a 67M with medical history significant for DM, neuropathy, osteomyelitis s/p L BKA, neurogenic bladder here today complaining of one month of a wound to his right buttock. He states that he was sent by Dr Wagner's office for admission. Patient states that he also has an associated wound to his right leg that has been improving. Denies fevers, chills, nausea, vomiting. Denies chest pain, shortness of breath. Past History - Past Medical History Allergies/Adverse Reactions: Allergies Allergy/AdvReac Type Severity Reaction Status Date / Time No Known Allergies Allergy Unverified 04/09/18 16:22 Home Medications: Ambulatory Orders Amino Acids/Protein Hydrolys [Pro-Stat Sugar Free Liquid Pkt] 30 ml PO TID 06/30 Atorvastatin Calcium [Lipitor] 10 mg PO DAILY 06/30/16 Docusate Sodium [Colace -] 300 mg PO HS 06/30/16 Heparin - 5,000 unit SQ BID 06/30/16 Insulin Lispro [Humalog] 12 units SQ TID 06/30/16 Lactobacillus Acidophilus [Acidophilus] 1 each PO BID 06/30/16 Multivit-Min/Iron Fum/Folic AC [Kcfkc-Qkdnetn-Yrjclfzc Tablet] 1 each PO DAILY 06/30/16 Pantoprazole Sodium [Protonix -] 40 mg PO DAILY 06/30/16 Polyethylene Glycol 3350 [Miralax 119 gm Btl -] 17 gm PO PRN 06/30/16 Quetiapine Fumarate [Seroquel -] 200 mg PO HS 06/30/16 Sennosides [Senokot] 2 tab PO DAILY 06/30/16 clonazePAM [KlonoPIN -] 1 mg PO BID 06/30/16 Cephalexin Monohydrate [Keflex -] 500 mg PO Q6H #20 capsule 07/12/16 Lactobacillus Acidophilus [Bacid -] 1 tab PO BID tab 07/12/16 Lisinopril [Prinivil] 5 mg PO DAILY tablet 07/12/16 Polyethylene Glycol 3350 [Miralax 119 gm Btl -] 17 gm PO DAILY bottle 07/12/16 Polyethylene Glycol 3350 [Miralax 119 gm Btl -] 17 gm PO PRN bottle 07/12/16 Tamsulosin HCl [Flomax -] 0.4 mg PO DAILY@0830 cap.er.24h 07/12/16 COPD: No Diabetes: Yes (IDDM) Disorders: Yes (retention) HTN: Yes Hypercholesterolemia: Yes Psychiatric Problems: Yes (anxiety) - Suicide/Smoking/Psychosocial Hx Smoking History: Never smoked Have you smoked in the past 12 months: No Number of Cigarettes Smoked Daily: 0 Cigars Per Day: 0 Information on smoking cessation initiated: No 'Breaking Loose' booklet given: 06/30/16 Hx Alcohol Use: No Drug/Substance Use Hx: No Substance Use Type: None Hx Substance Use Treatment: No Review of Systems - Review of Systems Able to Perform ROS?: Yes Comments:: 04/09/18 17:39 GENERAL/CONSTITUTIONAL: No fever or chills. No weakness. HEAD, EYES, EARS, NOSE AND THROAT: No change in vision. No sore throat. CARDIOVASCULAR: No chest pain or shortness of breath RESPIRATORY: No cough, wheezing, or hemoptysis. GASTROINTESTINAL: No nausea, vomiting, diarrhea or constipation. GENITOURINARY: No dysuria, frequency, or change in urination. MUSCULOSKELETAL: No joint or muscle swelling or pain. No neck or back pain. SKIN: No rash, +ulcer NEUROLOGIC: No headache, vertigo, loss of consciousness, or change in strength/ sensation. ENDOCRINE: No increased thirst. No abnormal weight change HEMATOLOGIC/LYMPHATIC: No anemia, easy bleeding, or history of blood clots. ALLERGIC/IMMUNOLOGIC: No hives or skin allergy. *Physical Exam - Vital Signs Last Vital Signs Temp Pulse Resp BP Pulse Ox 99.2 F 96 H 20 171/86 H 100 04/09/18 16:20 04/09/18 16:20 04/09/18 16:20 04/09/18 16:20 04/09/18 16:20 - Physical Exam Comments: 04/09/18 17:42 GENERAL: Awake, alert, and fully oriented, in no acute distress HEAD: No signs of trauma, normocephalic, atraumatic EYES: PERRLA, EOMI, sclera anicteric, conjunctiva clear ENT: Auricles normal inspection, hearing grossly normal, nares patent, oropharynx clear without exudates. Moist mucosa NECK: Normal ROM, supple, no lymphadenopathy, JVD, or masses LUNGS: No distress, speaks full sentences, clear to auscultation bilaterally HEART: Regular rate and rhythm, normal S1 and S2, no murmurs, rubs or gallops, peripheral pulses normal and equal bilaterally. ABDOMEN: Soft, nontender, normoactive bowel sounds. No guarding, no rebound. No masses R BUTTOCK: 5x4cm unstageable ulcer on superior aspect, no extension towards midline, no evidence of abscess, thick black eschar, no drainage R LEG: Erythematous with swelling along anterior leg, +dp pulse, moving toes, pitting edema in foot L LEG: s/p BKA, no wound along stump NEUROLOGICAL: Cranial nerves II through XII grossly intact. Normal speech, no focal sensorimotor deficits SKIN: Warm, Dry, normal turgor, no rashes or lesions noted. Procedures - Bedside Ultrasound Other: US guided IV ED Treatment Course - LABORATORY CBC & Chemistry Diagram: 04/09/18 16:31 04/09/18 16:31 - RADIOLOGY Radiology Studies Ordered: Category Date Time Status CHEST X-RAY PORTABLE* [RAD] Stat Radiology 04/09/18 16:43 Taken Medical Decision Making - Medical Decision Making 04/09/18 17:48 Patient is a 67M with history of DM, neuropathy, BKA, neurogenic bladder here today with buttock wound and cellulitis to R leg. Vitals stable and normal. Blood cultures drawn. Will treat with vanc/zosyn. IV US placed. 04/09/18 18:02 CXR shows no acute cardiopulmonary process. 04/09/18 18:14 Laboratory Tests 04/09/18 04/09/18 16:31 16:31 WBC 5.1 Hgb 11.6 L Plt Count 148 BUN 17 Creatinine 1.1 Creat Clearance w eGFR > 60 Random Glucose 203 H Labs reassuring. Page out for admission. Patient to be admitted as he requires IV antibiotics for his care. 04/09/18 18:24 Accepted by Elysia Chavira for Dr Kaur. *DC/Admit/Observation/Transfer Diagnosis at time of Disposition: Wound infection - Discharge Dispostion Condition at time of disposition: Stable Decision to Admit order: Yes - Referrals Referrals: Richard Sommers MD [Primary Care Provider] - - Patient Instructions - Post Discharge Activity
[2018-04-09 17:55] LABS: ALBUMIN 3.6 g/dl (3.4-5.0); ALK PHOS 115 U/L (45-117); ANION GAP 6 MMOL/L (8-16); BILIRUBIN,TOTAL 0.4 mg/dL (0.2-1); BLOOD UREA NITROGEN 17 mg/dL (7-18); CALCIUM 8.9 mg/dL (8.5-10.1); CHLORIDE 98 mmol/L (98-107); CO2 33 mmol/L (21-32); CREATININE 1.1 mg/dL (0.55-1.3); GLUCOSE,RANDOM 203 mg/dL (74-106); POTASSIUM 4.3 mmol/L (3.5-5.1); SGOT/AST 31 U/L (15-37); SGPT/ALT 28 U/L (13-61); SODIUM 137 mmol/L (136-145); TOT PROT 7.6 g/dl (6.4-8.2)
[2018-04-09 18:18] LABS: URINE APPEARANCE CLEAR; URINE BILIRUBIN NEGATIVE (<2.0 mg/dL); URINE COLOR STRAW; URINE GLUCOSE (UA) NEGATIVE (NEGATIVE); URINE KETONE NEGATIVE (NEGATIVE); URINE LEUK ESTERASE 3+ (NEGATIVE); URINE NITRITE NEGATIVE (NEGATIVE); URINE PROTEIN NEGATIVE (NEGATIVE); URINE UROBILINOGEN NEGATIVE mg/dL (0.2-1.0)
[2018-04-09 18:43] LABS: URINE BACTERIA MODERATE /hpf (NONE SEEN); URINE MUCUS RARE
[2018-04-09 20:54] VITALS: BMI 41.4
[2018-04-09] MEDS ORDERED: QUEtiapine FUMARATE 25 MG TABLET (FP) ONE (20:58)
[2018-04-09] MEDS: HEPARIN NA (PORCINE) 5,000 UNITS/ML 1ML VIAL SQ SCH (21:06)
[2018-04-09] MEDS: clonazePAM 0.5 MG TABLET PO SCH (21:07)
[2018-04-09] MEDS: QUEtiapine FUMARATE 50 MG TABLET PO SCH (21:09)
[2018-04-09] MEDS: ATORVASTATIN CA 10 MG TABLET (FP) PO SCH (21:10)
[2018-04-09] MEDS: INSULIN (LEVEMIR) 100 UNITS/ML UNITS SQ SCH (21:10)
[2018-04-09] MEDS ORDERED: INSULIN (NOVOLOG) ASPART 100 UNITS/ML 10ML VIAL ONE (21:12)
[2018-04-09] MEDS: IBUPROFEN 400 MG TABLET (FP) PO SCH (21:16)
[2018-04-09] MEDS ORDERED: HEPARIN NA (PORCINE) 5,000 UNITS/ML 1ML VIAL SQ SCH (22:00)
[2018-04-09] MEDS: ZOLPIDEM TARTRATE 5 MG TABLET PO PRN (22:43)
--- NOTE | 2018-04-09 22:53 | HP ---
CHIEF COMPLAINT: Worsening diabetic ulcer to right buttocks PCP: Dr. Richard Sommers HISTORY OF PRESENT ILLNESS: 67 year old male with a PMH significant for DM, HTN, HLD, BPH, depression, neuropathy, osteomyelitis s/p L BKA, morbid obesity was set to the ED from Dr. Wagner's office for worsening wound to right buttocks. He has been treated at the wound clinic for a wound to his right lower leg. He reports the wound to his right lower leg has been improving, but the one to his right buttock is worsening. He denies fever, light-headedness, n/v/d, chest pain, or SOB. Upon admission to the ED, had a low grade temperature of 99.9, WBC WNL, Lactic acid negative, UA +3 esterase and 24 WBC. Patient was given a dose of Vancomycin and Zosyn in the ED. Recent Travel: No PAST MEDICAL HISTORY: IDDM chronic osteomyelitis HTN HLD BPH Depression/anxiety PAST SURGICAL HISTORY: Left BKA Cystoscopy/TURP Social History: Smoking: Former Alcohol: No Drugs: No Allergies No Known Allergies Allergy (Unverified 04/09/18 16:22) HOME MEDICATIONS: Home Medications Medication Instructions Recorded Atorvastatin Calcium [Lipitor] 10 mg PO DAILY 06/30/16 Multivit-Min/Iron Fum/Folic AC 1 each PO DAILY 06/30/16 [Mkjar-Kxlfbqb-Behesafh Tablet] Quetiapine Fumarate [Seroquel -] 50 mg PO PRN 06/30/16 clonazePAM [KlonoPIN -] 1 mg PO BID 06/30/16 Amlodipine Besylate 5 mg PO DAILY 04/09/18 Ibuprofen [Advil -] 600 mg PO TID 04/09/18 Insulin (Novolog) [Novolog] 20 units SQ TID 04/09/18 Insulin Detemir [Levemir Flextouch] 30 unit SQ BID 04/09/18 Lisinopril [Prinivil] 10 mg PO DAILY 04/09/18 Omeprazole 20 mg PO DAILY 04/09/18 Terazosin HCl 2 mg PO DAILY 04/09/18 Zolpidem Tartrate [Ambien] 20 mg PO HS 04/09/18 REVIEW OF SYSTEMS CONSTITUTIONAL: Absent: fever, chills, diaphoresis, generalized weakness, malaise, loss of appetite, weight change HEENT: Absent: rhinorrhea, nasal congestion, throat pain, throat swelling, difficulty swallowing, mouth swelling, ear pain, eye pain, visual changes CARDIOVASCULAR: Absent: chest pain, syncope, palpitations, irregular heart rate, lightheadedness , peripheral edema RESPIRATORY: Absent: cough, shortness of breath, dyspnea with exertion, orthopnea, wheezing, stridor, hemoptysis GASTROINTESTINAL: Absent: abdominal pain, abdominal distension, nausea, vomiting, diarrhea, constipation, melena, hematochezia GENITOURINARY: Absent: dysuria, frequency, urgency, hesitancy, hematuria, flank pain, genital pain MUSCULOSKELETAL: Absent: myalgia, arthralgia, joint swelling, back pain, neck pain SKIN: (+) Ulcer Absent: rash, itching, pallor HEMATOLOGIC/IMMUNOLOGIC: Absent: easy bleeding, easy bruising, lymphadenopathy, frequent infections ENDOCRINE: Absent: unexplained weight gain, unexplained weight loss, heat intolerance, cold intolerance NEUROLOGIC: (+) paresthesias Absent: headache, focal weakness or paresthesias, dizziness, unsteady gait, seizure, mental status changes, bladder or bowel incontinence PSYCHIATRIC: (+) anxiety, depression Absent: suicidal or homicidal ideation, hallucinations. PHYSICAL EXAMINATION Vital Signs - 24 hr 04/09/18 04/09/18 04/09/18 16:20 17:50 19:20 Temperature 99.2 F 99.9 F H Pulse Rate 96 H Pulse Rate [ 75 Radial] Respiratory 20 22 H Rate Blood Pressure 171/86 H Blood Pressure 140/70 [Right Arm] O2 Sat by Pulse 100 99 93 L Oximetry (%) 04/09/18 20:48 Temperature 99.1 F Pulse Rate 77 Pulse Rate [ Radial] Respiratory 19 Rate Blood Pressure 156/80 Blood Pressure [Right Arm] O2 Sat by Pulse Oximetry (%) GENERAL: Obese, awake, alert, and fully oriented, in no acute distress. HEAD: Normal with no signs of trauma. EYES: Pupils equal, round and reactive to light, extraocular movements intact, sclera anicteric, conjunctiva clear. No lid lag. EARS, NOSE, THROAT: Ears normal, nares patent, oropharynx clear without exudates. Moist mucous membranes. NECK: Normal range of motion, supple without lymphadenopathy, JVD, or masses. LUNGS: Breath sounds equal, clear to auscultation bilaterally. No wheezes, and no crackles. No accessory muscle use. HEART: Regular rate and rhythm, normal S1 and S2 without murmur, rub or gallop. ABDOMEN: Obese, soft, nontender, not distended, normoactive bowel sounds, no guarding, no rebound, no masses. No hepatomegaly or splenomegaly. MUSCULOSKELETAL: Normal range of motion at all joints. No bony deformities or tenderness. No CVA tenderness. UPPER EXTREMITIES: 2+ pulses, warm, well-perfused. No cyanosis. No clubbing. No peripheral edema. LOWER EXTREMITIES: Left BKA, redness to RLE with +2 pitting pedal edema. NEUROLOGICAL: No facial droop, tongue midline, normal speech. Normal gait. PSYCHIATRIC: Cooperative. Good eye contact. Appropriate mood and affect. SKIN: Warm, dry, normal turgor, normal capillary refill. Right buttock: 5 x 4 cm, round opening with 100% necrotic tissue, no drainage. Laboratory Results - last 24 hr 04/09/18 04/09/18 04/09/18 16:31 16:31 16:54 WBC 5.1 RBC 4.32 Hgb 11.6 L Hct 36.4 D MCV 84.3 MCH 26.7 MCHC 31.7 L RDW 14.4 D Plt Count 148 MPV 8.1 D Absolute Neuts (auto) 3.8 Neutrophils % 74.5 D Lymphocytes % 15.7 D Monocytes % 6.5 Eosinophils % 2.7 Basophils % 0.6 Nucleated RBC % 0 PT with INR INR Sodium 137 Potassium 4.3 Chloride 98 Carbon Dioxide 33 H Anion Gap 6 L BUN 17 Creatinine 1.1 Creat Clearance w eGFR > 60 POC Glucometer Random Glucose 203 H Lactic Acid Calcium 8.9 Total Bilirubin 0.4 AST 31 ALT 28 Alkaline Phosphatase 115 Total Protein 7.6 Albumin 3.6 Urine Color Straw Urine Appearance Clear Urine pH 7.0 D Ur Specific [place] 1.006 L Urine Protein Negative Urine Glucose (UA) Negative Urine Ketones Negative Urine Blood 1+ H Urine Nitrite Negative Urine Bilirubin Negative Urine Urobilinogen Negative Ur Leukocyte Esterase 3+ H D Urine WBC (Auto) 24 Urine RBC (Auto) 2 Urine Bacteria Moderate Urine Mucus Rare 04/09/18 04/09/18 04/09/18 16:54 16:54 21:05 WBC RBC Hgb Hct MCV MCH MCHC RDW Plt Count MPV Absolute Neuts (auto) Neutrophils % Lymphocytes % Monocytes % Eosinophils % Basophils % Nucleated RBC % PT with INR Cancelled INR Cancelled Sodium Potassium Chloride Carbon Dioxide Anion Gap BUN Creatinine Creat Clearance w eGFR POC Glucometer 224 Random Glucose Lactic Acid 1.7 Calcium Total Bilirubin AST ALT Alkaline Phosphatase Total Protein Albumin Urine Color Urine Appearance Urine pH Ur Specific [place] Urine Protein Urine Glucose (UA) Urine Ketones Urine Blood Urine Nitrite Urine Bilirubin Urine Urobilinogen Ur Leukocyte Esterase Urine WBC (Auto) Urine RBC (Auto) Urine Bacteria Urine Mucus CXR New scarring or atelectasis with persistently elevated right hemidiaphragm since 02/04/2016. ASSESSMENT/PLAN: 67 year old male with a PMH significant for DM, HTN, HLD, BPH, depression, neuropathy, osteomyelitis s/p L BKA, morbid obesity was set to the ED from Dr. Wagner's office for worsening wound to right buttocks. He is admitted for IV antibiotic treatment and wound care. Ulcer to right buttocks - Given vancomycin and zosyn in ed, continue zosyn q6h x 2 doses, appreciate ID consult - Daily wound care with Santyl - T&P q 2 hrs - Wound culture pending - ID consult ordered - Wound consult ordered UTI - UA +3 esterase, WBC 24 - On Zosyn - Urine culture pending IDDM - Levemir 30 U BID - Novolog 20 u SQ TID - Monitor glucose - Diabetic diet HTN - Amlodipine 5 mg qday - Monitor BP HLD - Atorvastatin 10 mg PO QHS BPH - Flomax 2 mg PO qday Depression/anxiety - Seroquel 50 mg PO QHS - Klonopin 1 mg BID Insomnia - Ambien 5 mg QHS PRN Morbid obesity - Dietary counselling FEN - PO intake adequate - Electrolytes replete as indicated - Diabetic diet Prophylaxis - DVT: Heparin SQ - GI: Protonix 20 mg PO qday Dispo: pt currently requires further inpatient care. FULL CODE Visit type - Emergency Visit Emergency Visit: Yes ED Registration Date: 04/09/18 Care time: The patient presented to the Emergency Department on the above date and was hospitalized for further evaluation of their emergent condition. - New Patient This patient is new to me today: Yes Date on this admission: 04/09/18 - Critical Care Critical Care patient: No
[2018-04-09] MEDS ORDERED: DEXTROSE 5%-WATER 100 ML IVPB ONE (23:46)
[2018-04-09] MEDS ORDERED: PIPERACILLIN/TAZOBACTAM 4.5 GM VIAL IVPB ONE (23:46)
[2018-04-10] MEDS ORDERED: DEXTROSE 5%-WATER 100 ML IVPB ONE (05:29)
[2018-04-10] MEDS ORDERED: PIPERACILLIN/TAZOBACTAM 4.5 GM VIAL IVPB ONE (05:29)
[2018-04-10] MEDS: HEPARIN NA (PORCINE) 5,000 UNITS/ML 1ML VIAL SQ SCH ×3 (05:40→21:21)
[2018-04-10] MEDS: IBUPROFEN 400 MG TABLET (FP) PO SCH ×3 (05:44→21:22)
[2018-04-10] MEDS ORDERED: PIPERACILLIN/TAZOB 4.5 GM 4.5 GM in DEXTROSE 5%-WATER 100 ML IVPB ONE (06:00)
[2018-04-10] MEDS: INSULIN (LEVEMIR) 100 UNITS/ML UNITS SQ SCH ×2 (06:16→21:26)
[2018-04-10] MEDS: INSULIN (NOVOLOG) ASPART 100 UNITS/ML 10ML VIAL SQ SCH ×3 (06:16→16:39)
[2018-04-10 07:53] LABS: HEMATOCRIT 31.3 % (35.4-49); HEMOGLOBIN 10.1 GM/dL (11.7-16.9); MCH 27.2 pg (25.7-33.7); MCHC 32.4 g/dl (32.0-35.9); MEAN PLT VOLUME 8.4 fl (7.5-11.1); PLATELET COUNT 125 K/MM3 (134-434); RBC 3.73 M/mm3 (4.00-5.60); RDW 14.4 % (11.9-15.9); WHITE BLOOD COUNT 3.3 K/mm3 (4.0-10.0)
[2018-04-10 08:39] LABS: ANION GAP 8 MMOL/L (8-16); BLOOD UREA NITROGEN 16 mg/dL (7-18); CALCIUM 8.1 mg/dL (8.5-10.1); CHLORIDE 100 mmol/L (98-107); CO2 32 mmol/L (21-32); GLUCOSE,RANDOM 112 mg/dL (74-106); MAGNESIUM 1.7 mg/dL (1.8-2.4); POTASSIUM 3.6 mmol/L (3.5-5.1); SODIUM 139 mmol/L (136-145)
--- NOTE | 2018-04-10 09:02 | PN ---
Progress Note, Physician History of Present Illness: 67 year old male with a PMH significant for DM, HTN, HLD, BPH, depression, neuropathy, osteomyelitis s/p L BKA, morbid obesity was set to the ED from Dr. Wagner's office for worsening wound to right buttocks. He has been treated at the wound clinic for a wound to his right lower leg. He reports the wound to his right lower leg has been improving, but the one to his right buttock is worsening. He denies fever, light-headedness, n/v/d, chest pain, or SOB. - Current Medication List Current Medications: Active Medications Amlodipine Besylate (Norvasc -) 5 mg PO DAILY [facility] Atorvastatin Calcium (Lipitor -) 10 mg PO HS [facility] Last Admin: 04/09/18 21:10 Dose: 10 mg Clonazepam (Klonopin -) 1 mg PO BID [facility] Last Admin: 04/09/18 21:07 Dose: 1 mg Collagenase (Santyl -) 1 applic TP DAILY [facility]; Protocol Heparin Sodium (Porcine) (Heparin -) 5,000 unit SQ TID [facility] Last Admin: 04/10/18 05:40 Dose: 5,000 unit Ibuprofen (Motrin -) 600 mg PO TID [facility] Last Admin: 04/10/18 05:44 Dose: 600 mg Influenza Virus Vaccine Quadrival (Flulaval Quad [id number]) 60 mcg IM .ONCE ONE Stop: 04/10/18 10:01 Insulin Aspart (Novolog Vial) 20 units SQ TIDAC [facility] Last Admin: 04/10/18 06:16 Dose: 20 units Insulin Detemir (Levemir Vial) 30 units SQ 0700,2200 [facility] Last Admin: 04/10/18 06:16 Dose: 30 units Lisinopril (Prinivil) 10 mg PO DAILY [facility] Multivitamins/Minerals/Vitamin C (Tab-A-Vit -) 1 tab PO DAILY [facility] Pantoprazole Sodium (Protonix -) 20 mg PO DAILY [facility] Quetiapine Fumarate (Seroquel -) 50 mg PO HS [facility] Last Admin: 04/09/18 21:09 Dose: 50 mg Terazosin HCl (Hytrin -) 2 mg PO DAILY [facility] Zolpidem Tartrate (Ambien -) 5 mg PO HS PRN PRN Reason: INSOMNIA Last Admin: 04/09/18 22:43 Dose: 5 mg - Objective Vital Signs: Vital Signs Temperature 98.6 F 04/10/18 06:00 Pulse Rate 76 04/10/18 06:00 Respiratory Rate 20 04/10/18 06:00 Blood Pressure 110/73 04/10/18 06:00 O2 Sat by Pulse Oximetry (%) 100 04/09/18 21:00 Cardiovascular: Yes: S1, S2 Respiratory: Yes: Regular, CTA Bilaterally Gastrointestinal: Yes: Normal Bowel Sounds, Soft, Abdomen, Obese Extremities: Yes: Amputation (let lle), Erythema (right leg) Edema: Yes Wound/Incision: Yes: Other (eschar on the back) Neurological: Yes: Alert, Oriented Labs: CBC, BMP 04/10/18 06:30 04/10/18 06:30 INR, PTT INR Cancelled 04/09/18 16:54 Problem List - Problems (1) Buttock wound Assessment/Plan: -IV ABX -ID AND SURGICAL CONSULTS -WOUND CARE Code(s): S31.809A - UNSPECIFIED OPEN WOUND OF UNSPECIFIED BUTTOCK, INIT ENCNTR Qualifiers: Laterality: right (2) Cellulitis Assessment/Plan: -IV ABX Code(s): L03.90 - CELLULITIS, UNSPECIFIED Qualifiers: Site of cellulitis: extremity Site of cellulitis of extremity: lower extremity Laterality: right Qualified Code(s): L03.115 - Cellulitis of right lower limb (3) Neuropathy Assessment/Plan: -CHRONIC Code(s): G62.9 - POLYNEUROPATHY, UNSPECIFIED (4) Diabetes Assessment/Plan: -BGM -ENDO Code(s): E11.9 - TYPE 2 DIABETES MELLITUS WITHOUT COMPLICATIONS (5) Morbid obesity Code(s): E66.01 - MORBID (SEVERE) OBESITY DUE TO EXCESS CALORIES (6) Electrolyte abnormality Assessment/Plan: -REPLACE AND MONITOR Code(s): E87.8 - OTH DISORDERS OF ELECTROLYTE AND FLUID BALANCE, NEC (7) Anemia Assessment/Plan: -W/U ORDERED Code(s): D64.9 - ANEMIA, UNSPECIFIED
--- NOTE | 2018-04-10 09:58 | CON.ID ---
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, noted to have a right buttock ulcer by the visiting nurse, seen by Dr Sommers who referred him to wound care- wound care sent him to ED no fevers no chills some erythema of RLE that has been improving with silvadene reports was unable to void- went to see urologist, wheelchair could not fit through the door, was referred to [place] ED had elizabeth placed, never followed up with urology, elizabeth never changed per patient urologist Dr Sharon yanez/neurologist dr malone - History Source History Provided By: Patient, Medical Record Limitations to Obtaining History: Poor Historian (poor recall for dates) - Past Medical History 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 Place of : [facility] History of Recent Travel: No Home Medications - Allergies Allergies/Adverse Reactions: Allergies Allergy/AdvReac Type Severity Reaction Status Date / Time No Known Allergies Allergy Unverified 04/09/18 16:22 - Home Medications Home Medications: Ambulatory Orders Atorvastatin Calcium [Lipitor] 10 mg PO DAILY 06/30/16 Multivit-Min/Iron Fum/Folic AC [Qxckn-Wjmtxen-Hceudaod Tablet] 1 each PO DAILY 06/30/16 Quetiapine Fumarate [Seroquel -] 50 mg PO PRN 06/30/16 clonazePAM [KlonoPIN -] 1 mg PO BID 06/30/16 Amlodipine Besylate 5 mg PO DAILY 04/09/18 Ibuprofen [Advil -] 600 mg PO TID 04/09/18 Insulin (Novolog) [Novolog] 20 units SQ TID 04/09/18 Insulin Detemir [Levemir Flextouch] 30 unit SQ BID 04/09/18 Lisinopril [Prinivil] 10 mg PO DAILY 04/09/18 Omeprazole 20 mg PO DAILY 04/09/18 Terazosin HCl 2 mg PO DAILY 04/09/18 Zolpidem Tartrate [Ambien] 20 mg PO HS 04/09/18 Family Disease History - Family Disease History Family Disease History: CA: Mother (leukemia) Review of Systems - Review of Systems Constitutional: reports: No Symptoms Eyes: reports: No Symptoms. denies: Blind Spots, Blurred Vision HENT: reports: No Symptoms Neck: reports: No Symptoms Cardiovascular: reports: No Symptoms. denies: Chest Pain Respiratory: reports: No Symptoms. denies: Cough Gastrointestinal: reports: No Symptoms Genitourinary: reports: No Symptoms Physical Exam Vital Signs: Vital Signs Temperature 98.6 F 04/10/18 06:00 Pulse Rate 76 04/10/18 06:00 Respiratory Rate 20 04/10/18 06:00 Blood Pressure 110/73 04/10/18 06:00 O2 Sat by Pulse Oximetry (%) 100 04/09/18 21:00 Constitutional: Yes: Well Nourished, No Distress, Calm, Obese Eyes: Yes: Conjunctiva Clear, EOM Intact HENT: Yes: Atraumatic, Normocephalic Neck: Yes: Supple, Trachea Midline Cardiovascular: Yes: Regular Rate and Rhythm Respiratory: Yes: Regular, CTA Bilaterally Gastrointestinal: Yes: Normal Bowel Sounds, Soft, Other (pump LLQ) Renal/: Yes: Elizabeth Present Extremities: Yes: Amputation (left- well healed right foot with erythema and warmth) Edema: Yes Edema: RLE: 1+ Peripheral Pulses WNL: Yes Wound/Incision: Yes: Other (dry eschar 4 by 4 cm- no drainage, no odor, no cellulitis) Psychiatric: Yes: Alert, Oriented Labs: CBC, BMP 04/10/18 06:30 04/10/18 06:30 Imaging - Results Chest X-ray: Report Reviewed, Image Reviewed Problem List - Problems (1) Buttock wound Code(s): S31.809A - UNSPECIFIED OPEN WOUND OF UNSPECIFIED BUTTOCK, INIT ENCNTR Qualifiers: Laterality: right (2) Cellulitis Code(s): L03.90 - CELLULITIS, UNSPECIFIED Qualifiers: Site of cellulitis: extremity Site of cellulitis of extremity: lower extremity Laterality: right Qualified Code(s): L03.115 - Cellulitis of right lower limb (3) Diabetes Code(s): E11.9 - TYPE 2 DIABETES MELLITUS WITHOUT COMPLICATIONS (4) Neuropathy Code(s): G62.9 - POLYNEUROPATHY, UNSPECIFIED Assessment/Plan doubt infected buttock wound- awaiting surgical eval, no drainage, no cellulitis +eschar RLE cellulitis- can switch to cefazolin, po keflex when ready for discharge chronic elizabeth- consider urology evaluation and elizabeth change DM Neuropathy
[2018-04-10] MEDS: PANTOPRAZOLE 20 MG TABLET (FP) PO SCH (10:00)
[2018-04-10] MEDS: clonazePAM 0.5 MG TABLET PO SCH ×2 (10:00→21:22)
[2018-04-10] MEDS ORDERED: COLLAGENASE CLOSTRIDIUM HIST. 30 GRAMS TUBE TP SCH (10:00)
[2018-04-10] MEDS ORDERED: FLU VACCINE QUAD 60 MCG/0.5 ML (MDV 18-19) IM ONE (10:00)
[2018-04-10] MEDS: LISINOPRIL 5 MG TABLET (FP) PO SCH (10:00)
[2018-04-10] MEDS: amLODIPine BESYLATE 5 MG TABLET (FP) PO SCH (10:00)
[2018-04-10] MEDS: MULTIVITAMINS (DAILY MVI) TABLET (FP) PO SCH (10:00)
[2018-04-10] MEDS ORDERED: POTASSIUM CHLORIDE TABS 20 MEQ TABLET.ER (FP) PO ONE (11:00)
[2018-04-10] MEDS ORDERED: MAGNESIUM SULF 50% (8.12 MEQ/2 ML-1 GM VIAL) IVPB ONE (11:00)
[2018-04-10] MEDS: ceFAZolin 2 GRAM PREMIX BAG IVPB SCH ×2 (11:18→17:34)
[2018-04-10] MEDS: TERAZOSIN HCL 2 MG CAPSULE PO SCH (11:18)
--- NOTE | 2018-04-10 11:32 | EKG ---
Test Reason : Blood Pressure : / mmHG Vent. Rate : 092 BPM Atrial Rate : 092 BPM P-R Int : 160 ms QRS Dur : 092 ms QT Int : 374 ms P-R-T Axes : 035 -38 050 degrees QTc Int : 462 ms NORMAL SINUS RHYTHM LEFT AXIS DEVIATION VOLTAGE CRITERIA FOR LEFT VENTRICULAR HYPERTROPHY ABNORMAL ECG WHEN COMPARED WITH ECG OF 03-JUL-2016 09:17, NO SIGNIFICANT CHANGE WAS FOUND Confirmed by CINDA LEWIS, EMERSON ([id number]) on 04/10/2018 11:32:18 AM Referred By: Confirmed By:EMERSON LOO MD
--- NOTE | 2018-04-10 12:27 | CONSULT ---
- Consultation REQUESTING PROVIDER: CONSULT REQUEST: We have been asked to surgically evaluate this patient for ( specify). PCP:Richard Sommers HISTORY OF PRESENT ILLNESS: 67 y/o M w/ PMHx DM, HTN, HLD, BPH, depression, neuropathy, h/o osteomyelitis s/ p L BKA (Dr Wagner, 07/06/16), morbid obesity now sent from Dr Rod office for admission for R buttock ulcer. Pt states he has not been ambulatory in months due to issues with insurance obtaining a prosthesis for his L BKA. Currently ambulates in a wheelchair. Reports buttock ulcer has been present for the past few weeks, unsure of time frame due to his neuropathy. Pt is followed in wound care clinic by Dr Wagner for prior ulcers to his rle which have healed. Reports allevyn for dressings to right buttock ulcer. Denies fevers/chills, n/v/d, drainage from buttock ulcer. At baseline pt lives home with his who cares for him. Spends most of day in wheelchair. Of note pt has a chronic elizabeth in place which he states was placed by his urologist 4-5 months ago and has not been exchanged as his Urologists office is not handicap accessible and pt reports inability to f/u. PMHx: as above PSHx: b/l tkr, L bka (2017), pain pump Home Medications Medication Instructions Recorded Atorvastatin Calcium [Lipitor] 10 mg PO DAILY 06/30/16 Multivit-Min/Iron Fum/Folic AC 1 each PO DAILY 06/30/16 [Tgaop-Urcggli-Mjrxosdm Tablet] Quetiapine Fumarate [Seroquel -] 50 mg PO PRN 06/30/16 clonazePAM [KlonoPIN -] 1 mg PO BID 06/30/16 Amlodipine Besylate 5 mg PO DAILY 04/09/18 Ibuprofen [Advil -] 600 mg PO TID 04/09/18 Insulin (Novolog) [Novolog] 20 units SQ TID 04/09/18 Insulin Detemir [Levemir Flextouch] 30 unit SQ BID 04/09/18 Lisinopril [Prinivil] 10 mg PO DAILY 04/09/18 Omeprazole 20 mg PO DAILY 04/09/18 Terazosin HCl 2 mg PO DAILY 11/13/18 Zolpidem Tartrate [Ambien] 20 mg PO HS 04/09/18 Allergies Allergy/AdvReac Type Severity Reaction Status Date / Time No Known Allergies Allergy Unverified 04/09/18 16:22 REVIEW OF SYSTEMS: CONSTITUTIONAL: Absent: fever, chills, diaphoresis CARDIOVASCULAR: Absent: chest pain, syncope RESPIRATORY: Absent: cough, shortness of breath PHYSICAL EXAM: GENERAL: Awake, alert, and fully oriented, in no acute distress. HEAD: Normal with no signs of trauma. Buttocks: R lateral buttock with approximately 4x3cm soft eschar noted with no surrounding erythema, no fluctuance, no crepitus, no ttp. LOWER EXTREMITIES: L bka stump well healed no ulcerations noted, no erythema. RLE with nearly circumferential hyperpigmentation with mild overlying erythema, slightly increased warmth. Multiple small superficial scabs present. No drainage noted. 2+ pitting edema to mid calf. Vasc: palpable dp RLE Vital Signs Temperature 98.3 F 04/10/18 10:00 Pulse Rate 73 04/10/18 10:00 Respiratory Rate 18 04/10/18 10:00 Blood Pressure 120/60 04/10/18 10:00 O2 Sat by Pulse Oximetry (%) 95 04/10/18 10:00 Lab Results WBC 3.3 K/mm3 (4.0-10.0) L 04/10/18 06:30 RBC 3.73 M/mm3 (4.00-5.60) L 04/10/18 06:30 Hgb 10.1 GM/dL (11.7-16.9) L 04/10/18 06:30 Hct 31.3 % (35.4-49) L 04/10/18 06:30 MCV 84.0 fl (80-96) 04/10/18 06:30 MCHC 32.4 g/dl (32.0-35.9) 04/10/18 06:30 RDW 14.4 % (11.9-15.9) 04/10/18 06:30 Plt Count 125 K/MM3 (134-434) L 04/10/18 06:30 Sodium 139 mmol/L (136-145) 04/10/18 06:30 Potassium 3.6 mmol/L (3.5-5.1) 04/10/18 06:30 Chloride 100 mmol/L (98-107) 04/10/18 06:30 Carbon Dioxide 32 mmol/L (21-32) 04/10/18 06:30 Anion Gap 8 MMOL/L (8-16) 04/10/18 06:30 BUN 16 mg/dL (7-18) 04/10/18 06:30 Creatinine 1.0 mg/dL (0.55-1.3) 04/10/18 06:30 Random Glucose 112 mg/dL (74-106) H 04/10/18 06:30 Calcium 8.1 mg/dL (8.5-10.1) L 04/10/18 06:30 INR Cancelled 04/09/18 16:54 A/P: 67 y/o M w/ PMHx DM, HTN, HLD, BPH, depression, neuropathy, h/o osteomyelitis s/p L BKA (Dr Wagner, 07/06/16), morbid obesity now sent from Dr Rod office for admission for R buttock ulcer. 4x3cm right buttock unstageable ulcer. Does not appear clinically infected at this time. Pt afebrile, VSS, no leukocytosis -Clean sacral ulcer with normal saline and apply Santyl ointment (do not apply on healthy tissue) and cover with damp to dry 4x4 -Reposition every two hours while in bed -Air mattress recommended -Use drawsheets and Trendelenburg when repositioning to reduce friction and shear -Manageincontinence via timely cleansing, use of appropriate incontinence disposables and use of barrier ointment to intact skin -Ensure adequate hydration/nutrition, supplementation per primary team -Ensure off-loading to all bony areas (heels, ankles, hips and tailbone) with Allevyn/Optifoam -Will follow while in house will d/w attending Dr Wagner
[2018-04-10] MEDS: COLLAGENASE CLOSTRIDIUM HIST. 30 GRAMS TUBE TP SCH (12:46)
[2018-04-10] MEDS ORDERED: QUEtiapine FUMARATE 25 MG TABLET (FP) ONE (20:45)
[2018-04-10] MEDS: ATORVASTATIN CA 10 MG TABLET (FP) PO SCH (21:21)
[2018-04-10] MEDS: QUEtiapine FUMARATE 50 MG TABLET PO SCH (21:21)
[2018-04-10] MEDS: ZOLPIDEM TARTRATE 5 MG TABLET PO PRN (22:32)
--- NOTE | 2018-04-10 23:50 | CONSULT ---
Consult Consult Specialty:: endocrine Referred by:: [email or web address] pate Reason for Consultation:: diabetes mellitus diabetic neuropathy - History of Present Illness Chief Complaint: pain in limbs and high sugars History of Present Illness: 67 year old male with a PMH significant for DM,X 20 years, HTN, HLD, BPH, depression, neuropathy, osteomyelitis s/p L BKA, morbid obesity was set to the ED from Dr. Wagner's office for worsening wound to right buttocks. He has been treated at the wound clinic for a wound to his right lower leg. He reports the wound to his right lower leg has been improving, but the one to his right buttock is worsening. He suffers from diabetic neuropathy,and difficulty with control of blood sugars. 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 History of Recent Travel: No Home Medications - Allergies Allergies/Adverse Reactions: Allergies Allergy/AdvReac Type Severity Reaction Status Date / Time No Known Allergies Allergy Unverified 04/09/18 16:22 - Home Medications Home Medications: Ambulatory Orders Atorvastatin Calcium [Lipitor] 10 mg PO DAILY 06/30/16 Multivit-Min/Iron Fum/Folic AC [Qttpw-Syjstmc-Ymfqrjwr Tablet] 1 each PO DAILY 06/30/16 Quetiapine Fumarate [Seroquel -] 50 mg PO PRN 06/30/16 clonazePAM [KlonoPIN -] 1 mg PO BID 06/30/16 Amlodipine Besylate 5 mg PO DAILY 04/09/18 Ibuprofen [Advil -] 600 mg PO TID 04/09/18 Insulin (Novolog) [Novolog] 20 units SQ TID 04/09/18 Insulin Detemir [Levemir Flextouch] 30 unit SQ BID 04/09/18 Lisinopril [Prinivil] 10 mg PO DAILY 04/09/18 Omeprazole 20 mg PO DAILY 04/09/18 Terazosin HCl 2 mg PO DAILY 04/09/18 Zolpidem Tartrate [Ambien] 20 mg PO HS 04/09/18 Family Disease History - Family Disease History Family Disease History: CA: Mother (leukemia) Review of Systems - Review of Systems Constitutional: reports: Weakness Eyes: reports: Blurred Vision HENT: reports: No Symptoms Neck: reports: No Symptoms Cardiovascular: reports: Shortness of Breath Respiratory: reports: Exercise Intolerance, SOB on Exertion Gastrointestinal: reports: Bloating Breasts: reports: No Symptoms Reported Musculoskeletal: reports: Extremity Pain, Joint Swelling, Muscle Cramps, Muscle Weakness Neurological: reports: Numbness, Unsteady Gait, Weakness Endocrine: reports: Unexplained Weight Gain Physical Exam Vital Signs: Vital Signs Temperature 97.0 F L 04/10/18 18:00 Pulse Rate 80 04/10/18 18:00 Respiratory Rate 20 04/10/18 18:00 Blood Pressure 159/63 04/10/18 18:00 O2 Sat by Pulse Oximetry (%) 95 04/10/18 20:29 Constitutional: Yes: Anxious Eyes: Yes: EOM Intact HENT: Yes: Normocephalic Neck: Yes: Trachea Midline Cardiovascular: Yes: Regular Rate and Rhythm Respiratory: Yes: CTA Bilaterally Gastrointestinal: Yes: Normal Bowel Sounds ...Rectal Exam: Yes: Deferred Renal/: Yes: WNL Musculoskeletal: Yes: Back Pain, Joint Swelling, Muscle Pain Extremities: Yes: Amputation Edema: Yes Edema: RLE: Trace Peripheral Pulses WNL: Yes Neurological: Yes: Alert, Oriented, Loss of Sensation, Numbness, Weakness Labs: CBC, BMP 04/10/18 06:30 04/10/18 06:30 Problem List - Problems (1) Diabetes mellitus with hyperosmolarity Code(s): E11.00 - TYPE 2 DIAB W HYPROSM W/O NONKET HYPRGLY-HYPROS COMA ([facility]) (2) Anemia Code(s): D64.9 - ANEMIA, UNSPECIFIED Qualifiers: Anemia type: B12 deficiency (3) Buttock wound Code(s): S31.809A - UNSPECIFIED OPEN WOUND OF UNSPECIFIED BUTTOCK, INIT ENCNTR Qualifiers: Laterality: right (4) Cellulitis Code(s): L03.90 - CELLULITIS, UNSPECIFIED Qualifiers: Site of cellulitis: extremity Site of cellulitis of extremity: lower extremity Laterality: right Qualified Code(s): L03.115 - Cellulitis of right lower limb (5) Electrolyte abnormality Code(s): E87.8 - OTH DISORDERS OF ELECTROLYTE AND FLUID BALANCE, NEC (6) Neuropathy Code(s): G62.9 - POLYNEUROPATHY, UNSPECIFIED (7) Wound infection Code(s): T14.8XXA - OTHER INJURY OF UNSPECIFIED BODY REGION, INITIAL ENCOUNTER; L08.9 - LOCAL INFECTION OF THE SKIN AND SUBCUTANEOUS TISSUE, UNSP (8) Below knee amputation status Code(s): Z89.519 - ACQUIRED ABSENCE OF UNSPECIFIED LEG BELOW KNEE Qualifiers: Laterality: left Qualified Code(s): Z89.512 - Acquired absence of left leg below knee Assessment/Plan Current Active Problems Anemia (Acute) Buttock wound (Acute) Cellulitis (Acute) Electrolyte abnormality (Acute) Neuropathy (Acute) Wound infection (Acute) diabetic type 2 neuropathy/diabetic Abnormal Lab Results 04/10/18 04/10/18 06:30 06:30 WBC 3.3 L RBC 3.73 L Hgb 10.1 L Hct 31.3 L Plt Count 125 L Random Glucose 112 H Calcium 8.1 L Magnesium 1.7 L Laboratory Results - last 24 hr 04/10/18 04/10/18 04/10/18 05:49 06:30 06:30 WBC 3.3 L RBC 3.73 L Hgb 10.1 L Hct 31.3 L MCV 84.0 MCH 27.2 MCHC 32.4 RDW 14.4 Plt Count 125 L MPV 8.4 Sodium 139 Potassium 3.6 Chloride 100 Carbon Dioxide 32 Anion Gap 8 BUN 16 Creatinine 1.0 Creat Clearance w eGFR > 60 POC Glucometer 170 Random Glucose 112 H Calcium 8.1 L Magnesium 1.7 L 04/10/18 04/10/18 04/10/18 11:29 16:38 21:24 WBC RBC Hgb Hct MCV MCH MCHC RDW Plt Count MPV Sodium Potassium Chloride Carbon Dioxide Anion Gap BUN Creatinine Creat Clearance w eGFR POC Glucometer 110 112 221 Random Glucose Calcium Magnesium plan: bgm qid novolog scale levemir 30 units bid ck hb aic nutrition consult podiatry
[2018-04-11] MEDS: ceFAZolin 2 GRAM PREMIX BAG IVPB SCH ×3 (01:15→18:41)
[2018-04-11] MEDS: IBUPROFEN 400 MG TABLET (FP) PO SCH ×3 (06:17→22:56)
[2018-04-11] MEDS: HEPARIN NA (PORCINE) 5,000 UNITS/ML 1ML VIAL SQ SCH ×3 (06:17→23:00)
[2018-04-11] MEDS: INSULIN SLIDING SCALE (NOVOLOG) 1 VIAL SQ SCH ×4 (06:21→22:59)
[2018-04-11] MEDS: INSULIN (LEVEMIR) 100 UNITS/ML UNITS SQ SCH ×2 (06:40→23:00)
[2018-04-11 08:07] LABS: BASO % 0.9 % (0-2.0); EOS % 9.7 % (0-4.5); HEMATOCRIT 32.3 % (35.4-49); HEMOGLOBIN 10.5 GM/dL (11.7-16.9); LYMPH % 27.2 % (8-40); MCH 27.3 pg (25.7-33.7); MCHC 32.4 g/dl (32.0-35.9); MEAN CELL VOLUME 84.3 fl (80-96); MEAN PLT VOLUME 8.2 fl (7.5-11.1); MONO % 8.3 % (3.8-10.2); NEUT % 53.9 % (42.8-82.8); PLATELET COUNT 122 K/MM3 (134-434); RBC 3.83 M/mm3 (4.00-5.60); RDW 14.5 % (11.9-15.9); WHITE BLOOD COUNT 2.7 K/mm3 (4.0-10.0)
[2018-04-11 08:24] LABS: ALBUMIN 2.8 g/dl (3.4-5.0); ALK PHOS 96 U/L (45-117); ANION GAP 6 MMOL/L (8-16); BILIRUBIN,TOTAL 0.3 mg/dL (0.2-1); BLOOD UREA NITROGEN 18 mg/dL (7-18); CALCIUM 8.2 mg/dL (8.5-10.1); CHLORIDE 101 mmol/L (98-107); CO2 31 mmol/L (21-32); CREATININE 1.2 mg/dL (0.55-1.3); GLUCOSE,RANDOM 115 mg/dL (74-106); POTASSIUM 4.1 mmol/L (3.5-5.1); SGOT/AST 22 U/L (15-37); SGPT/ALT 20 U/L (13-61); SODIUM 139 mmol/L (136-145); TOT PROT 6.2 g/dl (6.4-8.2)
[2018-04-11] MEDS: MULTIVITAMINS (DAILY MVI) TABLET (FP) PO SCH (09:18)
[2018-04-11] MEDS: PANTOPRAZOLE 20 MG TABLET (FP) PO SCH (09:18)
[2018-04-11] MEDS: clonazePAM 0.5 MG TABLET PO SCH ×2 (09:18→22:55)
[2018-04-11] MEDS: LISINOPRIL 5 MG TABLET (FP) PO SCH (09:18)
[2018-04-11] MEDS: amLODIPine BESYLATE 5 MG TABLET (FP) PO SCH (09:19)
[2018-04-11] MEDS: TERAZOSIN HCL 2 MG CAPSULE PO SCH (09:19)
[2018-04-11] MEDS: COLLAGENASE CLOSTRIDIUM HIST. 30 GRAMS TUBE TP SCH (09:19)
--- NOTE | 2018-04-11 10:38 | CONSULT ---
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 History of Recent Travel: No Home Medications - Allergies Allergies/Adverse Reactions: Allergies Allergy/AdvReac Type Severity Reaction Status Date / Time No Known Allergies Allergy Unverified 04/09/18 16:22 - Home Medications Home Medications: Ambulatory Orders Atorvastatin Calcium [Lipitor] 10 mg PO DAILY 06/30/16 Multivit-Min/Iron Fum/Folic AC [Iyrdw-Gxkpfnq-Xdirgafz Tablet] 1 each PO DAILY 06/30/16 Quetiapine Fumarate [Seroquel -] 50 mg PO PRN 06/30/16 clonazePAM [KlonoPIN -] 1 mg PO BID 06/30/16 Amlodipine Besylate 5 mg PO DAILY 04/09/18 Ibuprofen [Advil -] 600 mg PO TID 04/09/18 Insulin (Novolog) [Novolog] 20 units SQ TID 04/09/18 Insulin Detemir [Levemir Flextouch] 30 unit SQ BID 04/09/18 Lisinopril [Prinivil] 10 mg PO DAILY 04/09/18 Omeprazole 20 mg PO DAILY 04/09/18 Terazosin HCl 2 mg PO DAILY 04/09/18 Zolpidem Tartrate [Ambien] 20 mg PO HS 04/09/18 Family Disease History - Family Disease History Family Disease History: CA: Mother (leukemia) Physical Exam Vital Signs: Vital Signs Temperature 98.6 F 04/11/18 05:24 Pulse Rate 62 04/11/18 05:24 Respiratory Rate 20 04/11/18 05:24 Blood Pressure 146/70 04/11/18 05:24 O2 Sat by Pulse Oximetry (%) 96 04/11/18 10:00 Extremities: Yes: Other (bka left, +elongated hypertrophic nails x 5 right, + erythema dorsum of foot, +cellulitis distal leg, -portal of entry of foot,) Labs: CBC, BMP 04/11/18 06:30 04/11/18 06:30 Assessment/Plan elongated nails erythema Discusssed foot care. Advised that his should not be cutting his nails. Should follow up with a dictionary editor. Ammonium lactate BID to right foot.
[2018-04-11] MEDS ORDERED: INSULIN (NOVOLOG) ASPART 100 UNITS/ML 10ML VIAL ONE (10:53)
--- NOTE | 2018-04-11 12:47 | PN ---
Progress Note (short form) - Note Progress Note: Pt seen for f/u. Collagenase ointment ordered yesterday and applied to right buttock ulcer. Ulcer stable, however appears to have start of stage 1 sacral ulcer. Extensive conversation with pt regarding need for frequent repositioning while in bed. D/W RN who will remind/assist pt. Optifoam recommended to sacral area Continue collagenase Will continue to follow d/w attending Dr Wagner
[2018-04-11] MEDS ORDERED: MINERAL OIL 30 ML UNIT-DOSE CUP PO ONE (13:50)
--- NOTE | 2018-04-11 14:10 | PROC ---
Procedure Note Procedure: difficult elizabeth change [id number] paient with an indwelling elizabeth for the last four years. Unable to deflate the balloon. end of elizabeth cut off mineral oil injected into the balloon port balloon delated. 18 slovak coude tip cath placed with clear output. \ follow up as outpatient in four weeks.
[2018-04-11] MEDS ORDERED: oxyCODONE HCL 5 MG TABLET PO ONE (14:11)
--- NOTE | 2018-04-11 16:44 | PN ---
Progress Note (short form) - Note Progress Note: no fevers elizabeth changed today Vital Signs Period Temp Pulse Resp BP Sys/Gardner Pulse Ox Last 24 Hr 97.0 F-98.6 F 54-80 18-20 144-159/63-70 95-96 cor-rrr lungs clear abd soft,nt ext left bka well healed right LE with erythema CBC, BMP 04/11/18 06:30 04/11/18 06:30 Microbiology 04/09/18 16:54 Urine - Urine Clean Catch Urine Culture - Final Contaminated: Please Repeat 04/09/18 16:31 Blood - Peripheral Venous Blood Culture - Preliminary NO GROWTH OBTAINED AFTER 24 HOURS, INCUBATION TO CONTINUE FOR 4 DAYS. 04/09/18 16:31 Blood - Peripheral Venous Blood Culture - Preliminary NO GROWTH OBTAINED AFTER 24 HOURS, INCUBATION TO CONTINUE FOR 4 DAYS. a/p cellulitis versus venous stasis dermatitis- can switch to po keflex in am sacral ulcer- per Dr Wagner please call back if needed Problem List - Problems (1) Buttock wound Code(s): S31.809A - UNSPECIFIED OPEN WOUND OF UNSPECIFIED BUTTOCK, INIT ENCNTR Qualifiers: Laterality: right (2) Cellulitis Code(s): L03.90 - CELLULITIS, UNSPECIFIED Qualifiers: Site of cellulitis: extremity Site of cellulitis of extremity: lower extremity Laterality: right Qualified Code(s): L03.115 - Cellulitis of right lower limb (3) Diabetes Code(s): E11.9 - TYPE 2 DIABETES MELLITUS WITHOUT COMPLICATIONS (4) Neuropathy Code(s): G62.9 - POLYNEUROPATHY, UNSPECIFIED
--- NOTE | 2018-04-11 18:51 | PN ---
Progress Note, Physician Chief Complaint: EVENTS AND NOTES REVIEWED ON IV ABX COMFORTABLE - Current Medication List Current Medications: Active Medications Amlodipine Besylate (Norvasc -) 5 mg PO DAILY [facility] Last Admin: 04/11/18 09:19 Dose: 5 mg Atorvastatin Calcium (Lipitor -) 10 mg PO HS [facility] Last Admin: 04/10/18 21:21 Dose: 10 mg Cefazolin Sodium/Dextrose (Ancef 2 Gm Premixed Ivpb -) 2 gm IVPB Q8H-IV [facility] Last Admin: 04/11/18 18:41 Dose: 2 gm Clonazepam (Klonopin -) 1 mg PO BID [facility] Last Admin: 04/11/18 09:18 Dose: 1 mg Collagenase (Santyl -) 1 applic TP DAILY [facility]; Protocol Last Admin: 04/11/18 09:19 Dose: 1 applic Heparin Sodium (Porcine) (Heparin -) 5,000 unit SQ TID [facility] Last Admin: 04/11/18 13:32 Dose: 5,000 unit Ibuprofen (Motrin -) 600 mg PO TID [facility] Last Admin: 04/11/18 13:32 Dose: Not Given Insulin Aspart (Novolog Vial Sliding Scale -) 1 vial SQ ACHS [facility]; Protocol Last Admin: 04/11/18 16:58 Dose: Not Given Insulin Detemir (Levemir Vial) 30 units SQ 0700,2200 [facility] Last Admin: 04/11/18 06:40 Dose: 30 units Lisinopril (Prinivil) 10 mg PO DAILY [facility] Last Admin: 04/11/18 09:18 Dose: 10 mg Multivitamins/Minerals/Vitamin C (Tab-A-Vit -) 1 tab PO DAILY [facility] Last Admin: 04/11/18 09:18 Dose: 1 tab Pantoprazole Sodium (Protonix -) 20 mg PO DAILY [facility] Last Admin: 04/11/18 09:18 Dose: 20 mg Quetiapine Fumarate (Seroquel -) 50 mg PO HS [facility] Last Admin: 04/10/18 21:21 Dose: 50 mg Terazosin HCl (Hytrin -) 2 mg PO DAILY [facility] Last Admin: 04/11/18 09:19 Dose: 2 mg Zolpidem Tartrate (Ambien -) 5 mg PO HS PRN PRN Reason: INSOMNIA Last Admin: 04/10/18 22:32 Dose: 5 mg - Objective Vital Signs: Vital Signs Temperature 97.8 F 04/11/18 10:00 Pulse Rate 54 L 04/11/18 10:00 Respiratory Rate 18 04/11/18 10:00 Blood Pressure 144/67 04/11/18 10:00 O2 Sat by Pulse Oximetry (%) 96 04/11/18 10:00 Constitutional: Yes: No Distress Eyes: Yes: WNL HENT: Yes: WNL Neck: Yes: WNL Cardiovascular: Yes: WNL Respiratory: Yes: WNL Gastrointestinal: Yes: WNL Genitourinary: Yes: March Present Extremities: Yes: Amputation (LEFT BKA) Peripheral Pulses WNL: Yes Integumentary: Yes: Erythema, Pressure Ulcer, Rash, Venous Stasis Changes Wound/Incision: Yes: Dressing Dry and Intact, Reddened, Excoriated, Unapproximated Neurological: Yes: Pre-Existing Deficit ...Motor Strength: LLE (BKA) Psychiatric: Yes: WNL Labs: CBC, BMP 04/11/18 06:30 04/11/18 06:30 INR, PTT INR Cancelled 04/09/18 16:54 Problem List - Problems (1) Anemia Code(s): D64.9 - ANEMIA, UNSPECIFIED Qualifiers: Anemia type: B12 deficiency (2) Buttock wound Code(s): S31.809A - UNSPECIFIED OPEN WOUND OF UNSPECIFIED BUTTOCK, INIT ENCNTR Qualifiers: Laterality: right (3) Cellulitis Code(s): L03.90 - CELLULITIS, UNSPECIFIED Qualifiers: Site of cellulitis: extremity Site of cellulitis of extremity: lower extremity Laterality: right Qualified Code(s): L03.115 - Cellulitis of right lower limb (4) Diabetes mellitus with hyperosmolarity Code(s): E11.00 - TYPE 2 DIAB W HYPROSM W/O NONKET HYPRGLY-HYPROS COMA ([facility]) (5) Wound infection Code(s): T14.8XXA - OTHER INJURY OF UNSPECIFIED BODY REGION, INITIAL ENCOUNTER; L08.9 - LOCAL INFECTION OF THE SKIN AND SUBCUTANEOUS TISSUE, UNSP Assessment/Plan IV ABX SURGERY/PODIATRY EVAL ID F/U ARTEMIO TO BE CHANGED BY PAIN CONTROL DVT PROPHYLAXIS
[2018-04-11] MEDS ORDERED: QUEtiapine FUMARATE 25 MG TABLET (FP) ONE ×2 (22:06→22:07)
[2018-04-11] MEDS: ATORVASTATIN CA 10 MG TABLET (FP) PO SCH (22:55)
[2018-04-11] MEDS: ZOLPIDEM TARTRATE 5 MG TABLET PO PRN (22:56)
[2018-04-11] MEDS: QUEtiapine FUMARATE 50 MG TABLET PO SCH (23:01)
[2018-04-12] MEDS: ceFAZolin 2 GRAM PREMIX BAG IVPB SCH ×2 (01:56→09:22)
[2018-04-12] MEDS: INSULIN (LEVEMIR) 100 UNITS/ML UNITS SQ SCH (06:33)
[2018-04-12] MEDS: HEPARIN NA (PORCINE) 5,000 UNITS/ML 1ML VIAL SQ SCH (06:33)
[2018-04-12] MEDS: IBUPROFEN 400 MG TABLET (FP) PO SCH (06:34)
[2018-04-12] MEDS: INSULIN SLIDING SCALE (NOVOLOG) 1 VIAL SQ SCH ×2 (06:34→11:14)
[2018-04-12] MEDS: COLLAGENASE CLOSTRIDIUM HIST. 30 GRAMS TUBE TP SCH (09:22)
[2018-04-12] MEDS: PANTOPRAZOLE 20 MG TABLET (FP) PO SCH (09:23)
[2018-04-12] MEDS: MULTIVITAMINS (DAILY MVI) TABLET (FP) PO SCH (09:23)
[2018-04-12] MEDS: amLODIPine BESYLATE 5 MG TABLET (FP) PO SCH (09:23)
[2018-04-12] MEDS: LISINOPRIL 5 MG TABLET (FP) PO SCH (09:23)
[2018-04-12] MEDS: clonazePAM 0.5 MG TABLET PO SCH (09:23)
[2018-04-12] MEDS ORDERED: TERAZOSIN HCL 1 MG CAPSULE PO SCH (10:00)
--- NOTE | 2018-04-12 10:44 | DS ---
Physical Examination Vital Signs: Vital Signs Temperature 97.7 F 04/12/18 05:00 Pulse Rate 61 04/12/18 05:00 Respiratory Rate 20 04/12/18 05:00 Blood Pressure 112/54 L 04/12/18 05:00 O2 Sat by Pulse Oximetry (%) 96 04/11/18 21:00 Constitutional: Yes: No Distress Eyes: Yes: WNL HENT: Yes: WNL Neck: Yes: WNL Cardiovascular: Yes: WNL Respiratory: Yes: WNL Gastrointestinal: Yes: WNL, Soft, Abdomen, Obese Renal/: Yes: Elizabeth Present Musculoskeletal: Yes: Muscle Weakness Extremities: Yes: Amputation Edema: Yes Edema: RLE: 2+ Integumentary: Yes: Erythema, Venous Stasis Changes Wound/Incision: Yes: Open to air Neurological: Yes: Unsteady Gait, Weakness ...Motor Strength: LLE (bka) Psychiatric: Yes: WNL Labs: CBC, BMP 04/11/18 06:30 04/11/18 06:30 Discharge Summary Reason For Visit: LOCAL INFECTION OF THE WOUND Current Active Problems Anemia (Acute) Buttock wound (Acute) Cellulitis (Acute) Diabetes mellitus with hyperosmolarity (Acute) Electrolyte abnormality (Acute) Neuropathy (Acute) Wound infection (Acute) Procedures: Principal: labs/xrays/sono Hospital Course: admitted iv bx for leg cellulitis, elizabeth changed. will need po abx keflex for 7 days and gu consult for outpatient suprapubic cath Condition: Stable - Instructions Diet, Activity, Other Instructions: follow with gu for suprapubic cath see your doctor in 1-2 weeks Referrals: Richard Sommers MD [Primary Care Provider] - Disposition: VNS/HOME HEALTH CARE - Home Medications Comprehensive Discharge Medication List: Ambulatory Orders Atorvastatin Calcium [Lipitor] 10 mg PO DAILY 06/30/16 Multivit-Min/Iron Fum/Folic AC [Vpsvl-Rcrekaf-Hrbweurq Tablet] 1 each PO DAILY 06/30/16 Quetiapine Fumarate [Seroquel -] 50 mg PO PRN 06/30/16 clonazePAM [KlonoPIN -] 1 mg PO BID 06/30/16 Amlodipine Besylate 5 mg PO DAILY 04/09/18 Ibuprofen [Advil -] 600 mg PO TID 04/09/18 Insulin (Novolog) [Novolog -] 20 units SQ TID 04/09/18 Insulin Detemir [Levemir Flextouch] 30 unit SQ BID 04/09/18 Lisinopril [Prinivil] 10 mg PO DAILY 04/09/18 Omeprazole 20 mg PO DAILY 04/09/18 Terazosin HCl 2 mg PO DAILY 04/09/18 Zolpidem Tartrate [Ambien] 20 mg PO HS 04/09/18 Cephalexin [Keflex] 500 mg PO TID #21 capsule 04/12/18
[2018-04-12] MEDS ORDERED: ONDANSETRON *ODT* 4 MG TABLET SL PRN (11:00)
[2018-04-12 11:44] VITALS: BP 105/58; PULSE 54; TEMP 98
[2018-04-12] MEDS ORDERED: AMMONIUM LACTATE 12% LOTION 225 GM BOTTLE TP SCH ×2 (12:30→22:00)
[2018-04-13 00:07] LABS: SERUM IRON SATURATION 14 % (15-55); TOTAL IRON BINDING CAPACITY 252 ug/dL (250-450); UIBC 216 ug/dL (111-343)
== END 2018-04-12 13:12 | disposition home health service (06) | DRG 603 ==
LOC: JER 15:42 → JERBED 18:15 → J6S 20:23
PROVIDERS: ADMIT Internal Medicine; ATTEND Family Medicine
PROC: 0T2BX0Z Change Drainage Device in Bladder, External Approach (ICD-10-PCS; principal; 2018-04-11)
DX: L03.317 Cellulitis of buttock (principal); L03.115 Cellulitis of right lower limb; Z68.41 Body mass index [BMI] 40.0-44.9, adult; N39.0 Urinary tract infection, site not specified; L98.418 Non-pressure chronic ulcer of buttock with other specified severity; E66.01 Morbid (severe) obesity due to excess calories; I10 Essential (primary) hypertension; E11.40 Type 2 diabetes mellitus with diabetic neuropathy, unspecified; I87.2 Venous insufficiency (chronic) (peripheral); Z46.6 Encounter for fitting and adjustment of urinary device; Z89.512 Acquired absence of left leg below knee; N31.9 Neuromuscular dysfunction of bladder, unspecified; Z79.1 Long term (current) use of non-steroidal anti-inflammatories (NSAID); G47.00 Insomnia, unspecified; E78.5 Hyperlipidemia, unspecified; F32.9 Major depressive disorder, single episode, unspecified; F41.9 Anxiety disorder, unspecified; Z96.653 Presence of artificial knee joint, bilateral; N40.0 Benign prostatic hyperplasia without lower urinary tract symptoms; E87.8 Other disorders of electrolyte and fluid balance, not elsewhere classified
CPT/HCPCS: 36415; 71045-TC-FY; 80048; 80053; 81003; 81015; 82728; 82962; 83036; 83540; 83550; 83605; 83735; 84443; 85025; 85027; 87040; 87086; 90688; 93005; 93010; 99284-25; G0008; G0463-25; J1644